=== PATIENT | female | born 1940 | race Caucasian/White ===

== ENCOUNTER → 2016-11-25 | Outpatient (CLI) | payer MEDICARE ==
[~2016-11-25] MED LIST: AC500T PO; AC80CT PO; ACET-789 PO; ACET80DR75 PO; ASP81TEC PO; CARV12.53 PO; CEPH500C PO; CHOL10003 PO; CLOP75TA PO; DABI150C2 PO; ENAL5TAB PO; FEXO1TAB49 PO; FURO20TA4 PO; GABA-531 PO; HCT25T PO; LVT.05T PO; MELO-195 PO; MTF500T PO; OMEP40CA36 PO; OXYC-12 PO; PNT40TEC PO; POTASSIUM CHLORIDE 10 MEQ; PRAV40TA2 PO; PROP1TAB77 PO; RIVA20TA2 PO; SIMV20TA3 PO; SOTA80TA38 PO; TRM50T PO; UBID100C17 PO; VIT1TABL57 PO
--- OUTSIDE RECORDS SUMMARY | 2016-11-25 07:51 | XMS REPORT | Clinical Summary ---
Author Author Admin, LAI Organization [facility] Address Unknown Phone Unavailable Allergies, Adverse Reactions, Alerts Allergy Name Reaction Description Start Date Severity Status Provider PRAVACHOL Critical Active Malick Moreira MD IMDUR Critical Active Malick Moreira MD LIPITOR Critical Active Malick Moreira MD Conditions or Problems Problem Name Problem Code Onset Date Status Entry Date Provider Comment Standard Description Annotate Hyperlipidemia 272.4 Active Malick Moreira MD Other and unspecified hyperlipidemia Hypothyroidism 244.9 Active Malick Moreira MD Unspecified hypothyroidism U T I-Recurrent Active Malick Moreira MD Urinary tract infection, site not specified Incomplete Bladder Emptying Active Malick Moreira MD Retention of urine, unspecified Bladder Prolapse Active Malick Moreira MD Unspecified disorder of bladder Medication List Medication Instructions Start Date Stop Date Generic Name NDC Status Provider Patient Instruction CIPRO 500 MG TABS 1 tablet twice a day CIPROFLOXACIN HCL 57776363151 No Longer Active Malick Moreira MD Active CEFTIN 500 MG ORAL TABS bid CEFUROXIME AXETIL 25511379283 No Longer Active Malick Moreira MD Active CARVEDILOL 12.5 MG ORAL TABS bid CARVEDILOL 15783507657 Active Malick Moreira MD Active CEFTIN 500 MG ORAL TABS bid CEFTIN 500 MG ORAL TABS 707459 CEFUROXIME AXETIL Inactive CIPRO 500 MG TABS 1 tablet twice a day CIPRO 500 MG TABS 476983 CIPROFLOXACIN HCL Inactive Vital Signs Date Name Value Unit Range Description blood pressure, diastolic - 8462-4 75 mm[Hg] BP maldonado blood pressure, systolic - 8480-6 120 mm[Hg] BP sys pulse rate E&M - 8867-4 65 /min Heart rate temperature E&M 97.6 [degF] Body temperature weight E&M - 3141-9 167 [lb_av] Weight Measured height E&M - 8302-2 190 [in_us] Bdy height pulse rate E&M - 8867-4 6 /min Heart rate temperature E&M 97.5 [degF] Body temperature weight E&M - 3141-9 67.5 [lb_av] Weight Measured Diagnostic Results Date Name Value Unit Range Description Office Visit: 2 week follow up UTI - Chemistry RBC, urine, dipstick 2+ protein, total urine random negative mg/dL Office Visit: 2 week follow up UTI - Urinalysis pH, urine, semiquantitative 5 specific gravity, urine 1.010 ketones, urine, by test strip negative bilirubin, urine negative glucose, urine, semiquantitative 2+ urinalysis, routine Clean Catch culture status Yes urine color yellow appearance, urine clear leukocyte esterase, urine, by dipstick 2+ nitrite, urine, semiquantitative negative urobilinogen, urine, semiquantitative (dipstick) negative protein, urine, semiquantitative (dipstick) negative Encounters Code Encounter Date Provider Facility CPT-76978 Level 3 Est. Patient 16:01:05 SMALL ENGINE TECHNICIAN Malick Moreira MD [facility] CPT-72554 Level 3 New Patient 16:48:49 SMALL ENGINE TECHNICIAN Malick Moreira MD [facility] Procedures Code Procedure Name Date Entry Date Standard Description CPT-52507 Urine Dip (Floor Use Only) 16:01:16 SMALL ENGINE TECHNICIAN CPT-53190 Cystoscopy 16:01:06 SMALL ENGINE TECHNICIAN CPT-35010 Dil F ureth int 16:01:05 SMALL ENGINE TECHNICIAN CPT-14048 Urine Dip (Floor Use Only) 16:48:49 SMALL ENGINE TECHNICIAN CPT-43393 Bladder Scan 16:48:49 SMALL ENGINE TECHNICIAN
--- NOTE | 2016-11-27 11:59 | ECHOCARDIOGRAPHY REPORT ---
PROCEDURE PHYSICIAN: AMADA STOUT DATE OF PROCEDURE: 11/25/2016 TWO DIMENSIONAL ECHOCARDIOGRAM REPORT PRIMARY PHYSICIAN: OTHER PHYSICIAN: REFERRING PHYSICIAN: Dr. Kristen Morton ORDERING PHYSICIAN: INDICATION FOR THE PROCEDURE: Coronary artery disease, hypertension MEASUREMENTS DERIVED VALUES LV DIAMETER (LAX) NORMALS NORMALS Diastolic 4.1 (3.6-5.2) Eject. Fract. 50% (60%+/-6%) Systolic (2.3-3.9) Diastolic Vol. % Shortening (0.22-0.42) Systolic Vol. Aortic Root IVS THICKNESS Diastolic 1.2 (0.6-1.1) LVPW THICKNESS Diastolic 1.2 (0.6-1.1) LA DIAMETER Systolic 5.5 (2.1-3.7) FINDINGS: 1. Technical quality is good. 2. The left ventricle is dilated with systolic function preserved in the lower normal limits. Estimated ejection fraction 50%. 3. The left atrium is dilated. No clot or thrombus were seen within the left atrium. 4. The right atrium and right ventricle are normal in size. No clot or thrombus were seen within the right side. 5. Mitral valve is normal in morphology with moderate mitral regurgitation noted by color Doppler flow. No mitral valve prolapse. No mitral valve stenosis. 6. Aortic valve is trileaflet with normal opening and closing pattern. No significant aortic stenosis or regurgitation was seen. 7. Tricuspid valve is normal in morphology with moderate to severe tricuspid regurgitation noted by color Doppler flow. Doppler across tricuspid valve estimated pulmonary artery pressure of 39+ right atrial pressure. 8. Pulmonic valve is normal in morphology with mild pulmonary regurgitation noted by color Doppler flow. 9. No pericardial effusion. CONCLUSION: 1. Mild to moderate left ventricular hypertrophy with dilated left ventricle. Systolic function is preserved. Estimated ejection fraction 50%. 2. Left atrial enlargement. 3. Moderate mitral regurgitation, moderate to severe tricuspid regurgitation, mild pulmonary regurgitation. 4. Pulmonary hypertension with estimated pulmonary artery pressure of 45 mmHg Job ID: [id number] Dictated Date: 11/27/2016 08:18:11 Pattern Maker Programer Date: 11/27/2016 11:51:40 / david
== END ==
LOC: CARD 07:47
PROVIDERS: ATTEND Internal Medicine Cardiovascular Disease
DX: I25.10 Atherosclerotic heart disease of native coronary artery without angina pectoris (principal); I11.0 Hypertensive heart disease with heart failure; E78.2 Mixed hyperlipidemia; I48.0 Paroxysmal atrial fibrillation; I51.7 Cardiomegaly
CPT/HCPCS: 93306

== ENCOUNTER → 2016-12-04 | Outpatient (CLI) | payer MEDICARE ==
[~2016-12-04] MED LIST changes: +REGADENOSON 0.4 MG/5 ML SYR (LEXISCAN) IV ONE
[2016-12-04] MEDS: CATHETER FLUSH 10 ML SYR IV PRN ×2 (08:27→09:57)
[2016-12-04 09:54] VITALS: BP 163/85
--- NOTE | 2016-12-05 09:54 | STRESS TEST ---
PROCEDURE PHYSICIAN: AMADA STOUT DATE OF PROCEDURE: 12/04/2016 LEXISCAN MYOVIEW STRESS TEST REPORT: REFERRING PHYSICIAN: Dr. Kristen Morton. INDICATION: Coronary artery disease. BASELINE HEART RATE: 56 BASELINE BLOOD PRESSURE: 163/85 BASELINE EKG: Sinus rhythm with no ischemic changes. IN SUMMARY: The patient was injected with 10.41 mCi of technetium 99 Myoview and the resting images were obtained. Then the patient received 0.4 mg of Lexiscan followed by 30 mCi of technetium 99 Myoview. Throughout the test, there were no EKG changes. The resting and stress images were reviewed and compared in the short axis, horizontal long axis, and vertical long axis views. Review of the images showed breast attenuation. There is reversible ischemia involving the whole anterior wall, portion of the anterior septum and anterolateral wall. SSS is 7, SDS 6, TID value 0.91. On the gated images, the left ventricle appeared to be normal size with normal contractility. Calculated ejection fraction 65%. IN CONCLUSION: 1. The patient tolerated Lexiscan well. 2. Reversible ischemia involving the whole anterior wall, portion of the anterior lateral wall, anterior septum, with breast attenuation. 3. Normal left ventricular size with normal contractility. Calculated ejection fraction 65%. Job ID: [id number] Dictated Date: 12/05/2016 07:04:45 Hospitality Intern Date: 12/05/2016 09:50:51 / manisha
== END ==
LOC: CARD 07:59
PROVIDERS: ATTEND Internal Medicine Cardiovascular Disease
DX: I25.10 Atherosclerotic heart disease of native coronary artery without angina pectoris (principal); I11.0 Hypertensive heart disease with heart failure; E78.2 Mixed hyperlipidemia; I48.0 Paroxysmal atrial fibrillation; I51.7 Cardiomegaly
CPT/HCPCS: 78452; 93017

== ENCOUNTER 2016-12-11 06:44 | Day surgery (SDC) | payer MEDICARE ==
[~2016-12-11] VITALS: Ht 170.2 cm; Wt 87.1 kg
[2016-12-11] VITALS (10 sets, daily range): BP systolic 124–147; BP diastolic 62–82
[~2016-12-11 06:44] MED LIST changes: -ACET-789 PO; -GABA-531 PO; -PRAV40TA2 PO; -REGADENOSON 0.4 MG/5 ML SYR (LEXISCAN) IV ONE
[2016-12-11] MEDS ORDERED: LIDOCAINE 1% INJ 20 ML (XYLOCAINE) VIAL ONE (06:55)
[2016-12-11] MEDS ORDERED: NS IV 1000 ML 1,000 ML ONE (06:55)
[2016-12-11] MEDS ORDERED: HEParin (CATH LAB) 2,000 ML IV ONE (06:55)
[2016-12-11] MEDS ORDERED: NS IV 1000 ML 1,000 ML IV SCH ×3 (07:02→08:39)
[2016-12-11 07:30] LABS: MEAN PLATELET VOLUME 10.4 FL (7.4-10.4); RED BLOOD COUNT 4.42 10^6/uL (4.35-5.85); RED CELL DISTRIBUTION WIDTH 13.5 % (10.0-14.5); WHITE BLOOD COUNT 6.2 10^3/uL (4.3-11.0)
[2016-12-11 07:37] LABS: BILIRUBIN,URINE NEGATIVE (NEGATIVE); KETONES,URINE NEGATIVE (NEGATIVE); LEUKOCYTE ESTERASE ,URINE 1+ (NEGATIVE); NITRITE,URINE NEGATIVE (NEGATIVE); PH,URINE 6.5 (5-9); PROTEIN,URINE NEGATIVE (NEGATIVE); UROBILINOGEN,URINE NORMAL (NORMAL)
[2016-12-11 07:40] LABS: INR 1.2 (0.8-1.4); PROTHROMBIN TIME PATIENT 15.1 SEC (12.2-14.7)
[2016-12-11 07:49] LABS: SQUAMOUS EPITHELIAL CELL,UR 0-2 /HPF; WBC,URINE 0-2 /HPF
[2016-12-11] MEDS ORDERED: ACET-789 PO (07:54)
[2016-12-11] MEDS ORDERED: GABA-531 PO (07:54)
[2016-12-11] MEDS ORDERED: PRAV40TA2 PO (07:54)
[2016-12-11 07:55] LABS: ALBUMIN 4.1 G/DL (3.2-4.5); BILIRUBIN,TOTAL 0.6 MG/DL (0.1-1.0); CALCIUM 9.8 MG/DL (8.5-10.1); CREATININE SERUM 1.09 MG/DL (0.60-1.30); TOTAL PROTEIN 6.8 G/DL (6.4-8.2)
[2016-12-11] MEDS ORDERED: MIDAZOLAM 5 MG/5 ML (VERSED) VIAL ONE (07:56)
[2016-12-11] MEDS ORDERED: fentaNYL INJECTION 100 MCG/2 ML AMP ONE (07:56)
--- NOTE | 2016-12-11 08:17 | Cardiac Procedure Note-CS/ASA ---
Pre-Procedure Note Pre-Op Procedure Note H&P Reviewed The H&P was reviewed, patient examined and no changes noted. Date H&P Reviewed: Dec 11, 2016 Time H&P Reviewed: 08:17 Conscious Sedation Pre-Proced Time Reviewed: 08:17 ASA Class: 3 Airway Mallampati Classification: (tanana appropriate class) I. II. III, IV Lungs Heart ASA score ASA 1: a normal healthy patient ASA 2: a patient with a mild systemic disease (mid diabetes, controlled hypertension, obesity x ASA 3: a patient with a severe systemic disease that limits activity (angina , COPD, prior Myocardial infarction) ASA 4: a patient with an incapacitating disease that is a constant threat to life (CHF, renal failure) ASA 5: a moribund patient not expected to survive 24 hrs. (ruptured aneurysm) ASA 6: a declared brain patient whose organs are being harvested. For emergent operations, add the letter E after the classification Grade 3 Sedation Plan: Analgesia, Amnesia, Plan communicated to team members, Discussed options with patient/fam, Discussed risks with patient/fam Note The patient is an appropriate candidate to undergo the planned procedure, sedation, and anesthesia. The patient immediately re-assessed prior to indication. AMADA STOUT MD Dec 11, 2016 08:17
--- NOTE | 2016-12-11 08:18 | Diagnostic Imaging Report ---
INDICATION: Coronary artery disease PA chest obtained at 7:38 hours a.m. Heart is mildly enlarged. The mediastinal silhouette is unremarkable. There is no acute infiltrate or pneumothorax or pleural fluid. IMPRESSION: Cardiomegaly with no acute process in the chest. Dictated by: Dictated on workstation # [id number]
--- NOTE | 2016-12-11 08:41 | Discharge Inst-Post CATH ---
Discharge Inst-CATH Post Cardiac Cath D/C Inst Follow Up/Plan Appointment with Dr Tabor's office in 2-4 weeks CARDIAC CATH DISCHARGE INSTRUCTIONS *Hold Metformin for 48 hours post heart cath. ACTIVITY * Go Home directly and rest. * Limit activity of the leg (or wrist if it was used) for 7 days including aerobics, swimming, jogging, bicycling, etc. * Restrict stair-climbing for 7 days if possible, if not, climb up with your non -cath leg, then bring together on the same step. * Avoid lifting, pushing, pulling or excessive movement of the affected extremity for 7 days. * Customary sexual activity may be resumed after 2 days-use caution not to use a position that strains or causes pain to the affected extremity. * No driving for 24 hours. * NO SMOKING. * Avoid straining for bowel movements for 7 days. * Gentle walking on level ground is allowed. * Returning to work will depend on the type of procedure and the results. Your doctor will discuss this with you. CALL YOUR DOCTOR FOR ANY OF THE FOLLOWING: *If bleeding from the puncture site occurs- Apply gentle pressure to site with clean cloth and call your doctor or EMS. * If a knot or lump forms under the skin, increases in size, or causes pain. * If bruising appears to be worsening or moving further down your leg instead of disappearing. * Temperature above 101 F. CARE OF YOUR GROIN INCISION; * Bruising or purple discoloration of the skin near the puncture site is common. * You may shower only, no bathtub bathing for 5 days. Be careful to avoid slipping as your leg may feel stiff. * If a closure device was used on your femoral artery, please see the attached guide regarding care of the device and your leg. * REMOVE the dressing from your groin the next day after your procedure in the shower. CARE OF YOUR WRIST INCISION; * Bruising or purple discoloration of the skin near the puncture site is common. * You may shower. * DO NOT submerge wrist. * Remove dressing in 24 hours. AMADA TABOR MD Dec 11, 2016 08:41
[2016-12-11] MEDS ORDERED: PATIENT MAY USE OWN MEDS, ALL PO SCH (08:45)
--- NOTE | 2016-12-11 13:56 | CARDIAC CATHETERIZATION ---
PROCEDURE PHYSICIAN: AMADA STOUT DATE OF PROCEDURE: 12/11/2016 REFERRING PHYSICIAN: Dr. Kristen Morton BRIEF HISTORY: Mrs. Castro is a 76-year-old lady with history of coronary artery disease. Stent to the LAD. She had an abnormal stress test. She was scheduled for left heart catheterization, possible PTCA. PROCEDURE NOTE: After explaining the procedure to the patient, all pros and cons were explained. All questions were answered. The patient signed a consent, then she was placed on the cardiac catheterization laboratory. The right groin was prepped in a sterile fashion. Local anesthesia applied to right groin. 6-Vietnamese sheath was placed in the right femoral artery. Combination of right and left Shahbaz catheter were used to access the right and left coronary system. Multiple views were obtained. Pigtail catheter advanced to the left ventricular cavity. Pressure was measured. Pullback LV to aorta was done. No left ventriculogram was done. At the end of the procedure, sheath was removed. Mynx device deployed. Hemostasis achieved. Total contrast used is 40 milliliter of Omnipaque. Total radiation dose is 203 mGy. FINDINGS: HEMODYNAMICS: LV pressure 135/7, end-diastolic pressure of 7, aortic pressure 133/62, mean of 88. No significant gradient across the aortic valve. ANATOMY: 1. Left main coronary artery is bifurcating to left anterior descending and left circumflex artery with no obstructive disease. 2. Left anterior descending artery is moderate in size. Tapers down into a smaller artery. Stent in the mid LAD is patent. Small vessel disease distally. 3. Left circumflex artery is moderate in size with no obstructive disease. 4. Right coronary artery is moderate in size with mild disease proximally, nonobstructive disease. 5. No left ventriculogram was done. CONCLUSION: 1. Patent stent in the mid LAD with the LAD tapering down into a small artery. Small vessel disease distally. Otherwise, no significant obstructive disease. 2. Normal left ventricular end-diastolic pressure. No left ventriculogram was done. DISCUSSION AND RECOMMENDATION: Medical therapy is recommended. No intervention is warranted. Job ID: [id number] Dictated Date: 12/11/2016 08:48:18 Social Sciences Chair Date: 12/11/2016 13:49:42 / david
--- NOTE | 2016-12-12 07:41 | DISCHARGE SUMMARY ---
PROCEDURE PHYSICIAN: AMADA STOUT DATE OF PROCEDURE: 12/11/2016 REFERRING PHYSICIAN: Dr. Kristen Morton BRIEF HISTORY: Mrs. Castro is a 76-year-old lady with history of coronary artery disease. Stent to the LAD. She had an abnormal stress test. She was scheduled for left heart catheterization, possible PTCA. PROCEDURE NOTE: After explaining the procedure to the patient, all pros and cons were explained. All questions were answered. The patient signed a consent, then she was placed on the cardiac catheterization laboratory. The right groin was prepped in a sterile fashion. Local anesthesia applied to right groin. 6-Yakut sheath was placed in the right femoral artery. Combination of right and left Shahbaz catheter were used to access the right and left coronary system. Multiple views were obtained. Pigtail catheter advanced to the left ventricular cavity. Pressure was measured. Pullback LV to aorta was done. No left ventriculogram was done. At the end of the procedure, sheath was removed. Mynx device deployed. Hemostasis achieved. Total contrast used is 40 milliliter of Omnipaque. Total radiation dose is 203 mGy. FINDINGS: HEMODYNAMICS: LV pressure 135/7, end-diastolic pressure of 7, aortic pressure 133/62, mean of 88. No significant gradient across the aortic valve. ANATOMY: 1. Left main coronary artery is bifurcating to left anterior descending and left circumflex artery with no obstructive disease. 2. Left anterior descending artery is moderate in size. Tapers down into a smaller artery. Stent in the mid LAD is patent. Small vessel disease distally. 3. Left circumflex artery is moderate in size with no obstructive disease. 4. Right coronary artery is moderate in size with mild disease proximally, nonobstructive disease. 5. No left ventriculogram was done. CONCLUSION: 1. Patent stent in the mid LAD with the LAD tapering down into a small artery. Small vessel disease distally. Otherwise, no significant obstructive disease. 2. Normal left ventricular end-diastolic pressure. No left ventriculogram was done. DISCUSSION AND RECOMMENDATION: Medical therapy is recommended. No intervention is warranted. FINAL DIAGNOSIS: 1. Coronary artery disease. 2. Hypertension. 3. Hyperlipidemia. Job ID: [id number] Dictated Date: 12/11/2016 08:48:18 Content Publisher Date: 12/11/2016 13:55:52/david
== END 2016-12-11 13:05 | disposition home or self-care (01) ==
LOC: CATH 06:44 → SURG 08:58 → CATH 13:05
PROVIDERS: ATTEND Internal Medicine Cardiovascular Disease
DX: R94.39 Abnormal result of other cardiovascular function study (principal); I25.10 Atherosclerotic heart disease of native coronary artery without angina pectoris; I10 Essential (primary) hypertension; E78.5 Hyperlipidemia, unspecified; I48.0 Paroxysmal atrial fibrillation; J44.9 Chronic obstructive pulmonary disease, unspecified; G47.33 Obstructive sleep apnea (adult) (pediatric); E03.9 Hypothyroidism, unspecified; K21.9 Gastro-esophageal reflux disease without esophagitis; Z79.899 Other long term (current) drug therapy; Z79.01 Long term (current) use of anticoagulants; Z95.5 Presence of coronary angioplasty implant and graft
CPT/HCPCS: 36415; 71010; 80053; 80061; 81000; 85027; 85610; 85730; 87081; 93005; 93458

== ENCOUNTER 2017-04-12 09:26 | Observation (INO) | payer MEDICARE ==
[~2017-04-12] VITALS: Ht 170.2 cm; Wt 87.1 kg
[~2017-04-12 09:26] MED LIST changes: +ACET-789 PO; +GABA-531 PO; +PRAV40TA2 PO
--- OUTSIDE RECORDS SUMMARY | 2017-04-12 09:31 | XMS REPORT | Clinical Summary ---
Author Author Admin, LAI Organization [facility] Address Unknown Phone Unavailable Allergies, Adverse Reactions, [...] Status Provider Patient Instruction CIPRO 500 MG TAB 1 tablet two times daily CIPROFLOXACIN HCL 28620542556 Active Anahy Francisco Active CIPRO 500 MG TABS 1 tablet twice a day CIPROFLOXACIN HCL 87481895835 No Longer Active Malick Moreira MD Active CEFTIN 500 MG ORAL TABS bid CEFUROXIME AXETIL 49018558476 No Longer Active Malick Moreira MD Active CARVEDILOL 12.5 MG ORAL TABS bid CARVEDILOL 46200793384 Active Malick Moreira MD Active CEFTIN 500 MG ORAL TABS bid CEFTIN 500 MG ORAL TABS 431587 CEFUROXIME AXETIL Inactive CIPRO 500 MG TABS 1 tablet twice a day CIPRO 500 MG TABS 293615 CIPROFLOXACIN HCL Inactive Vital Signs Date Name Value Unit Range Description blood pressure, diastolic - 8462-4 73 mm[Hg] BP maldonado blood pressure, systolic - 8480-6 133 mm[Hg] BP sys pulse rate E&M - 8867-4 81 /min Heart rate temperature E&M 96.9 [degF] Body temperature weight E&M - 3141-9 190.4 [lb_av] Weight Measured blood pressure, diastolic - 8462-4 75 mm[Hg] [...] negative Encounters Code Encounter Date Provider Facility CPT-87762 Level 3 Est. Patient 14:34:12 CDT Malick Moreira MD [facility] CPT-15028 Level 3 Est. Patient 08:00:19 CDT Malick Moreira MD [facility] CPT-27978 Level 3 Est. Patient 16:01:05 LONG TERM CARE PHARMACIST Malick Moreira MD [facility] [place] CPT-96464 Level 3 New Patient 16:48:49 LONG TERM CARE PHARMACIST Malick Moreira MD [facility] [place] Procedures Code Procedure Name Date Entry Date Standard Description CPT-27765 Urine Dip (Floor Use Only) 14:34:13 CDT CPT-49736 Insert non indwelling bld cath 08:00:20 CDT CPT-01047 Bladder Scan 08:00:20 CDT CPT-56986 Urine Dip (Floor Use Only) 16:01:16 LONG TERM CARE PHARMACIST CPT-33427 Cystoscopy 16:01:06 LONG TERM CARE PHARMACIST CPT-30542 Dil F ureth int 16:01:05 LONG TERM CARE PHARMACIST CPT-37970 Urine Dip (Floor Use Only) 16:48:49 LONG TERM CARE PHARMACIST CPT-61163 Bladder Scan 16:48:49 LONG TERM CARE PHARMACIST
--- OUTSIDE RECORDS SUMMARY | 2017-04-12 09:32 | XMS REPORT | Clinical Summary ---
Author Author Admin, LAI Organization [facility] Address Unknown Phone Unavailable Allergies, Adverse Reactions, [...] 1 tablet two times daily CIPROFLOXACIN HCL 79997336847 No Longer Active Anahy Francisco Active CIPRO 500 MG TABS 1 tablet twice a day CIPROFLOXACIN HCL 51310783346 No Longer Active Malick Moreira MD Active CEFTIN 500 MG ORAL TABS bid CEFUROXIME AXETIL 07136507676 No Longer Active Malick Moreira MD Active CARVEDILOL 12.5 MG ORAL TABS bid CARVEDILOL 68550655866 Active Malick Moreira MD Active CEFTIN 500 MG ORAL TABS bid CEFTIN 500 MG ORAL TABS 415749 CEFUROXIME AXETIL Inactive CIPRO 500 MG TABS 1 tablet twice a day CIPRO 500 MG TABS 688844 CIPROFLOXACIN HCL Inactive CIPRO 500 MG TAB 1 tablet two times daily CIPRO 500 MG TAB 774384 CIPROFLOXACIN HCL Inactive Vital Signs Date Name Value Unit Range Description blood pressure, diastolic - 8462-4 58 mm[Hg] BP maldonado blood pressure, systolic - 8480-6 106 mm[Hg] BP sys pulse rate E&M - 8867-4 59 /min Heart rate temperature E&M 96.6 [degF] Body temperature weight E&M - 3141-9 191 [lb_av] Weight Measured blood pressure, diastolic - 8462-4 73 mm[Hg] [...] (dipstick) negative protein, urine, semiquantitative (dipstick) negative Office Visit: Follow up UTI - Chemistry RBC, urine, dipstick 1+ protein, total urine random negative mg/dL Office Visit: Follow up UTI - Urinalysis pH, urine, semiquantitative 5 specific gravity, urine 1.015 urinalysis, routine Clean Catch culture status Yes ketones, urine, by test strip negative bilirubin, urine negative glucose, urine, semiquantitative negative urine color yellow appearance, urine clear leukocyte esterase, urine, by dipstick 3+ nitrite, urine, semiquantitative positive urobilinogen, urine, semiquantitative (dipstick) 0.2 protein, urine, semiquantitative (dipstick) negative Encounters Code Encounter Date Provider Facility CPT-30234 Level 3 Est. Patient 14:18:16 CDT Malick Moreira MD [facility] CPT-73961 Level 3 Est. Patient 14:34:12 CDT Malick Moreira MD [facility] CPT-35874 Level 3 Est. Patient 08:00:19 CDT Malick Moreira MD [facility] CPT-43312 Level 3 Est. Patient 16:01:05 STABILIZING MACHINE OPERATOR Malick Moreira MD [facility] CPT-36896 Level 3 New Patient 16:48:49 STABILIZING MACHINE OPERATOR Malick Moreira MD [facility] [place] Procedures Code Procedure Name Date Entry Date Standard Description CPT-47769 Urine Dip (Floor Use Only) 14:18:17 CDT CPT-15831 Bladder Scan 14:18:17 CDT CPT-28161 Urine Dip (Floor Use Only) 14:34:13 CDT CPT-55670 Insert non indwelling bld cath 08:00:20 CDT CPT-42831 Bladder Scan 08:00:20 CDT CPT-27547 Urine Dip (Floor Use Only) 16:01:16 STABILIZING MACHINE OPERATOR CPT-84625 Cystoscopy 16:01:06 STABILIZING MACHINE OPERATOR CPT-55494 Dil F ureth int 16:01:05 STABILIZING MACHINE OPERATOR CPT-85213 Urine Dip (Floor Use Only) 16:48:49 STABILIZING MACHINE OPERATOR CPT-37717 Bladder Scan 16:48:49 STABILIZING MACHINE OPERATOR
--- OUTSIDE RECORDS SUMMARY | 2017-04-12 09:32 | XMS REPORT | Clinical Summary ---
Author Author Admin, NewAer Organization [facility] Address Unknown Phone Unavailable Allergies, Adverse Reactions, [...] 1 tablet twice a day CIPROFLOXACIN HCL 37166788656 No Longer Active Malick Moreira MD Active CEFTIN 500 MG ORAL TABS bid CEFUROXIME AXETIL 10560708645 No Longer Active Malick Moreira MD Active CARVEDILOL 12.5 MG ORAL TABS bid CARVEDILOL 50960901105 Active Malick Moreira MD Active CEFTIN 500 MG ORAL TABS bid CEFTIN 500 MG ORAL TABS 077886 CEFUROXIME AXETIL Inactive CIPRO 500 MG TABS 1 tablet twice a day CIPRO 500 MG TABS 183427 CIPROFLOXACIN HCL Inactive Vital Signs Date Name [...] negative Encounters Code Encounter Date Provider Facility CPT-34889 Level 3 Est. Patient 08:00:19 CDT Malick Moreira MD [facility] CPT-34631 Level 3 Est. Patient 16:01:05 TECHNICAL SALES SPECIALIST Malick Moreira MD [facility] CPT-96895 Level 3 New Patient 16:48:49 TECHNICAL SALES SPECIALIST Malick Moreira MD [facility] Procedures Code Procedure Name Date Entry Date Standard Description CPT-27298 Insert non indwelling bld cath 08:00:20 CDT CPT-68721 Bladder Scan 08:00:20 CDT CPT-57022 Urine Dip (Floor Use Only) 16:01:16 TECHNICAL SALES SPECIALIST CPT-12118 Cystoscopy 16:01:06 TECHNICAL SALES SPECIALIST CPT-28976 Dil F ureth int 16:01:05 TECHNICAL SALES SPECIALIST CPT-60778 Urine Dip (Floor Use Only) 16:48:49 TECHNICAL SALES SPECIALIST CPT-38414 Bladder Scan 16:48:49 TECHNICAL SALES SPECIALIST
--- OUTSIDE RECORDS SUMMARY | 2017-04-12 09:32 | XMS REPORT | Clinical Summary ---
Author Author Admin, [facility] Organization [facility] Address Unknown Phone Unavailable Allergies, Adverse Reactions, Alerts Allergy Name Reaction Description Start Date Severity Status Provider Allergies Unknown Conditions or Problems Problem Name Problem Code Onset Date Status Entry Date Provider Comment Standard Description Annotate Hyperlipidemia 272.4 Active Malick Moreira MD Other and unspecified hyperlipidemia Hypothyroidism 244.9 Active Malick Moreira MD Unspecified hypothyroidism U T I-Recurrent Active Malick Moreira MD Urinary tract infection, site not specified Medication List Medication Instructions Start Date Stop Date Generic Name NDC Status Provider Patient Instruction CARVEDILOL 12.5 MG ORAL TABS bid CARVEDILOL 03704561527 Active Malick Moreira MD Active CEFTIN 500 MG ORAL TABS bid CEFUROXIME AXETIL 82742081290 Active Malick Moreira MD Active Vital Signs Date Name Value Unit Range Description height E&M - 8302-2 190 [in_us] Bdy height pulse rate E&M - 8867-4 6 /min Heart rate temperature E&M 97.5 [degF] Body temperature weight E&M - 3141-9 67.5 [lb_av] Weight Measured Encounters Code Encounter Date Provider Facility CPT-80570 Level 3 New Patient 16:48:49 WILDLIFE CONSERVATIONIST Malick Moreira MD [facility] Procedures Code Procedure Name Date Entry Date Standard Description CPT-30395 Urine Dip (Floor Use Only) 16:48:49 WILDLIFE CONSERVATIONIST CPT-51987 Bladder Scan 16:48:49 WILDLIFE CONSERVATIONIST
--- OUTSIDE RECORDS SUMMARY | 2017-04-12 09:32 | XMS REPORT | Clinical Summary ---
Author Author Admin, LAI Organization [facility] [employer] Address Unknown Phone Unavailable Allergies, Adverse Reactions, [...] 1 tablet twice a day CIPROFLOXACIN HCL 57111476588 No Longer Active Malick Moreira MD Active CEFTIN 500 MG ORAL TABS bid CEFUROXIME AXETIL 50038915542 No Longer Active Malick Moreira MD Active CARVEDILOL 12.5 MG ORAL TABS bid CARVEDILOL 83202774083 Active Malick Moreira MD Active CEFTIN 500 MG ORAL TABS bid CEFTIN 500 MG ORAL TABS 869294 CEFUROXIME AXETIL Inactive CIPRO 500 MG TABS 1 tablet twice a day CIPRO 500 MG TABS 347239 CIPROFLOXACIN HCL Inactive Vital Signs Date Name [...] negative Encounters Code Encounter Date Provider Facility CPT-90827 Level 3 Est. Patient 08:00:19 CDT Malick Moreira MD [facility] CPT-86933 Level 3 Est. Patient 16:01:05 ARCH SUPPORT MAKER Malick Moreira MD [facility] [place] CPT-91024 Level 3 New Patient 16:48:49 ARCH SUPPORT MAKER Malick Moreira MD [facility] [place] Procedures Code Procedure Name Date Entry Date Standard Description CPT-51935 Insert non indwelling bld cath 08:00:20 CDT CPT-67986 Bladder Scan 08:00:20 CDT CPT-87784 Urine Dip (Floor Use Only) 16:01:16 ARCH SUPPORT MAKER CPT-40995 Cystoscopy 16:01:06 ARCH SUPPORT MAKER CPT-93970 Dil F ureth int 16:01:05 ARCH SUPPORT MAKER CPT-09262 Urine Dip (Floor Use Only) 16:48:49 ARCH SUPPORT MAKER CPT-54538 Bladder Scan 16:48:49 ARCH SUPPORT MAKER
--- OUTSIDE RECORDS SUMMARY | 2017-04-12 09:32 | XMS REPORT | Clinical Summary ---
Author Author Admin, LAI Organization [facility] [employer] Address Unknown Phone Unavailable Allergies, Adverse Reactions, [...] 1 tablet twice a day CIPROFLOXACIN HCL 81199102877 No Longer Active Malick Moreira MD Active CEFTIN 500 MG ORAL TABS bid CEFUROXIME AXETIL 83710626535 No Longer Active Malick Moreira MD Active CARVEDILOL 12.5 MG ORAL TABS bid CARVEDILOL 22785594835 Active Malick Moreira MD Active CEFTIN 500 MG ORAL TABS bid CEFTIN 500 MG ORAL TABS 531494 CEFUROXIME AXETIL Inactive CIPRO 500 MG TABS 1 tablet twice a day CIPRO 500 MG TABS 102852 CIPROFLOXACIN HCL Inactive Vital Signs Date Name [...] negative Encounters Code Encounter Date Provider Facility CPT-60938 Level 3 Est. Patient 16:01:05 CLAIM PROCESSING SPECIALIST Malick Moreira MD [facility] CPT-01784 Level 3 New Patient 16:48:49 CLAIM PROCESSING SPECIALIST Malick Moreira MD [facility] [place] Procedures Code Procedure Name Date Entry Date Standard Description CPT-71907 Urine Dip (Floor Use Only) 16:01:16 CLAIM PROCESSING SPECIALIST CPT-00924 Cystoscopy 16:01:06 CLAIM PROCESSING SPECIALIST CPT-00426 Dil F ureth int 16:01:05 CLAIM PROCESSING SPECIALIST CPT-91728 Urine Dip (Floor Use Only) 16:48:49 CLAIM PROCESSING SPECIALIST CPT-01839 Bladder Scan 16:48:49 CLAIM PROCESSING SPECIALIST
--- OUTSIDE RECORDS SUMMARY | 2017-04-12 09:32 | XMS REPORT | Clinical Summary ---
Author Author Admin, LAI Organization [facility] Address Unknown Phone Unavailable Allergies, Adverse Reactions, [...] 1 tablet two times daily CIPROFLOXACIN HCL 47186004386 No Longer Active Anahy Francisco Active CIPRO 500 MG TABS 1 tablet twice a day CIPROFLOXACIN HCL 68042097791 No Longer Active Malick Moreira MD Active CEFTIN 500 MG ORAL TABS bid CEFUROXIME AXETIL 01651969998 No Longer Active Malick Moreira MD Active CARVEDILOL 12.5 MG ORAL TABS bid CARVEDILOL 54383914443 Active Malick Moreira MD Active CEFTIN 500 MG ORAL TABS bid CEFTIN 500 MG ORAL TABS 076966 CEFUROXIME AXETIL Inactive CIPRO 500 MG TABS 1 tablet twice a day CIPRO 500 MG TABS 249953 CIPROFLOXACIN HCL Inactive CIPRO 500 MG TAB 1 tablet two times daily CIPRO 500 MG TAB 536169 CIPROFLOXACIN HCL Inactive Vital Signs Date Name Value Unit Range Description blood pressure, diastolic - 8462-4 70 mm[Hg] BP maldonado blood pressure, systolic - 8480-6 130 mm[Hg] BP sys height E&M - 8302-2 67.5 [in_us] Bdy height pulse rate E&M - 8867-4 80 /min Heart rate temperature E&M 96.8 [degF] Body temperature weight E&M - 3141-9 190 [lb_av] Weight Measured blood pressure, diastolic - 8462-4 58 mm[Hg] [...] negative Encounters Code Encounter Date Provider Facility CPT-50807 Level 3 Est. Patient 14:18:16 CDT Malick Moreira MD [facility] CPT-26061 Level 3 Est. Patient 14:34:12 CDT Malick Moreira MD [facility] CPT-62775 Level 3 Est. Patient 08:00:19 CDT Malick Moreira MD [facility] CPT-73662 Level 3 Est. Patient 16:01:05 ROUND CUTTER OPERATOR [facility]04096 Level 3 New Patient 16:48:49 ROUND CUTTER OPERATOR Malick Moreira MD [facility] Procedures Code Procedure Name Date Entry Date Standard Description CPT-45680 Urine Dip (Floor Use Only) 14:18:17 CDT CPT-34329 Bladder Scan 14:18:17 CDT CPT-92677 Urine Dip (Floor Use Only) 14:34:13 CDT CPT-72467 Insert non indwelling bld cath 08:00:20 CDT CPT-59391 Bladder Scan 08:00:20 CDT CPT-87891 Urine Dip (Floor Use Only) 16:01:16 ROUND CUTTER OPERATOR CPT-26897 Cystoscopy 16:01:06 ROUND CUTTER OPERATOR CPT-75768 Dil F ureth int 16:01:05 ROUND CUTTER OPERATOR CPT-53816 Urine Dip (Floor Use Only) 16:48:49 ROUND CUTTER OPERATOR CPT-78435 Bladder Scan 16:48:49 ROUND CUTTER OPERATOR
--- OUTSIDE RECORDS SUMMARY | 2017-04-12 09:33 | XMS REPORT | Clinical Summary ---
Author Author Admin, LAI Organization [facility] [employer] Address Unknown Phone Unavailable Allergies, Adverse Reactions, [...] 1 tablet twice a day CIPROFLOXACIN HCL 24114962147 Active Malick Moreira MD Active CEFTIN 500 MG ORAL TABS bid CEFUROXIME AXETIL 35076323974 No Longer Active Malick Moreira MD Active CARVEDILOL 12.5 MG ORAL TABS bid CARVEDILOL 55721681772 Active Malick Moreira MD Active CEFTIN 500 MG ORAL TABS bid CEFTIN 500 MG ORAL TABS 068939 CEFUROXIME AXETIL Inactive Vital Signs Date Name Value Unit Range Description height E&M - 8302-2 190 [in_us] Bdy height pulse rate E&M - 8867-4 6 /min Heart rate temperature E&M 97.5 [degF] Body temperature weight E&M - 3141-9 67.5 [lb_av] Weight Measured Encounters Code Encounter Date Provider Facility CPT-58261 Level 3 Est. Patient 16:01:05 CONTROL AREA OPERATOR Malick Moreira MD [facility] CPT-07779 Level 3 New Patient 16:48:49 CONTROL AREA OPERATOR Malick Moreira MD [facility] Procedures Code Procedure Name Date Entry Date Standard Description CPT-01976 Urine Dip (Floor Use Only) 16:01:16 CONTROL AREA OPERATOR CPT-36118 Cystoscopy 16:01:06 CONTROL AREA OPERATOR CPT-07864 Dil F ureth int 16:01:05 CONTROL AREA OPERATOR CPT-47905 Urine Dip (Floor Use Only) 16:48:49 CONTROL AREA OPERATOR CPT-81579 Bladder Scan 16:48:49 CONTROL AREA OPERATOR
--- OUTSIDE RECORDS SUMMARY | 2017-04-12 09:33 | XMS REPORT | Clinical Summary ---
Author Author Admin, [employer] Organization [facility] [employer] Address Unknown Phone Unavailable Allergies, Adverse Reactions, [...] 1 tablet twice a day CIPROFLOXACIN HCL 29137772505 No Longer Active Malick Moreira MD Active CEFTIN 500 MG ORAL TABS bid CEFUROXIME AXETIL 09289292422 No Longer Active Malick Moreira MD Active CARVEDILOL 12.5 MG ORAL TABS bid CARVEDILOL 01230600151 Active Malick Moreira MD Active CEFTIN 500 MG ORAL TABS bid CEFTIN 500 MG ORAL TABS 967657 CEFUROXIME AXETIL Inactive CIPRO 500 MG TABS 1 tablet twice a day CIPRO 500 MG TABS 052225 CIPROFLOXACIN HCL Inactive Vital Signs Date Name [...] negative Encounters Code Encounter Date Provider Facility CPT-08796 Level 3 Est. Patient 08:00:19 CDT Malick Moreira MD [facility] CPT-85865 Level 3 Est. Patient 16:01:05 SKIN CARE THERAPIST Malick Moreira MD [facility] CPT-97969 Level 3 New Patient 16:48:49 SKIN CARE THERAPIST Malick Moreira MD [facility] Procedures Code Procedure Name Date Entry Date Standard Description CPT-91675 Insert non indwelling bld cath 08:00:20 CDT CPT-39359 Bladder Scan 08:00:20 CDT CPT-82445 Urine Dip (Floor Use Only) 16:01:16 SKIN CARE THERAPIST CPT-81594 Cystoscopy 16:01:06 SKIN CARE THERAPIST CPT-18974 Dil F ureth int 16:01:05 SKIN CARE THERAPIST CPT-75770 Urine Dip (Floor Use Only) 16:48:49 SKIN CARE THERAPIST CPT-59195 Bladder Scan 16:48:49 SKIN CARE THERAPIST
--- OUTSIDE RECORDS SUMMARY | 2017-04-12 09:33 | XMS REPORT | Clinical Summary ---
Author Author Admin, E Organization [facility] Address Unknown Phone Unavailable Allergies, Adverse Reactions, [...] 1 tablet two times daily CIPROFLOXACIN HCL 56111801799 No Longer Active Anahy Francisco Active CIPRO 500 MG TABS 1 tablet twice a day CIPROFLOXACIN HCL 98024385451 No Longer Active Malick Moreira MD Active CEFTIN 500 MG ORAL TABS bid CEFUROXIME AXETIL 52643097494 No Longer Active Malick Moreira MD Active CARVEDILOL 12.5 MG ORAL TABS bid CARVEDILOL 67498858562 Active Malick Moreira MD Active CEFTIN 500 MG ORAL TABS bid CEFTIN 500 MG ORAL TABS 765845 CEFUROXIME AXETIL Inactive CIPRO 500 MG TABS 1 tablet twice a day CIPRO 500 MG TABS 764637 CIPROFLOXACIN HCL Inactive CIPRO 500 MG TAB 1 tablet two times daily CIPRO 500 MG TAB 237126 CIPROFLOXACIN HCL Inactive Vital Signs Date Name [...] negative Encounters Code Encounter Date Provider Facility CPT-40548 Level 3 Est. Patient 14:18:16 CDT Malick Moreira MD [facility] CPT-54797 Level 3 Est. Patient 14:34:12 CDT Malick Moreira MD [facility] CPT-79054 Level 3 Est. Patient 08:00:19 CDT Malick Moreira MD [facility] CPT-36645 Level 3 Est. Patient 16:01:05 OPERATIONS MANAGEMENT PROFESSIONALS Malick Moreira MD [facility] CPT-12475 Level 3 New Patient 16:48:49 OPERATIONS MANAGEMENT PROFESSIONALS Malick Moreira MD [facility] [employer] Procedures Code Procedure Name Date Entry Date Standard Description CPT-44822 Urine Dip (Floor Use Only) 14:18:17 CDT CPT-86107 Bladder Scan 14:18:17 CDT CPT-22993 Urine Dip (Floor Use Only) 14:34:13 CDT CPT-87141 Insert non indwelling bld cath 08:00:20 CDT CPT-54522 Bladder Scan 08:00:20 CDT CPT-40154 Urine Dip (Floor Use Only) 16:01:16 OPERATIONS MANAGEMENT PROFESSIONALS CPT-46424 Cystoscopy 16:01:06 OPERATIONS MANAGEMENT PROFESSIONALS CPT-66985 Dil F ureth int 16:01:05 OPERATIONS MANAGEMENT PROFESSIONALS CPT-13431 Urine Dip (Floor Use Only) 16:48:49 OPERATIONS MANAGEMENT PROFESSIONALS CPT-00966 Bladder Scan 16:48:49 OPERATIONS MANAGEMENT PROFESSIONALS
--- OUTSIDE RECORDS SUMMARY | 2017-04-12 09:33 | XMS REPORT | Clinical Summary ---
Author Author Admin, LAI Organization [facility] [employer] Address Unknown Phone Unavailable Allergies, Adverse Reactions, [...] 1 tablet twice a day CIPROFLOXACIN HCL 35382252760 No Longer Active Malick Moreira MD Active CEFTIN 500 MG ORAL TABS bid CEFUROXIME AXETIL 32442678545 No Longer Active Malick Moreira MD Active CARVEDILOL 12.5 MG ORAL TABS bid CARVEDILOL 42395165995 Active Malick Moreira MD Active CEFTIN 500 MG ORAL TABS bid CEFTIN 500 MG ORAL TABS 003632 CEFUROXIME AXETIL Inactive CIPRO 500 MG TABS 1 tablet twice a day CIPRO 500 MG TABS 185996 CIPROFLOXACIN HCL Inactive Vital Signs Date Name [...] negative Encounters Code Encounter Date Provider Facility CPT-68181 Level 3 Est. Patient 14:34:12 CDT Malick Moreira MD [facility] CPT-60155 Level 3 Est. Patient 08:00:19 CDT Malick Moreira MD [facility] CPT-81754 Level 3 Est. Patient 16:01:05 MARINE DESIGN ENGINEER Malick Moreira MD [facility] CPT-82543 Level 3 New Patient 16:48:49 MARINE DESIGN ENGINEER Malick Moreira MD [facility] Procedures Code Procedure Name Date Entry Date Standard Description CPT-86148 Urine Dip (Floor Use Only) 14:34:13 CDT CPT-70374 Insert non indwelling bld cath 08:00:20 CDT CPT-28757 Bladder Scan 08:00:20 CDT CPT-95429 Urine Dip (Floor Use Only) 16:01:16 MARINE DESIGN ENGINEER CPT-97578 Cystoscopy 16:01:06 MARINE DESIGN ENGINEER CPT-22045 Dil F ureth int 16:01:05 MARINE DESIGN ENGINEER CPT-92040 Urine Dip (Floor Use Only) 16:48:49 MARINE DESIGN ENGINEER CPT-41974 Bladder Scan 16:48:49 MARINE DESIGN ENGINEER
--- OUTSIDE RECORDS SUMMARY | 2017-04-12 09:33 | XMS REPORT | Clinical Summary ---
Author Author Admin, LAI Organization [facility] [employer] Address Unknown Phone Unavailable Allergies, Adverse Reactions, [...] 1 tablet twice a day CIPROFLOXACIN HCL 08634099837 No Longer Active Malick Moreira MD Active CEFTIN 500 MG ORAL TABS bid CEFUROXIME AXETIL 70528347420 No Longer Active Malick Moreira MD Active CARVEDILOL 12.5 MG ORAL TABS bid CARVEDILOL 80267714002 Active Malick Moreira MD Active CEFTIN 500 MG ORAL TABS bid CEFTIN 500 MG ORAL TABS 912222 CEFUROXIME AXETIL Inactive CIPRO 500 MG TABS 1 tablet twice a day CIPRO 500 MG TABS 672452 CIPROFLOXACIN HCL Inactive Vital Signs Date Name [...] negative Encounters Code Encounter Date Provider Facility CPT-53334 Level 3 Est. Patient 14:34:12 CDT Malick Moreira MD [facility] CPT-33891 Level 3 Est. Patient 08:00:19 CDT Malick Moreira MD [facility] CPT-17960 Level 3 Est. Patient 16:01:05 COMMAND CENTER OFFICER Malick Moreira MD [facility] CPT-40568 Level 3 New Patient 16:48:49 COMMAND CENTER OFFICER Malick Moreira MD [facility] Procedures Code Procedure Name Date Entry Date Standard Description CPT-79492 Urine Dip (Floor Use Only) 14:34:13 CDT CPT-39421 Insert non indwelling bld cath 08:00:20 CDT CPT-77930 Bladder Scan 08:00:20 CDT CPT-79464 Urine Dip (Floor Use Only) 16:01:16 COMMAND CENTER OFFICER CPT-29052 Cystoscopy 16:01:06 COMMAND CENTER OFFICER CPT-24401 Dil F ureth int 16:01:05 COMMAND CENTER OFFICER CPT-55767 Urine Dip (Floor Use Only) 16:48:49 COMMAND CENTER OFFICER CPT-24878 Bladder Scan 16:48:49 COMMAND CENTER OFFICER
--- OUTSIDE RECORDS SUMMARY | 2017-04-12 09:33 | XMS REPORT | Clinical Summary ---
Author Author Admin, LAI Organization [facility] [employer] Address Unknown Phone Unavailable Allergies, Adverse Reactions, [...] 1 tablet twice a day CIPROFLOXACIN HCL 23053258177 No Longer Active Malick Moreira MD Active CEFTIN 500 MG ORAL TABS bid CEFUROXIME AXETIL 63000841216 No Longer Active Malick Moreira MD Active CARVEDILOL 12.5 MG ORAL TABS bid CARVEDILOL 01402191653 Active Malick Moreira MD Active CEFTIN 500 MG ORAL TABS bid CEFTIN 500 MG ORAL TABS 211698 CEFUROXIME AXETIL Inactive CIPRO 500 MG TABS 1 tablet twice a day CIPRO 500 MG TABS 141284 CIPROFLOXACIN HCL Inactive Vital Signs Date Name [...] negative Encounters Code Encounter Date Provider Facility CPT-72372 Level 3 Est. Patient 16:01:05 PANTRY GOODS MAKER Malick Moreira MD [facility] CPT-15057 Level 3 New Patient 16:48:49 PANTRY GOODS MAKER Malick Moreira MD [facility] [place] Procedures Code Procedure Name Date Entry Date Standard Description CPT-60878 Urine Dip (Floor Use Only) 16:01:16 PANTRY GOODS MAKER CPT-08268 Cystoscopy 16:01:06 PANTRY GOODS MAKER CPT-03825 Dil F ureth int 16:01:05 PANTRY GOODS MAKER CPT-14949 Urine Dip (Floor Use Only) 16:48:49 PANTRY GOODS MAKER CPT-49107 Bladder Scan 16:48:49 PANTRY GOODS MAKER
--- OUTSIDE RECORDS SUMMARY | 2017-04-12 09:34 | XMS REPORT | Continuity of Care Document ---
Author Author [facility] Organization [facility] Address Unknown Phone Unavailable Allergies Active Description Code Type Severity Reaction Onset Reported/Identified Relationship to Patient Clinical Status Yes atorvastatin calcium [id number] Drug Allergy Unknown N/A 10/24/2014 Yes Isosorbide Mononitrate [id number] Drug Allergy Unknown N/A 10/24/2014 Yes pravastatin sodium [id number] Drug Allergy Unknown N/A 10/24/2014 Medications Problems Date Dx Coded Attending Type Code Diagnosis Diagnosed By Ot 272.4 Ot 414.00 10/24/2014 Ot V45.82 10/24/2014 Ot V57.89 11/02/2014 SREEDHAR MANRIQUEZ Ot 272.4 11/02/2014 SREEDHAR MANRIQUEZ K Ot 401.9 11/02/2014 SREEDHAR MANRIQUEZ K Ot 414.00 11/02/2014 SREEDHAR MANRIQUEZ K Ot 427.31 11/02/2014 SREEDHAR MANRIQUEZ K Ot 428.0 11/08/2014 SEREDHAR MANRIQUEZ K Ot 272.4 11/08/2014 SREEDHAR MANRIQUEZ K Ot 401.9 11/08/2014 JETT MANRIQUEZTH K Ot 414.00 11/08/2014 JETT MANRIQUEZTH K Ot 427.31 11/08/2014 SREEDHAR MANRIQUEZ K Ot 428.0 11/08/2014 SREEDHAR MANRIQUEZ K Ot 272.4 11/08/2014 JETT MANRIQUEZTH K Ot 401.9 11/08/2014 SREEDHAR MANRIQUEZ K Ot 414.00 11/08/2014 SREEDHAR MANRIQUEZ K Ot 427.31 11/08/2014 SREEDHAR MANRIQUEZ Ot 428.0 04/17/2015 CHOLO SPRAGUE ANGELA L Ot 920 04/17/2015 ANGELA BRANCH Ot 959.01 04/17/2015 ANGELA BRANCH Ot E000.8 04/17/2015 CHOLO [place] ANGELA L Ot E888.9 04/17/2015 CHOLO [place]UE ANGELA L Ot V58.61 09/29/2016 Ot 427.31 11/25/2016 Ot 401.9 HYPERTENSION NOS 11/25/2016 Ot 414.00 CORON ATHEROSCLER NOS TYPE VESSEL, NATIV 11/25/2016 Ot 427.31 ATRIAL FIBRILLATION 11/25/2016 Ot 397.0 TRICUSPID VALVE DISEASE 11/25/2016 Ot 401.9 HYPERTENSION NOS 11/25/2016 Ot 414.00 CORON ATHEROSCLER NOS TYPE VESSEL, NATIV 11/25/2016 Ot 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 NEC 11/25/2016 Ot 424.0 MITRAL VALVE DISORDER 11/25/2016 Ot 427.31 ATRIAL FIBRILLATION 11/25/2016 Ot 429.3 CARDIOMEGALY 11/26/2016 Ot E78.2 MIXED HYPERLIPIDEMIA 11/26/2016 Ot 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 WITH HEART FA 11/26/2016 Ot I25.10 ATHSCL HEART DISEASE OF [place] CORONARY 11/26/2016 Ot I48.0 PAROXYSMAL ATRIAL FIBRILLATION 11/26/2016 Ot I51.7 CARDIOMEGALY 12/03/2016 AMADA STOUT MD Ot I25.10 ATHSCL HEART DISEASE OF [place] CORONARY 12/04/2016 AMADA STOUT MD Ot E78.2 MIXED HYPERLIPIDEMIA 12/04/2016 AMADA STOUT MD Ot 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 WITH HEART FA 12/04/2016 AMADA STOUT MD Ot I25.10 ATHSCL HEART DISEASE OF [place] CORONARY 12/04/2016 AMADA STOUT MD Ot I48.0 PAROXYSMAL ATRIAL FIBRILLATION 12/04/2016 AMADA STOUT MD Ot I51.7 CARDIOMEGALY 12/06/2016 Ot E78.2 MIXED HYPERLIPIDEMIA 12/06/2016 Ot 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 WITH HEART FA 12/06/2016 Ot I25.10 ATHSCL HEART DISEASE OF [place] CORONARY 12/06/2016 Ot I48.0 PAROXYSMAL ATRIAL FIBRILLATION 12/06/2016 Ot I51.7 CARDIOMEGALY 12/11/2016 AMADA STOUT MD Ot E03.9 HYPOTHYROIDISM, UNSPECIFIED 12/11/2016 AMADA STOUT MD Ot E78.5 HYPERLIPIDEMIA, UNSPECIFIED 12/11/2016 AMADA STOUT MD Ot G47.33 OBSTRUCTIVE SLEEP APNEA (ADULT) (PEDIATR 12/11/2016 AMADA STOUT MD Ot I10 ESSENTIAL (PRIMARY) HYPERTENSION 12/11/2016 AMADA STOUT MD Ot I25.10 ATHSCL HEART DISEASE OF [place] CORONARY 12/11/2016 AMADA STOUT MD Ot I48.0 PAROXYSMAL ATRIAL FIBRILLATION 12/11/2016 AMADA STOUT MD Ot J44.9 CHRONIC OBSTRUCTIVE PULMONARY DISEASE, U 12/11/2016 AMADA STOUT MD Ot K21.9 GASTRO-ESOPHAGEAL REFLUX DISEASE WITHOUT 12/11/2016 AMADA STOUT MD Ot R94.39 ABNORMAL RESULT OF OTHER CARDIOVASCULAR 12/11/2016 AMADA STOUT MD Ot Z79.01 CUTTING DEPARTMENT SUPERVISOR (CURRENT) USE OF ANTICOAGULANT 12/11/2016 AMADA STOUT MD Ot Z79.899 OTHER CUTTING DEPARTMENT SUPERVISOR (CURRENT) DRUG THERAPY 12/11/2016 AMADA STOUT MD Ot Z95.5 PRESENCE OF CORONARY ANGIOPLASTY IMPLANT 12/16/2016 AMADA STOUT MD Ot E78.2 MIXED HYPERLIPIDEMIA 12/16/2016 AMADA STOUT MD Ot 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 WITH HEART FA 12/16/2016 AMADA STOUT MD Ot I25.10 ATHSCL HEART DISEASE OF [place] CORONARY 12/16/2016 AMADA STOUT MD Ot I48.0 PAROXYSMAL ATRIAL FIBRILLATION 12/16/2016 AMADA STOUT MD Ot I51.7 CARDIOMEGALY 12/23/2016 AMADA STOUT MD Ot E03.9 HYPOTHYROIDISM, UNSPECIFIED 12/23/2016 AMADA STOUT MD Ot E78.5 HYPERLIPIDEMIA, UNSPECIFIED 12/23/2016 AMADA STOUT MD Ot G47.33 OBSTRUCTIVE SLEEP APNEA (ADULT) (PEDIATR 12/23/2016 AMADA STOUT MD Ot I10 ESSENTIAL (PRIMARY) HYPERTENSION 12/23/2016 AMADA STOUT MD Ot I25.10 ATHSCL HEART DISEASE OF [place] CORONARY 12/23/2016 AMADA STOUT MD Ot I48.0 PAROXYSMAL ATRIAL FIBRILLATION 12/23/2016 AMADA STOUT MD, Ot J44.9 CHRONIC OBSTRUCTIVE PULMONARY DISEASE, U 12/23/2016 AMADA STOUT MD Ot K21.9 GASTRO-ESOPHAGEAL REFLUX DISEASE WITHOUT 12/23/2016 AMADA STOUT MD Ot R94.39 ABNORMAL RESULT OF OTHER CARDIOVASCULAR 12/23/2016 AMADA STOUT MD Ot Z79.01 CORRECTION (CURRENT) USE OF ANTICOAGULANT 12/23/2016 AMADA STOUT MD Ot Z79.899 OTHER CORRECTION (CURRENT) DRUG THERAPY 12/23/2016 AMADA STOUT MD Ot Z95.5 PRESENCE OF CORONARY ANGIOPLASTY IMPLANT 12/25/2016 AMADA STOUT MD Ot E03.9 HYPOTHYROIDISM, UNSPECIFIED 12/25/2016 AMADA STOUT MD Ot E78.5 HYPERLIPIDEMIA, UNSPECIFIED 12/25/2016 AMADA STOUT MD Ot G47.33 OBSTRUCTIVE SLEEP APNEA (ADULT) (PEDIATR 12/25/2016 AMADA STOUT MD Ot I10 ESSENTIAL (PRIMARY) HYPERTENSION 12/25/2016 AMADA STOUT MD Ot I25.10 ATHSCL HEART DISEASE OF [place] CORONARY 12/25/2016 AMADA STOUT MD Ot I48.0 PAROXYSMAL ATRIAL FIBRILLATION 12/25/2016 AMADA STOUT MD Ot J44.9 CHRONIC OBSTRUCTIVE PULMONARY DISEASE, U 12/25/2016 AMADA STOUT MD Ot K21.9 GASTRO-ESOPHAGEAL REFLUX DISEASE WITHOUT 12/25/2016 AMADA STOUT MD Ot R94.39 ABNORMAL RESULT OF OTHER CARDIOVASCULAR 12/25/2016 AMADA STOUT MD Ot Z79.01 CUTTING DEPARTMENT SUPERVISOR (CURRENT) USE OF ANTICOAGULANT 12/25/2016 AMADA STOUT MD Ot Z79.899 OTHER CORRECTION (CURRENT) DRUG THERAPY 12/25/2016 AMADA STOUT MD Ot Z95.5 PRESENCE OF CORONARY ANGIOPLASTY IMPLANT Procedures Results Test Result Range Complete urinalysis with reflex to culture - 12/11/16 07:07 Urine color determination YELLOW NRG Urine clarity determination CLEAR NRG Urine pH measurement by test strip 6.5 5 -9 Specific gravity of urine by test strip 1.010 1.016-1.022 Urine protein assay by test strip, semi-quantitative NEGATIVE NEGATIVE Urine glucose detection by automated test strip NEGATIVE NEGATIVE Erythrocytes detection in urine sediment by light microscopy 2+ NEGATIVE Urine ketones detection by automated test strip NEGATIVE NEGATIVE Urine nitrite detection by test strip NEGATIVE NEGATIVE Urine total bilirubin detection by test strip NEGATIVE NEGATIVE Urine urobilinogen measurement by automated test strip (mass/volume) NORMAL NORMAL Urine leukocyte esterase detection by dipstick 1+ NEGATIVE Automated urine sediment erythrocyte count by microscopy (number/high power field) [HPF] NRG Automated urine sediment leukocyte count by microscopy (number/high power field ) [HPF] NRG Bacteria detection in urine sediment by light microscopy NEGATIVE NRG Squamous epithelial cells detection in urine sediment by light microscopy 0-2 NRG Crystals detection in urine sediment by light microscopy NONE NRG Casts detection in urine sediment by light microscopy NONE NRG Mucus detection in urine sediment by light microscopy NEGATIVE NRG Complete urinalysis with reflex to culture NO NRG Automated blood complete blood count (hemogram) panel - 12/11/16 07:22 Blood leukocytes automated count (number/volume) 6.2 10*3/ uL 4.3-11.0 Blood erythrocytes automated count (number/volume) 4.42 10*6 /uL 4.35-5.85 Venous blood hemoglobin measurement (mass/volume) 13.7 g/dL 11.5-16.0 Blood hematocrit (volume fraction) 39 % 35-52 Automated erythrocyte mean corpuscular volume 88 [foz_us] 80-99 Automated erythrocyte mean corpuscular hemoglobin (mass per erythrocyte) 31 pg 25-34 Automated erythrocyte mean corpuscular hemoglobin concentration measurement ( mass/volume) 35 g/dL 32-36 Automated erythrocyte distribution width ratio 13.5 % 10.0-14.5 Automated blood platelet count (count/volume) 202 10*3/uL 130-400 Automated blood platelet mean volume measurement 10.4 [foz_ us] 7.4-10.4 PT panel in platelet poor plasma by coagulation assay - 12/11/16 07:22 Prothrombin time (PT) in platelet poor plasma by coagulation assay 15.1 s 12.2-14.7 INR in platelet poor plasma or blood by coagulation assay 1.2 0.8-1.4 Activated partial thromboplastin time (aPTT) in platelet poor plasma bycoagulation assay - 12/11/16 07:22 Activated partial thromboplastin time (aPTT) in platelet poor plasma bycoagulation assay 40 s 24-35 Comprehensive metabolic panel - 12/11/16 07:22 Serum or plasma sodium measurement (moles/volume) 140 mmol/ L 135-145 Serum or plasma potassium measurement (moles/volume) 3.0 mmol/L 3.6-5.0 Serum or plasma chloride measurement (moles/volume) 99 mmol/ L 98-107 Carbon dioxide 28 mmol/L 21-32 Serum or plasma anion gap determination (moles/volume) 13 mmol/L 5-14 Serum or plasma urea nitrogen measurement (mass/volume) 17 mg/dL 7-18 Serum or plasma creatinine measurement (mass/volume) 1.09 mg /dL 0.60-1.30 Serum or plasma urea nitrogen/creatinine mass ratio 16 NRG Serum or plasma creatinine measurement with calculation of estimated glomerular filtration rate 49 NRG Serum or plasma glucose measurement (mass/volume) 98 mg/dL 70-105 Serum or plasma calcium measurement (mass/volume) 9.8 mg/dL 8.5-10.1 Serum or plasma total bilirubin measurement (mass/volume) 0.6 mg/dL 0.1-1.0 Serum or plasma alkaline phosphatase measurement (enzymatic activity/volume) 63 U/L 40-136 Serum or plasma aspartate aminotransferase measurement (enzymatic activity/ volume) 16 U/L 5-34 Serum or plasma alanine aminotransferase measurement (enzymatic activity/volume ) 13 U/L 0-55 Serum or plasma protein measurement (mass/volume) 6.8 g/dL 6.4-8.2 Serum or plasma albumin measurement (mass/volume) 4.1 g/dL 3.2-4.5 Lipid 1996 panel - 12/11/16 07:22 Serum or plasma triglyceride measurement (mass/volume) 111 mg/dL <150 Serum or plasma cholesterol measurement (mass/volume) 181 mg /dL < 200 Serum or plasma cholesterol in HDL measurement (mass/volume) 59 mg/dL 40-60 Cholesterol in LDL [mass/volume] in serum or plasma by direct assay 98 mg/dL 1-129 Serum or plasma cholesterol in VLDL measurement (mass/volume) 22 mg/dL 5-40 Methicillin resistant Staphylococcus aureus (MRSA) screening culture - 07:22 Methicillin resistant Staphylococcus aureus (MRSA) screening culture NEG NRG Encounters ACCT No. Visit Date/Time Discharge Status Pt. Type Provider Facility Loc./Unit Complaint [id number] 12/11/2016 06:44:00 2016 13:05:00 DIS Outpatient AMADA STOUT MD [facility] CATH ABNORMAL STRESS TEST,HTN,HLP [id number] 04/17/2015 15:54:00 2014 18:58:00 DIS Emergency ANGELA BRANCH [facility] ER [id number] 10/24/2014 07:44:00 2014 23:59:59 CLS Outpatient SREEDHAR MANRIQUEZ [facility] CARD [id number] 10/18/2014 08:37:00 2014 23:59:59 CLS Outpatient SREEDHAR MANRIQUEZ [facility] CARD [id number] 05/10/2014 18:13:00 2013 20:57:00 DIS Emergency [id number] 02/14/2014 10:25:00 2013 23:59:59 CLS Outpatient [id number] 10/06/2013 08:59:00 2013 23:59:59 CLS Outpatient [id number] 12/04/2016 07:59:00 ACT Outpatient AMADA STOUT MD [facility] CARD CAD,HTN,HLP [id number] 11/25/2016 07:50:00 Document Registration [id number] 11/25/2016 07:47:00 Document Registration [id number] 03/25/2012 08:00:00 Document Registration [id number] 10/31/2011 13:11:00 Document Registration [id number] 10/30/2011 07:04:00 Document Registration [id number] 09/25/2007 09:30:00 Document Registration [id number] 07/22/2007 08:19:00 Document Registration
--- OUTSIDE RECORDS SUMMARY | 2017-04-12 09:34 | XMS REPORT | Clinical Summary ---
Author Author Admin, [facility] Organization [facility] [employer] Address Unknown Phone Unavailable Allergies, Adverse Reactions, [...] 1 tablet twice a day CIPROFLOXACIN HCL [id number] No Longer Active Malick Moreira MD Active CEFTIN 500 MG ORAL TABS bid CEFUROXIME AXETIL [id number] No Longer Active Malick Moreira MD Active CARVEDILOL 12.5 MG ORAL TABS bid CARVEDILOL 00425710049 Active Malick Moreira MD Active CEFTIN 500 MG ORAL TABS bid CEFTIN 500 MG ORAL TABS 952471 CEFUROXIME AXETIL Inactive CIPRO 500 MG TABS 1 tablet twice a day CIPRO 500 MG TABS 768460 CIPROFLOXACIN HCL Inactive Vital Signs Date Name [...] negative Encounters Code Encounter Date Provider Facility CPT-61011 Level 3 Est. Patient 08:00:19 CDT Malick Moreira MD [facility] CPT-21451 Level 3 Est. Patient 16:01:05 WATER RESOURCE ENGINEER Malick Moreira MD [facility] [place] CPT-27051 Level 3 New Patient 16:48:49 WATER RESOURCE ENGINEER Malick Moreira MD [facility] Procedures Code Procedure Name Date Entry Date Standard Description CPT-43512 Insert non indwelling bld cath 08:00:20 CDT CPT-33429 Bladder Scan 08:00:20 CDT CPT-40204 Urine Dip (Floor Use Only) 16:01:16 WATER RESOURCE ENGINEER CPT-46233 Cystoscopy 16:01:06 WATER RESOURCE ENGINEER CPT-84243 Dil F ureth int 16:01:05 WATER RESOURCE ENGINEER CPT-65786 Urine Dip (Floor Use Only) 16:48:49 WATER RESOURCE ENGINEER CPT-43820 Bladder Scan 16:48:49 WATER RESOURCE ENGINEER
--- NOTE | 2017-04-12 10:18 | ED Lower Extremity ---
General Chief Complaint: Lower Extremity Stated Complaint: FALL - R LEG SWELLING Nursing Triage Note: PT REPORTS TRIPPING AND FALLING ON FRIDAY. SHE HAS MODERATE SWELLING AND BRUISING TO R LOWER EXTREMITY FROM KNEE TO FOOT. SHE IS C/O PAIN TO AFFECTED AREA. Nursing Sepsis Screen: No Definite Risk Source: patient, family Exam Limitations: no limitations History of Present Illness Time seen by provider: 10:18 Initial Comments This 76-year-old white female presents with a complaint of progressive pain and swelling in her right leg over the past 4 days after falling. The patient relates that she tripped at home over a tarp and fell sustaining blunt trauma to the midportion of her right leg between her ankle and knee. The patient is complaining of progressive pain over the area with associated redness swelling and chills. The patient believes that the swelling was made worse with her Xarelto which she takes for her chronic atrial fibrillation prescribed by Dr. Tabor. Allergies and Home Medications Allergies Coded Allergies: Isosorbide Mononitrate (Verified Allergy, Unknown, 10/24/14) atorvastatin calcium (Verified Allergy, Unknown, 10/24/14) pravastatin sodium (Verified Allergy, Unknown, 10/24/14) Home Medications Acetaminophen with Codeine 1 Each Tablet, 1 EACH PO DAILY, (Reported) Carvedilol 12.5 Mg Tablet, 12.5 MG PO BID, (Reported) Gabapentin 600 Mg Tab.er.24h, 600 MG PO HS, (Reported) Hydrochlorothiazide 25 Mg Tablet, 1 EACH PO DAILY, (Reported) Levothyroxine Sodium 50 Mcg Tablet, 50 MCG PO DAILY, (Reported) Meloxicam 15 Mg Tablet, 1 EACH PO DAILY, (Reported) Pantoprazole Sodium 40 Mg Tablet.dr, 1 TAB PO DAILY, #30 (Reported) Pravastatin Sodium 40 Mg Tablet, 40 MG PO, (Reported) Rivaroxaban 20 Mg Tablet, 20 MG PO, (Reported) RESTART 04/09/12 Constitutional: chills, No fever EENTM: no symptoms reported Respiratory: No cough, No short of breath Cardiovascular: No chest pain, No palpitations, No syncope Gastrointestinal: No abdominal pain, No nausea, No vomiting Genitourinary: No dysuria, No frequency : No Musculoskeletal: No back pain, No joint pain, No other Skin: other (there is a contusion noted over the anterior aspect of the juncture of the middle and distal thirds of the right leg anteriorly. There is associated surrounding erythema and tenderness suggestive of a cellulitis. Similar ecchymosis is noted over the right thigh.) Psychiatric/Neurological: No Symptoms Reported Past Ccxvups-Mvczha-Ykgjqd Hx Patient Social History Alcohol Use: Denies Use Recreational Drug Use: No Smoking Status: Never a Smoker 2nd Hand Smoke Exposure: No Recent Foreign Travel: No Contact w/Someone Who Travel: No Recent Infectious Disease Expo: No Recent Hopitalizations: No Immunizations Up To Date Tetanus Booster (TDap): Unknown Date of Pneumonia Vaccine: Nov 28, 2011 Date of Influenza Vaccine: Jul 02, 2016 Surgeries HX Surgeries: Yes (cardiac stents, cath) Surgeries: Appendectomy, Gallbladder Respiratory Hx Respiratory Disorders: No Cardiovascular Hx Cardiac Disorders: Yes Cardiac Disorders: Atrial Fibrillation Neurological Hx Neurological Disorders: No Genitourinary Hx Genitourinary Disorders: No Gastrointestinal Hx Gastrointestinal Disorders: No Cancer Hx Cancer: Yes (gall bladder, skin cancer) Reviewed Nursing Assessment Reviewed/Agree w Nursing PMH: Yes Family Medical History Significant Family History: No Pertinent Family Hx Physical Exam Vital Signs Vital Sign - Last 12Hours 04/12/17 09:50 Temp 97.9 Pulse 72 Resp 18 B/P (MAP) 140/84 Pulse Ox 96 O2 Delivery Room Air Capillary Refill : Less Than 3 Seconds General Appearance: WD/WN, no apparent distress HEENT: normal ENT inspection Neck: normal inspection Cardiovascular: irregularly irregular Respiratory: chest non-tender, lungs clear Gastrointestinal: normal bowel sounds, non tender, soft Legs: right leg other (as noted above there is a contused area over the anterior aspect of the right leg with associated erythema and swelling and tenderness to the surrounding soft tissues.) Neurologic/Psychiatric: no motor/sensory deficits, alert, normal mood/affect Skin: other (as noted on the patient's right leg exam.) Progress/Results/Core Measures Results/Orders Lab Results Laboratory Tests Test 04/12/17 10:31 Range/Units White Blood Count 5.4 4.3-11.0 10^3/uL Red Blood Count 3.92 L 4.35-5.85 10^6/uL Hemoglobin 11.8 11.5-16.0 G/DL Hematocrit 35 35-52 % Mean Corpuscular Volume 90 80-99 FL Mean Corpuscular Hemoglobin 30 25-34 PG Mean Corpuscular Hemoglobin Concent 34 32-36 G/DL Red Cell Distribution Width 13.9 10.0-14.5 % Platelet Count 165 130-400 10^3/uL Mean Platelet Volume 11.0 H 7.4-10.4 FL Neutrophils (%) (Auto) 68 42-75 % Lymphocytes (%) (Auto) 17 12-44 % Monocytes (%) (Auto) 12 0-12 % Eosinophils (%) (Auto) 2 0-10 % Basophils (%) (Auto) 1 0-10 % Neutrophils # (Auto) 3.7 1.8-7.8 X 10^3 Lymphocytes # (Auto) 0.9 L 1.0-4.0 X 10^3 Monocytes # (Auto) 0.7 0.0-1.0 X 10^3 Eosinophils # (Auto) 0.1 0.0-0.3 10^3/uL Basophils # (Auto) 0.0 0.0-0.1 10^3/uL Sodium Level 140 135-145 MMOL/L Potassium Level 3.0 L 3.6-5.0 MMOL/L Chloride Level 99 98-107 MMOL/L Carbon Dioxide Level 28 21-32 MMOL/L Anion Gap 13 5-14 MMOL/L Blood Urea Nitrogen 18 7-18 MG/DL Creatinine 1.10 0.60-1.30 MG/DL Estimat Glomerular Filtration Rate 48 BUN/Creatinine Ratio 16 Glucose Level 128 H 70-105 MG/DL Calcium Level 9.8 8.5-10.1 MG/DL Total Bilirubin 1.3 H 0.1-1.0 MG/DL Aspartate Amino Transf (AST/SGOT) 15 5-34 U/L Alanine Aminotransferase (ALT/SGPT) 11 0-55 U/L Alkaline Phosphatase 56 40-136 U/L C-Reactive Protein High Sensitivity 2.12 H 0.00-0.50 MG/DL Total Protein 7.1 6.4-8.2 GM/DL Albumin 4.1 3.2-4.5 GM/DL My Orders Orders - JESÚS YANCEY MD Hs C Reactive Protein (04/12/17 10:15) Comprehensive Metabolic Panel (04/12/17 10:15) Cbc With Automated Diff (04/12/17 10:15) Us Venous Lower Ext Rt (04/12/17 10:15) Cefazolin Injection (Ancef Injection) (04/12/17 12:15) Potassium Cl 10meq/50ml Ivpb (Kcl 10 Meq (04/12/17 12:15) Saline Lock/Iv-Start (04/12/17 12:33) Medications Given in ED Current Medications Medications Dose Ordered Sig/Jo-Ann Route Start Time Stop Time Status Last Admin Dose Admin Cefazolin Sodium 1000 mg/Sodium Chloride 50 ml @ 100 mls/hr ONCE ONCE IV 04/12/17 12:15 04/12/17 12:44 DC 04/12/17 12:32 100 MLS/HR Vital Signs/I&O Vital Sign - Last 12Hours 04/12/17 09:50 Temp 97.9 Pulse 72 Resp 18 B/P (MAP) 140/84 Pulse Ox 96 O2 Delivery Room Air Blood Pressure Mean: 102 Progress Note : Time: 11:24 Progress Note CRP slightly elevated. WBC and ultrasound were both normal. I think the presentation is most consistent with a cellulitis secondary to the contusion to the leg. I ordered 2 g of Rocephin IV. All visible with the hospitalist concerning a possible observation admission. Departure Communication Time/Spoke to Admitting Phy: 13:[address] Gomez Impression Impression: Primary Impression: Cellulitis of right leg Disposition: ADMITTED INPATIENT Condition: Improved Departure-Patient Inst. Referrals: CINDY ISRAEL MD (PCP/Family) Primary Care Physician JESÚS YANCEY MD Apr 12, 2017 10:18
[2017-04-12 10:39] LABS: BASOPHILS % (AUTO) 1 % (0-10); EOSINOPHILS # (AUTO) 0.1 10^3/uL (0.0-0.3); EOSINOPHILS % (AUTO) 2 % (0-10); LYMPHOCYTES # (AUTO) 0.9 X 10^3 (1.0-4.0); LYMPHOCYTES % (AUTO) 17 % (12-44); MEAN CORPUSCULAR HEMOGLOBIN 30 PG (25-34); MEAN CORPUSCULAR HGB CONC 34 G/DL (32-36); MEAN CORPUSCULAR VOLUME 90 FL (80-99); MONOCYTES # (AUTO) 0.7 X 10^3 (0.0-1.0); MONOCYTES % (AUTO) 12 % (0-12); NEUTROPHILS # (AUTO) 3.7 X 10^3 (1.8-7.8); NEUTROPHILS % (AUTO) 68 % (42-75); PLATELET COUNT 165 10^3/uL (130-400); RED BLOOD COUNT 3.92 10^6/uL (4.35-5.85); RED CELL DISTRIBUTION WIDTH 13.9 % (10.0-14.5); WHITE BLOOD COUNT 5.4 10^3/uL (4.3-11.0)
[2017-04-12 11:00] LABS: ALBUMIN 4.1 GM/DL (3.2-4.5); BILIRUBIN,TOTAL 1.3 MG/DL (0.1-1.0); CALCIUM 9.8 MG/DL (8.5-10.1); CREATININE SERUM 1.1 MG/DL (0.60-1.30); TOTAL PROTEIN 7.1 GM/DL (6.4-8.2); hs C REACTIVE PROTEIN 2.12 MG/DL (0.00-0.50)
--- NOTE | 2017-04-12 11:32 | Diagnostic Imaging Report ---
INDICATION: Right leg swelling with fall. Tender. TECHNIQUE: Grayscale with color-flow and Doppler waveform evaluation of the right lower extremity deep venous system. CORRELATION STUDY: None FINDINGS: Color and grayscale sonographic images demonstrate no intraluminal defect within the visualized portion of the common femoral, superficial femoral and/or popliteal veins to suggest thrombus formation. These vessels demonstrate normal response to compression and augmentation. No soft tissue fluid collection. IMPRESSION: 1. Negative for deep venous thrombosis of the right leg. Dictated by: Dictated on workstation # [id number]
[2017-04-12] MEDS ORDERED: ceFAZolin INJECTION 1,000 MG in NS (IVPB) 50 ML IV ONE (12:15)
[2017-04-12] MEDS: POTASSIUM CL 10MEQ/50ML IVPB 50 ML IV SCH ×2 (12:59→14:49)
--- OUTSIDE RECORDS SUMMARY | 2017-04-12 13:12 | XMS REPORT | Continuity of Care Document ---
Author Author [facility] Organization [facility] Address Unknown Phone Unavailable Allergies Active Description Code Type Severity Reaction Onset Reported/Identified Relationship to Patient Clinical Status Yes atorvastatin calcium [id number] Drug Allergy Unknown N/A 10/24/2014 Yes Isosorbide Mononitrate [id number] Drug Allergy Unknown N/A 10/24/2014 Yes pravastatin sodium [id number] Drug Allergy Unknown N/A 10/24/2014 Medications Problems Date Dx Coded Attending Type Code Diagnosis Diagnosed By Ot 272.4 Ot 414.00 10/24/2014 Ot V45.82 10/24/2014 Ot V57.89 11/02/2014 SREEDHAR MANRIQUEZ Ot 272.4 11/02/2014 SREEDHAR MANRIQUEZ K Ot 401.9 11/02/2014 SREEDHAR MANRIQUEZ K Ot 414.00 11/02/2014 SREEDHAR MANRIQUEZ K Ot 427.31 11/02/2014 SREEDHAR MANRIQUEZ K Ot 428.0 11/08/2014 SREEDHAR MANRIQUEZ K Ot 272.4 11/08/2014 SREEDHAR MANRIQUEZ [...] 11/26/2016 Ot I25.10 ATHSCL HEART DISEASE OF [place] CORONARY 11/26/2016 Ot I48.0 PAROXYSMAL ATRIAL FIBRILLATION 11/26/2016 Ot I51.7 CARDIOMEGALY 12/03/2016 AMADA STOUT MD Ot I25.10 ATHSCL HEART DISEASE OF [place] CORONARY 12/04/2016 AMADA STOUT MD Ot E78.2 MIXED HYPERLIPIDEMIA 12/04/2016 AMADA STOUT MD Ot 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 WITH HEART FA 12/04/2016 AMADA STOUT MD Ot I25.10 ATHSCL HEART DISEASE OF [place] CORONARY 12/04/2016 AMADA STOUT MD Ot I48.0 PAROXYSMAL ATRIAL FIBRILLATION 12/04/2016 AMADA STOUT MD Ot I51.7 CARDIOMEGALY 12/06/2016 Ot E78.2 MIXED HYPERLIPIDEMIA 12/06/2016 Ot 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 WITH HEART FA 12/06/2016 Ot I25.10 ATHSCL HEART DISEASE OF [place] CORONARY 12/06/2016 Ot I48.0 PAROXYSMAL ATRIAL FIBRILLATION 12/06/2016 Ot I51.7 CARDIOMEGALY 12/11/2016 AMADA STOUT MD Ot E03.9 HYPOTHYROIDISM, UNSPECIFIED 12/11/2016 AMADA STUOT MD Ot E78.5 HYPERLIPIDEMIA, UNSPECIFIED 12/11/2016 AMADA STOUT MD Ot G47.33 OBSTRUCTIVE SLEEP APNEA (ADULT) (PEDIATR 12/11/2016 AMADA STOUT MD Ot I10 ESSENTIAL (PRIMARY) HYPERTENSION 12/11/2016 AMADA STOUT MD Ot I25.10 ATHSCL HEART DISEASE OF [place] CORONARY 12/11/2016 AMADA STOUT MD Ot I48.0 PAROXYSMAL ATRIAL FIBRILLATION 12/11/2016 AMADA STOUT MD Ot J44.9 CHRONIC OBSTRUCTIVE PULMONARY DISEASE, U 12/11/2016 AMADA STOUT MD Ot K21.9 GASTRO-ESOPHAGEAL REFLUX DISEASE WITHOUT 12/11/2016 AMADA STOUT MD Ot R94.39 ABNORMAL RESULT OF OTHER CARDIOVASCULAR 12/11/2016 AMADA STOUT MD Ot Z79.01 CEMENT SIDE LASTER (CURRENT) USE OF ANTICOAGULANT 12/11/2016 AMADA STOUT MD Ot Z79.899 OTHER CEMENT SIDE LASTER (CURRENT) DRUG THERAPY 12/11/2016 AMADA STOUT MD Ot Z95.5 PRESENCE OF CORONARY ANGIOPLASTY IMPLANT 12/16/2016 AMADA STOUT MD Ot E78.2 MIXED HYPERLIPIDEMIA 12/16/2016 AMADA STOUT MD Ot 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 WITH HEART FA 12/16/2016 AMADA STOUT MD Ot I25.10 ATHSCL HEART DISEASE OF [place] CORONARY 12/16/2016 AMADA STOUT MD Ot I48.0 PAROXYSMAL ATRIAL FIBRILLATION 12/16/2016 AMADA STOUT MD Ot I51.7 CARDIOMEGALY 12/23/2016 AMADA STOUT MD Ot E03.9 HYPOTHYROIDISM, UNSPECIFIED 12/23/2016 AMADA STOUT MD Ot E78.5 HYPERLIPIDEMIA, UNSPECIFIED 12/23/2016 AMADA STOUT MD Ot G47.33 OBSTRUCTIVE SLEEP APNEA (ADULT) (PEDIATR 12/23/2016 AMADA STOUT MD Ot I10 ESSENTIAL (PRIMARY) HYPERTENSION 12/23/2016 AMADA STOUT MD Ot I25.10 ATHSCL HEART DISEASE OF [place] CORONARY 12/23/2016 AMADA STOUT MD Ot I48.0 [...] Z79.899 OTHER CORRECTION (CURRENT) DRUG THERAPY 12/23/2016 AMDAA STOUT MD Ot Z95.5 PRESENCE OF CORONARY ANGIOPLASTY IMPLANT 12/25/2016 AMADA STOUT MD Ot E03.9 HYPOTHYROIDISM, UNSPECIFIED 12/25/2016 AMADA STOUT MD Ot E78.5 HYPERLIPIDEMIA, UNSPECIFIED 12/25/2016 AMADA STOUT MD Ot G47.33 OBSTRUCTIVE SLEEP APNEA (ADULT) (PEDIATR 12/25/2016 AMADA STOUT MD Ot I10 ESSENTIAL (PRIMARY) HYPERTENSION 12/25/2016 AMADA STOUT MD Ot I25.10 ATHSCL HEART DISEASE OF [place] CORONARY 12/25/2016 AMADA STOUT MD Ot I48.0 PAROXYSMAL ATRIAL FIBRILLATION 12/25/2016 AMADA STOUT MD Ot J44.9 CHRONIC OBSTRUCTIVE PULMONARY DISEASE, U 12/25/2016 AMADA STOUT MD Ot K21.9 GASTRO-ESOPHAGEAL REFLUX DISEASE WITHOUT 12/25/2016 AMADA STOUT MD Ot R94.39 ABNORMAL RESULT OF OTHER CARDIOVASCULAR 12/25/2016 AMADA STOUT MD Ot Z79.01 CEMENT SIDE LASTER (CURRENT) USE OF ANTICOAGULANT 12/25/2016 AMADA STOUT [...] Status Pt. Type Provider Facility Loc./Unit Complaint [id number] 12/11/2016 06:44:00 2016 13:05:00 DIS Outpatient AMADA STOUT MD [facility] CATH ABNORMAL STRESS TEST,HTN,HLP [id number] 04/17/2015 15:54:00 2014 18:58:00 DIS Emergency ANGELA BRANCH [facility] ER [id number] 10/24/2014 07:44:00 2014 23:59:59 CLS Outpatient SREEDHAR MANRIQUEZ [facility] CARD [id number] 10/18/2014 08:37:00 2014 23:59:59 CLS Outpatient SREEDHAR MANRIQUEZ [facility] CARD [id number] 05/10/2014 18:13:00 2013 20:57:00 DIS Emergency [id number] 02/14/2014 10:25:00 2013 23:59:59 CLS Outpatient [id number] 10/06/2013 08:59:00 2013 23:59:59 CLS Outpatient [id number] 12/04/2016 07:59:00 ACT Outpatient AMADA STOUT MD [facility] CARD CAD,HTN,HLP [id number] 11/25/2016 07:50:00 Document Registration [id number] 11/25/2016 07:47:00 Document Registration [id number] 03/25/2012 08:00:00 Document Registration [id number] 10/31/2011 13:11:00 Document Registration [id number] 10/30/2011 07:04:00 Document Registration [id number] 09/25/2007 09:30:00 Document Registration [id number] 07/22/2007 08:19:00 Document Registration
[2017-04-12] MEDS ORDERED: NS IV 1000 ML 1,000 ML IV ONE (13:23)
--- NOTE | 2017-04-12 13:52 | History & Physical-Hospitalist ---
HPI History of Present Illness: HPI/Chief Complaint this is a 76-year-old white female who had tripped 4 days prior to this presentation injuring her right lower leg. She now presents with chills last night increased pain in the right leg and evidence of cellulitis. Her white count is normal she is afebrile however that the leg is very swollen and red and angry and hot Source: patient Exam Limitations: no limitations Date Seen 04/12/17 Time Seen by Provider: 12:30 Attending Physician Elvie Gomez MD PCP Kristen Israel MD Referring Physician Date of Admission Apr 12, 2017 at 13:04 Home Medications & Allergies Home Medications Reviewed patient Home Medication Reconciliation Form Allergies Allergies Coded Allergies Isosorbide Mononitrate (Verified Allergy, Unknown, 10/24/14) atorvastatin calcium (Verified Allergy, Unknown, 10/24/14) pravastatin sodium (Verified Allergy, Unknown, 10/24/14) Past Uogyqhz-Dtlyav-Vizznu Hx Patient Social History Marrital Status: Employed/Student: retired Alcohol Use: Denies Use Recreational Drug Use: No Smoking Status: Never a Smoker 2nd Hand Smoke Exposure: No Recent Foreign Travel: No Contact w/other who traveled: No Recent Hopitalizations: No Recent Infectious Disease Expo: No Immunizations Up To Date Tetanus Booster (TDap): Unknown Date of Pneumonia Vaccine: Nov 28, 2011 Date of Influenza Vaccine: Jul 02, 2016 Surgeries HX Surgeries: Yes (cardiac stents, cath) Surgeries: Appendectomy, Gallbladder Respiratory Hx Respiratory Disorders: No Cardiovascular Hx Cardiovascular Disorders: Yes Cardiac Disorders: Atrial Fibrillation Neurological Hx Neurological Disorders: No Genitourinary Hx Genitourinary Disorders: No Gastrointestinal Hx Gastrointestinal Disorders: No Musculoskeletal Musculoskeletal Disorders: Arthritis Endocrine Hx Endocrine Disorders: No HEENT HX ENT Disorders: Yes HEENT Disorders: Cataract Cancer Hx Cancer: Yes (gall bladder, skin cancer) Psychosocial Hx Psychiatric Problems: No Reviewed Nursing Assessment Reviewed/Agree w Nursing PMH: Yes Family Medical History Significant Family History: No Pertinent Family Hx Review of Systems Constitutional: see HPI EENTM: no symptoms reported Respiratory: no symptoms reported Cardiovascular: no symptoms reported Gastrointestinal: constipation Genitourinary: no symptoms reported Musculoskeletal: muscle pain Skin: no symptoms reported Psychiatric/Neurological: No Symptoms Reported Physical Exam Physical Exam Vital Signs Vital Sign - Last 12Hours 04/12/17 09:50 Temp 97.9 Pulse 72 Resp 18 B/P (MAP) 140/84 Pulse Ox 96 O2 Delivery Room Air Capillary Refill : Less Than 3 Seconds General Appearance: No Apparent Distress, WD/WN HEENT: Normal ENT Inspection Neck: Normal Inspection Respiratory: Lungs Clear Cardiovascular: Irregularly Irregular Gastrointestinal: Normal Bowel Sounds, Soft Back: Normal Inspection Extremity: Inflammation, Pedal Edema Neurologic/Psychiatric: Alert, Oriented x3, No Motor/Sensory Deficits Skin: Normal Color, Warm/Dry Lymphatic: No Adenopathy Results Results/Procedures Lab Laboratory Tests 04/12/17 10:31 Assessment/Plan Admission Diagnosis 1. Right lower leg cellulitis 2. Chronic atrial fibrillation on Xarelto 3. Hypokalemia plan to admit for IV antibiotics bed rest elevation of the leg continue her anticoagulation and replace her potassium Copy Copies To 1: KRISTEN ISRAEL MD, KATHLEEN M MD Apr 12, 2017 13:52
[2017-04-12] MEDS ORDERED: ACETAMINOPHEN 325 MG TABLET/CAPLET (TYLENOL) PO PRN ×2 (14:15)
[2017-04-12] MEDS ORDERED: NS IV 1000 ML 1,000 ML IV SCH (14:15)
[2017-04-12] MEDS ORDERED: FURO-125 PO (14:27)
[2017-04-12] MEDS ORDERED: POTA10TA10 PO (14:29)
[2017-04-12] MEDS ORDERED: ACET-2267 PO (14:33)
[2017-04-12] MEDS ORDERED: PATIENT MAY USE OWN MEDS, ALL MC SCH (14:45)
[2017-04-12] MEDS: NS IV 1000 ML 1,000 ML IV SCH (14:48)
[2017-04-12] MEDS ORDERED: FUROSEMIDE 20 MG (LASIX) TAB PO PRN ×2 (15:30→15:45)
[2017-04-12] MEDS ORDERED: GABAPENTIN 600 MG PO SCH (15:30)
[2017-04-12 16:27] VITALS: BP 118/75
[2017-04-12] MEDS: KCL 10 MEQ TAB (MICRO K) PO SCH (17:05)
[2017-04-12] MEDS: LEVOTHYROXINE 50 MCG (LEVOTHROID) TAB PO SCH (17:09)
[2017-04-12] MEDS: PANTOPRAZOLE 40 MG (PROTONIX) TAB PO SCH (17:09)
[2017-04-12] MEDS ORDERED: RIVAROXABAN 20 MG TABLET (XARELTO) PO SCH (18:00)
[2017-04-12] MEDS: ACETAMINOPHEN 500 MG TAB (TYLENOL) PO PRN (18:20)
[2017-04-12 20:00] VITALS: BP 132/59
[2017-04-12] MEDS ORDERED: SIMvastatin 40 MG (ZOCOR) TAB PO SCH (21:00)
[2017-04-12] MEDS ORDERED: KCL 20 MEQ TAB (K-DUR) PO SCH ×2 (21:00)
[2017-04-12] MEDS ORDERED: APAP 300 MG/CODEINE 30 MG (TYLENOL #3) TAB PO SCH (21:00)
[2017-04-12] MEDS: CARVEDILOL 12.5 MG (COREG) TABLET PO SCH (21:11)
[2017-04-12] MEDS: ceFAZolin 1 GM/NS 50 ML IVPB IV SCH ×2 (21:33)
[2017-04-12] MEDS ORDERED: ceFAZolin INJECTION 1,000 MG in NS (IVPB) 50 ML IV SCH (22:00)
[2017-04-13] VITALS: BP_SYST 128; BP_SYST 98; BP_DIAS 53; BP_DIAS 85
[2017-04-13] MEDS: ACETAMINOPHEN 500 MG TAB (TYLENOL) PO PRN (00:43)
[2017-04-13 04:00] VITALS: BP 119/56
[2017-04-13 05:00] LABS: RED BLOOD COUNT 3.19 10^6/uL (4.35-5.85); RED CELL DISTRIBUTION WIDTH 13.8 % (10.0-14.5); WHITE BLOOD COUNT 5.8 10^3/uL (4.3-11.0)
[2017-04-13 05:16] LABS: CALCIUM 8.7 MG/DL (8.5-10.1); CREATININE SERUM 0.97 MG/DL (0.60-1.30); POTASSIUM 3.4 MMOL/L (3.6-5.0)
[2017-04-13] MEDS: KCL 10 MEQ TAB (MICRO K) PO SCH (06:13)
[2017-04-13] MEDS: ceFAZolin 1 GM/NS 50 ML IVPB IV SCH ×2 (06:14)
[2017-04-13 08:00] VITALS: BP 132/61
[2017-04-13] MEDS ORDERED: HYDROCHLOROTHIAZIDE 25 MG (HCTZ) TAB PO SCH (09:00)
[2017-04-13] MEDS: NS IV 1000 ML 1,000 ML IV SCH (10:40)
[2017-04-13] MEDS: PANTOPRAZOLE 40 MG (PROTONIX) TAB PO SCH (10:41)
[2017-04-13] MEDS: LEVOTHYROXINE 50 MCG (LEVOTHROID) TAB PO SCH (10:41)
[2017-04-13] MEDS: CARVEDILOL 12.5 MG (COREG) TABLET PO SCH (10:41)
[2017-04-13 12:41] VITALS: BP 114/70
--- NOTE | 2017-04-13 13:20 | Progress Note-Hospitalist ---
Subjective HPI/CC On Admission Date Seen by Provider: Apr 13, 2017 Time Seen by Provider: 12:15 this is a 76-year-old white female who had tripped 4 days prior to this presentation injuring her right lower leg. She now presents with chills last night increased pain in the right leg and evidence of cellulitis. Her white count is normal she is afebrile however that the leg is very swollen and red and angry and hot Subjective/Events-last exam patient's leg is less painful than it was yesterday. She has had no further fever or chills. Her white count has remained normal. She is anxious to go home in [facility] Review of Systems Musculoskeletal: leg pain Objective Exam Vital Signs Vital Sign - Last 12Hours 04/12/17 09:50 Temp 97.9 Pulse 72 Resp 18 B/P (MAP) 140/84 Pulse Ox 96 O2 Delivery Room Air Capillary Refill : Less Than 3 Seconds General Appearance: No Apparent Distress HEENT: Normal ENT Inspection Respiratory: Lungs Clear, Normal Breath Sounds, No Accessory Muscle Use, No Respiratory Distress Cardiovascular: Regular Rate, Rhythm, No Gallop, No Murmur Gastrointestinal: Non Tender, Soft Rectal: Deferred Extremity: Calf Tenderness, Inflammation, Swelling Neurologic/Psychiatric: Alert, Oriented x3, No Motor/Sensory Deficits, Normal Mood/Affect Results/Procedures Lab Laboratory Tests 04/13/17 03:55 Assessment/Plan Assessment and Plan Assess & Plan/Chief Complaint 1. Cellulitis improving will discharge today on Keflex 504 times a day for 10 days with elevation of the right leg and warm moist packs 2. Hypokalemia improved 3. Chronic atrial fibrillation DENG ALDANA MD Apr 13, 2017 13:20
[2017-04-13] MEDS ORDERED: CEPH-507 PO (13:23)
--- NOTE | 2017-04-13 13:28 | Discharge Summary-Hospitalist ---
Diagnosis/Chief Complaint Date of Admission Apr 12, 2017 at 13:04 Date of Discharge April 13, 2017 Discharge Date: Apr 13, 2017 Discharge Time: 14:00 Admission Diagnosis 1. Right lower leg cellulitis 2. Chronic atrial fibrillation on Xarelto 3. Hypokalemia plan to admit for IV antibiotics bed rest elevation of the leg continue her anticoagulation and replace her potassium Discharge Diagnosis 1. Cellulitis improving will discharge today on Keflex 504 times a day for 10 days with elevation of the right leg and warm moist packs 2. Hypokalemia improved 3. Chronic atrial fibrillation Reason Hospital Visit/Course this is a 76-year-old white female who had tripped 4 days prior to this presentation injuring her right lower leg. She now presents with chills last night increased pain in the right leg and evidence of cellulitis. Her white count is normal she is afebrile however that the leg is very swollen and red and angry and hot. Discharge Summary Procedures right venous Doppler Discharge Physical Examination Allergies: Coded Allergies: Isosorbide Mononitrate (Verified Allergy, Unknown, 10/24/14) atorvastatin calcium (Verified Allergy, Unknown, 10/24/14) pravastatin sodium (Verified Allergy, Unknown, 10/24/14) Vitals & I&Os Vital Signs Date Time Temp Pulse Resp B/P (MAP) Pulse Ox O2 Delivery O2 Flow Rate FiO2 04/13/17 12:41 98.6 70 20 114/70 96 Room Air General Appearance: Alert, Oriented X3, Cooperative HEENT: Atraumatic Respiratory: Clear to Auscultation Cardiovascular: Other (irregular) Abdominal: Normal Bowel Sounds, Soft Extremities: Other (edematous erythematous and tender) Neuro: Normal Speech, Strength at 5/5 X4 Ext Psych/Mental Status: Mental Status NL Hospital Course patient was admitted after a negative venous Doppler was obtained. The cultures are negative. Patient was started on Ancef with improvement of the leg and she is being discharged home on Keflex. She has remained afebrile and white count has been within normal limits Labs (last 24 hrs) Laboratory Tests 04/13/17 03:55: White Blood Count 5.8, Red Blood Count 3.19L, Hemoglobin 9.5L, Hematocrit 29L, Mean Corpuscular Volume 91, Mean Corpuscular Hemoglobin 30, Mean Corpuscular Hemoglobin Concent 33, Red Cell Distribution Width 13.8, Platelet Count 142, Mean Platelet Volume 12.0H, Sodium Level 140, Potassium Level 3.4L, Chloride Level 105, Carbon Dioxide Level 26, Anion Gap 9, Blood Urea Nitrogen 14, Creatinine 0.97, Estimat Glomerular Filtration Rate 56, BUN/Creatinine Ratio 14 , Glucose Level 102, Calcium Level 8.7 Discharge Home Medications: Active Scripts Active Keflex (Cephalexin) 500 Mg Capsule 500 Mg PO ACHS Tylenol Extra Strength (Acetaminophen) 500 Mg Tablet 500-1,000 Mg PO TID PRN Potassium Chloride 10 Meq Tablet.er 10 Meq PO DAILY Lasix (Furosemide) 20 Mg Tablet 20 Mg PO DAILY PRN Reported Tylenol with Codeine #3 Tablet (Acetaminophen with Codeine) 1 Each Tablet 1 Each PO HS Gralise (Gabapentin) 600 Mg Tab.er.24h 600 Mg PO DAILY AT 1800 Pravastatin Sodium 40 Mg Tablet 40 Mg PO Hydrochlorothiazide 25 Mg Tablet 1 Each PO DAILY Meloxicam 15 Mg Tablet 1 Each PO DAILY Protonix (Pantoprazole Sodium) 40 Mg Tablet.dr 1 Tab PO DAILY Xarelto Tablet (Rivaroxaban) 20 Mg Tablet 20 Mg PO DAILY AT 1800 RESTART 04/09/12 Carvedilol 12.5 Mg Tablet 12.5 Mg PO BID Levothyroxine 50 Mcg Tab (Levothyroxine Sodium) 50 Mcg Tablet 50 Mcg PO DAILY Condition at discharge stable Instructions to patient/family Please see electonic discharge instructions given to patient. Clinical Quality Measures DVT/VTE Risk/Contraindication: Risk Factor Score Per Nursin RFS Level Per Nursing on Admit: 4+=Very High Contraindications-Mechi: Other *list below* Other: cellulitis of calf Copy Copies To 1: CINDY ISRAEL MD, KATHLEEN M MD Apr 13, 2017 13:28
[2017-04-13 14:00] VITALS: BP 114/70
[2017-04-13] MEDS ORDERED: GABAPENTIN 600 MG (NEURONTIN) TAB PO SCH (18:00)
[2017-04-13] MEDS ORDERED: SIMvastatin 40 MG (ZOCOR) TAB PO SCH (21:00)
== END 2017-04-13 13:21 | disposition home or self-care (01) ==
LOC: EDUNIT# 09:26 → ER 09:28 → UNDOADMOB 13:04 → 4TH 13:04 → ENPENDDIS 04-13 14:00 → UNDODISOB 04-13 14:00
PROVIDERS: ADMIT Internal Medicine; ATTEND Internal Medicine
DX: L03.116 Cellulitis of left lower limb (principal); S80.12XA Contusion of left lower leg, initial encounter; I48.2 Chronic atrial fibrillation; E87.6 Hypokalemia; Z79.01 Long term (current) use of anticoagulants; Z79.899 Other long term (current) drug therapy; Z95.5 Presence of coronary angioplasty implant and graft; W01.0XXA Fall on same level from slipping, tripping and stumbling without subsequent striking against object, initial encounter; Y92.009 Unspecified place in unspecified non-institutional (private) residence as the place of occurrence of the external cause; Y99.8 Other external cause status
CPT/HCPCS: 36415; 80048; 80053; 85025; 85027; 86141; G0378

== ENCOUNTER → 2017-10-02 | Outpatient (CLI) | payer MEDICARE, OTHER ==
[~2017-10-02] MED LIST changes: +ACET-2267 PO; +CEPH-507 PO; +FURO-125 PO; +POTA10TA10 PO
--- NOTE | 2017-10-02 10:14 | Diagnostic Imaging Report ---
INDICATION: Stage III chronic renal disease. FINDINGS: Right kidney measures 10.3 x 3.5 x 4 cm. Left kidney measures 10.7 x 4.7 x 4.9 cm. There is mild thinning of the renal cortex. There is no hydronephrosis. No calculi or masses are demonstrated. Bladder does show moderate amount of urine present. Bladder wall is smooth. No ureteral jets were demonstrated. IMPRESSION: 1. No evidence of renal obstruction. 2. No evidence of urine retention in the bladder. Dictated by: Dictated on workstation # [id number]
== END ==
LOC: RAD 08:37
DX: N18.3 Chronic kidney disease, stage 3 (moderate) (principal); R60.0 Localized edema; I48.91 Unspecified atrial fibrillation; D64.9 Anemia, unspecified
CPT/HCPCS: 76770

== ENCOUNTER → 2017-10-08 | Outpatient (CLI) | payer MEDICARE, OTHER ==
--- NOTE | 2017-10-09 12:43 | Diagnostic Imaging Report ---
EXAMINATION: Digital mammogram bilateral screening with CAD. INDICATION: Screening. COMPARISON: 10/06/2013, 07/14/2012, and 07/16/2011. PERSONAL HISTORY: At this time, there are no current complaints. FINDINGS: The fibroglandular tissue in both breasts is heterogeneously dense. This does limit the sensitivity of this exam. Overall, there does not appear to have been any significant change when compared to the prior study. No primary or secondary sign of malignancy is noted. IMPRESSION: There is no radiographic evidence for malignancy. ACR BI-RADS Category 2: Benign findings. Result letter will be mailed to the patient. Note: At least 10% of breast cancer is not imaged by mammography. Dictated by: Dictated on workstation # [id number]
== END ==
LOC: RAD 09:35
PROVIDERS: ATTEND Family Medicine
DX: Z12.31 Encounter for screening mammogram for malignant neoplasm of breast (principal)
CPT/HCPCS: 77067

== ENCOUNTER → 2018-07-06 | Outpatient (CLI) | payer MEDICARE, OTHER | LOC: CARD 09:48 | PROVIDERS: ATTEND Internal Medicine Cardiovascular Disease | DX: I48.0 Paroxysmal atrial fibrillation (principal); I25.10 Atherosclerotic heart disease of native coronary artery without angina pectoris; I10 Essential (primary) hypertension; E78.2 Mixed hyperlipidemia; R00.2 Palpitations; R07.9 Chest pain, unspecified; I08.1 Rheumatic disorders of both mitral and tricuspid valves | CPT/HCPCS: 93306 ==

== ENCOUNTER → 2018-08-28 | Outpatient (CLI) | payer MEDICARE, OTHER ==
--- NOTE | 2018-08-28 10:18 | Diagnostic Imaging Report ---
PROCEDURE: US Abdomen, limited. TECHNIQUE: Multiple realtime grayscale images were obtained over the abdomen in various projections. INDICATION: Right inguinal fullness and pain. FINDINGS: Sonographic interrogation of the right groin was performed. Imaging was performed with and without Valsalva maneuver. There appears to be a defect in the right groin with some movement of tissue, likely fat extending through a hernia. No definite bowel loop is seen. No fluid collection is identified. IMPRESSION: Findings suspicious for a right groin hernia. This contents of a hernia are difficult to ascertain whether this is fat versus bowel. No other abnormality is seen. Dictated by: Dictated on workstation # [id number]
--- NOTE | 2018-08-28 15:38 | Diagnostic Imaging Report ---
PROCEDURE: MRI left joint lower extremity without contrast. TECHNIQUE: Multiplanar, multisequence nxu-fqrqhtmi-pniombve MRI of the left lower extremity was accomplished. INDICATION: Medial left knee pain. FINDINGS: There are no previous MRI examinations available for comparison. The plain film examination of the left knee performed on 02/14/2014 did note a chondroid lesion in the distal femur. This lesion measured 2.8 x 4 cm and was felt to relate to either a bone infarct or an enchondroma. On this study, that lesion is not included on this exam. If further study is desired, then repeat plain film exam would be recommended. On the proton dense sagittal series, the anterior and posterior cruciate ligaments appear to be intact as do the quadriceps and infrapatellar tendons. The medial collateral ligament, fibular collateral ligament, biceps femoris tendon, and iliotibial band show no evidence for a tear, but there is mild soft tissue edema about the medial collateral ligament. This does suggest a grade 1 strain. The proton dense fat-saturated sagittal series also shows that the mid portion of the medial meniscus has been torn and has partially degenerated. There is also a partial tear of the posterior horn of the medial meniscus. The injury to the medial meniscus has led to advanced degenerative disease involving the medial compartment of the knee joint. The articular surface of both the medial femoral condyle and the medial proximal tibia is thinned and irregular, and there are small areas of altered signal in the opposing surfaces of the media femoral condyle and medial proximal tibia on the STIR series. These areas of altered signal most likely reflect bone edema from repetitive trauma. The lateral compartment and the patellofemoral space show only mild degenerative disease. IMPRESSION: 1. The mid portion and posterior horn of the medial meniscus have been torn and partially degenerated. The injury to the medial meniscus has led to advanced degenerative disease of the medial compartment of the knee joint. There is also mild edema/inflammation about the MCL, although the MCL seems to be intact. 2. The lateral meniscus disc and the other major ligaments and tendons show no sign of an acute injury. 3. There is a small joint effusion present and a 1.5 x 7.3 cm Duque's cyst. Dictated by: Dictated on workstation # [id number]
== END ==
LOC: RAD 08:46
PROVIDERS: ATTEND Family Medicine
DX: S83.242A Other tear of medial meniscus, current injury, left knee, initial encounter (principal); M17.12 Unilateral primary osteoarthritis, left knee; M71.22 Synovial cyst of popliteal space [Baker], left knee; R10.31 Right lower quadrant pain
CPT/HCPCS: 73721; 76705

== ENCOUNTER → 2018-11-02 | Outpatient (CLI) | payer MEDICARE, OTHER ==
[2018-11-02 15:31] LABS: ABSOLUTE RETIC # 35 10e9/L (24-90); BASOPHILS % (AUTO) 1 % (0-10); EOSINOPHILS # (AUTO) 0.1 10^3/uL (0.0-0.3); EOSINOPHILS % (AUTO) 2 % (0-10); HEMATOCRIT 40 % (35-52); LYMPHOCYTES # (AUTO) 1.8 X 10^3 (1.0-4.0); LYMPHOCYTES % (AUTO) 50 % (12-44); MEAN CORPUSCULAR HEMOGLOBIN 31 PG (25-34); MEAN CORPUSCULAR HGB CONC 33 G/DL (32-36); MEAN CORPUSCULAR VOLUME 93 FL (80-99); MEAN PLATELET VOLUME 12.6 FL (7.4-10.4); MONOCYTES # (AUTO) 0.5 X 10^3 (0.0-1.0); MONOCYTES % (AUTO) 13 % (0-12); NEUTROPHILS # (AUTO) 1.2 X 10^3 (1.8-7.8); NEUTROPHILS % (AUTO) 33 % (42-75); PLATELET COUNT 158 10^3/uL (130-400); RETICULOCYTE % 0.83 % (0.50-2.40); WHITE BLOOD COUNT 3.6 10^3/uL (4.3-11.0)
[2018-11-02 15:59] LABS: BASOPHILS % (MANUAL) 2 %; BURR CELLS SLIGHT; CRENATED RBC MODERATE; ELLIPT/OVALOCYTES SLIGHT; EOSINOPHILS % (MANUAL) 3 %; LYMPHOCYTES % (MANUAL) 45 %; MONOCYTES % (MANUAL) 9 %; NEUTROPHILS % (MANUAL) 32 %; REACTIVE LYMPHOCYTES 9 %
== END ==
LOC: LABNPT 15:20
PROVIDERS: ATTEND Nurse Practitioner Family
DX: D72.819 Decreased white blood cell count, unspecified (principal); D69.6 Thrombocytopenia, unspecified
CPT/HCPCS: 85007; 85027; 85045

== ENCOUNTER 2019-01-31 12:55 | Emergency (ER) | payer MEDICARE, OTHER ==
[~2019-01-31] VITALS: Ht 170.2 cm; Wt 72.3 kg
--- OUTSIDE RECORDS SUMMARY | 2019-01-31 13:00 | XMS REPORT | Clinical Summary ---
Author Author Admin, LAI Organization [facility] Address Unknown Phone Unavailable Allergies, Adverse [...] Status Provider Patient Instruction CIPRO 500 MG ORAL TABLET 1 tablet two times daily CIPROFLOXACIN HCL 72291029599 No Longer Active Anahy Francisco Active CIPRO 500 MG ORAL TABLET 1 tablet twice a day CIPROFLOXACIN HCL 84204594809 No Longer Active Malick Moreira MD Active CEFTIN 500 MG ORAL TABLET bid CEFUROXIME AXETIL 33531128506 No Longer Active Malick Moreira MD Active CARVEDILOL 12.5 MG ORAL TABLET bid CARVEDILOL 20056985724 Active Malick Moreira MD Active CEFTIN 500 MG ORAL TABLET bid CEFTIN 500 MG ORAL TABLET 637806 CEFUROXIME AXETIL Inactive CIPRO 500 MG ORAL TABLET 1 tablet twice a day CIPRO 500 MG ORAL TABLET 004046 CIPROFLOXACIN HCL Inactive CIPRO 500 MG ORAL TABLET 1 tablet two times daily CIPRO 500 MG ORAL TABLET 409348 CIPROFLOXACIN HCL Inactive Encounters Code Encounter Date Provider Facility CPT-00979 Level 3 Est. Patient 14:18:16 CDT Malick Moreira MD [facility] CPT-06319 Level 3 Est. Patient 14:34:12 CDT Malick Moreira MD [facility] CPT-19465 Level 3 Est. Patient 08:00:19 CDT Malick Moreira MD [facility] CPT-25339 Level 3 Est. Patient 16:01:05 PLANOGRAMMER Malick Moreira MD [facility] CPT-16454 Level 3 New Patient 16:48:49 PLANOGRAMMER Malick Moreira MD [facility] Procedures Code Procedure Name Date Entry Date Standard Description CPT-00915 Urine Dip (Floor Use Only) 14:18:17 CDT CPT-04981 Bladder Scan 14:18:17 CDT CPT-03098 Urine Dip (Floor Use Only) 14:34:13 CDT CPT-09234 Insert non indwelling bld cath 08:00:20 CDT CPT-52489 Bladder Scan 08:00:20 CDT CPT-51751 Urine Dip (Floor Use Only) 16:01:16 PLANOGRAMMER CPT-37081 Cystoscopy 16:01:06 PLANOGRAMMER CPT-14765 Dil F ureth int 16:01:05 PLANOGRAMMER CPT-09782 Urine Dip (Floor Use Only) 16:48:49 PLANOGRAMMER CPT-98380 Bladder Scan 16:48:49 PLANOGRAMMER
--- OUTSIDE RECORDS SUMMARY | 2019-01-31 13:00 | XMS REPORT ---
Author Author ARIANE GÓMEZ [facility] Address [address] [place] [address] Care Team Providers Care Dining Services Director Name Role Phone ARIANE GÓMEZ Unavailable PROBLEMS Unknown Problems ALLERGIES No Information ENCOUNTERS Encounter Location Date Diagnosis [facility] [address] [facility] [place] [address] [id number] [place] [address] Mar, Encounter for immunization Z23 IMMUNIZATIONS Vaccine Route Administration Date Status TDAP (BOOSTRIX) IM Intramuscular April 04, 2017 Administered SOCIAL HISTORY Never Assessed REASON FOR VISIT Tetanus Vx. MEMO Gruber. PLAN OF CARE VITAL SIGNS MEDICATIONS Unknown Medications RESULTS No Results PROCEDURES Procedure Date Ordered Result Body Site TDAP (BOOSTRIX) April 04, 2017 SINGLE IMMUNIZATION ADMIN April 04, 2017 INSTRUCTIONS MEDICATIONS ADMINISTERED No Known Medications
--- OUTSIDE RECORDS SUMMARY | 2019-01-31 13:00 | XMS REPORT ---
Author Author SHARON NATH [facility] Address [address] [place] [address] Care Team Providers Care Director Corporate Name Role Phone SHARON NATH Unavailable PROBLEMS Unknown Problems ALLERGIES No Known Allergies ENCOUNTERS Encounter Location Date Diagnosis [facility] [address] [facility] [id number] [address] January, Acute non-recurrent frontal sinusitis J01.10 [facility] [address] [facility] [id number], [place] [address] Mar, Encounter for immunization Z23 IMMUNIZATIONS Vaccine Route Administration Date Status SOLUMEDROL (UP TO 125 MG) IM Intramuscular February 26, 2018 Administered SOCIAL HISTORY Never Assessed REASON FOR VISIT productive cough that has yellow tinged sputum. congestion since friday. last noc was running a fever. [email or web address] PLAN OF CARE Activity Details Follow Up prn Reason: VITAL SIGNS Height 67.5 in 2018-02-26 Weight 140.2 lbs 2018-02-26 Temperature 97.3 degrees Fahrenheit 2018-02-26 Heart Rate 88 bpm 2018-02-26 Respiratory Rate 20 2018-02-26 BMI 21.63 kg/m2 2018-02-26 Blood pressure systolic 132 mmHg 2018-02-26 Blood pressure diastolic 80 mmHg 2018-02-26 MEDICATIONS Medication Instructions Dosage Frequency Start Date End Date Duration Status Levothyroxine Sodium 50 MCG Orally Once a day 1 tablet on an empty stomach in the morning 24h Active Pantoprazole Sodium 40 MG Orally Once a day 1 tablet 24h Active Zithromax Z-Hitesh 250 MG Orally Once a day 2 tablets on the first day, then 1 tablet daily for 4 days 24h January, Feb, 5 day(s) Active Carvedilol 12.5 MG Active Gralise 600 MG Orally Once a day 1 tablet with the evening meal 24h Active Simvastatin 40 MG Orally Once a day 1 tablet in the evening 24h Active Xarelto 20 MG Orally Once a day 1 tablet with food 24h Active Flonase 50 MCG/ACT Nasally twice a day 1 spray in each nostril 12h January, 07 days Active RESULTS No Results PROCEDURES Procedure Date Ordered Result Body Site [facility] VISIT ESTABLISHED PATIENT February 26, 2018 THER/PROPH/DIAG INJ, SC/IM February 26, 2018 SOLUMEDROL (UP TO 125 MG) February 26, 2018 INSTRUCTIONS MEDICATIONS ADMINISTERED No Known Medications MEDICAL (GENERAL) HISTORY Type Description Date Medical History Chronic A-fib Medical History Stage III Renal Failure Medical History Neuropathy Medical History HTN Surgical History open gallbladder 1989 Surgical History appendectomy et right ovarian cystectomy 1951 Surgical History SAMMIE with LSO 1979 Surgical History 2 stents in heart Hospitalization History Post Op
--- OUTSIDE RECORDS SUMMARY | 2019-01-31 13:00 | XMS REPORT | Clinical Summary ---
Author Author Admin, QIE Organization [facility] Address Unknown Phone Unavailable Allergies, Adverse [...] 1 tablet two times daily CIPROFLOXACIN HCL 85244823634 No Longer Active Anahy Francisco Active CIPRO 500 MG ORAL TABLET 1 tablet twice a day CIPROFLOXACIN HCL 62515889485 No Longer Active Malick Moreira MD Active CEFTIN 500 MG ORAL TABLET bid CEFUROXIME AXETIL 23255286441 No Longer Active Malick Moreira MD Active CARVEDILOL 12.5 MG ORAL TABLET bid CARVEDILOL 42825379717 Active Malick Moreira MD Active CEFTIN 500 MG ORAL TABLET bid CEFTIN 500 MG ORAL TABLET 971155 CEFUROXIME AXETIL Inactive CIPRO 500 MG ORAL TABLET 1 tablet twice a day CIPRO 500 MG ORAL TABLET 989070 CIPROFLOXACIN HCL Inactive CIPRO 500 MG ORAL TABLET 1 tablet two times daily CIPRO 500 MG ORAL TABLET 534918 CIPROFLOXACIN HCL Inactive Encounters Code Encounter Date Provider Facility CPT-46241 Level 3 Est. Patient 15:31:16 LABORATORY COURIER Malick Moreira MD [facility] CPT-21966 Level 3 Est. Patient 14:18:16 CDT Malick Moreira MD [facility] CPT-07065 Level 3 Est. Patient 14:34:12 CDT Malick Moreira MD [facility] CPT-27971 Level 3 Est. Patient 08:00:19 CDT Malick Moreira MD [facility] CPT-37943 Level 3 Est. Patient 16:01:05 LABORATORY COURIER Malick Moreira MD [facility] CPT-29489 Level 3 New Patient 16:48:49 LABORATORY COURIER Malick Moreira MD [facility] Procedures Code Procedure Name Date Entry Date Standard Description CPT-11343 Urine Dip (Floor Use Only) 14:18:17 CDT CPT-01278 Bladder Scan 14:18:17 CDT CPT-84416 Urine Dip (Floor Use Only) 14:34:13 CDT CPT-24225 Insert non indwelling bld cath 08:00:20 CDT CPT-42105 Bladder Scan 08:00:20 CDT CPT-88781 Urine Dip (Floor Use Only) 16:01:16 LABORATORY COURIER CPT-22199 Cystoscopy 16:01:06 LABORATORY COURIER CPT-02568 Dil F ureth int 16:01:05 LABORATORY COURIER CPT-61015 Urine Dip (Floor Use Only) 16:48:49 LABORATORY COURIER CPT-88439 Bladder Scan 16:48:49 LABORATORY COURIER
--- OUTSIDE RECORDS SUMMARY | 2019-01-31 13:01 | XMS REPORT | Clinical Summary ---
Author Author Admin, QIE Organization [facility] Address Unknown [...] 1 tablet two times daily CIPROFLOXACIN HCL 22297700116 No Longer Active Anahy Francisco Active CIPRO 500 MG ORAL TABLET 1 tablet twice a day CIPROFLOXACIN HCL 59696019627 No Longer Active Malick Moreira MD Active CEFTIN 500 MG ORAL TABLET bid CEFUROXIME AXETIL 93117547912 No Longer Active Malick Moreira MD Active CARVEDILOL 12.5 MG ORAL TABLET bid CARVEDILOL 79744705125 Active Malick Moreira MD Active CEFTIN 500 MG ORAL TABLET bid CEFTIN 500 MG ORAL TABLET 385109 CEFUROXIME AXETIL Inactive CIPRO 500 MG ORAL TABLET 1 tablet twice a day CIPRO 500 MG ORAL TABLET 370383 CIPROFLOXACIN HCL Inactive CIPRO 500 MG ORAL TABLET 1 tablet two times daily CIPRO 500 MG ORAL TABLET 978409 CIPROFLOXACIN HCL Inactive Encounters Code Encounter Date Provider Facility CPT-83154 Level 3 Est. Patient 15:31:16 CHASSIS WIRER Malick Moreira MD [facility] CPT-93673 Level 3 Est. Patient 14:18:16 CDT Malick Moreira MD [facility] CPT-23823 Level 3 Est. Patient 14:34:12 CDT Malick Moreira MD [facility] CPT-49515 Level 3 Est. Patient 08:00:19 CDT Malick Moreira MD [facility] CPT-43001 Level 3 Est. Patient 16:01:05 CHASSIS WIRER Malick Moreira MD [facility] CPT-89852 Level 3 New Patient 16:48:49 CHASSIS WIRER Malick Moreira MD [facility] Procedures Code Procedure Name Date Entry Date Standard Description CPT-81158 Urine Dip (Floor Use Only) 14:18:17 CDT CPT-72618 Bladder Scan 14:18:17 CDT CPT-87423 Urine Dip (Floor Use Only) 14:34:13 CDT CPT-83473 Insert non indwelling bld cath 08:00:20 CDT CPT-03758 Bladder Scan 08:00:20 CDT CPT-24989 Urine Dip (Floor Use Only) 16:01:16 CHASSIS WIRER CPT-85296 Cystoscopy 16:01:06 CHASSIS WIRER CPT-71648 Dil F ureth int 16:01:05 CHASSIS WIRER CPT-54560 Urine Dip (Floor Use Only) 16:48:49 CHASSIS WIRER CPT-63929 Bladder Scan 16:48:49 CHASSIS WIRER
--- OUTSIDE RECORDS SUMMARY | 2019-01-31 13:01 | XMS REPORT | Clinical Summary ---
Author Author Admin, QIE Organization [facility] Address Unknown Phone Unavailable Allergies, Adverse Reactions, [...] 1 tablet two times daily CIPROFLOXACIN HCL 02622647793 No Longer Active Anahy Francisco Active CIPRO 500 MG ORAL TABLET 1 tablet twice a day CIPROFLOXACIN HCL 28891413172 No Longer Active Malick Moreira MD Active CEFTIN 500 MG ORAL TABLET bid CEFUROXIME AXETIL 08661428341 No Longer Active Malick Moreira MD Active CARVEDILOL 12.5 MG ORAL TABLET bid CARVEDILOL 08961197944 Active Malick Moreira MD Active CEFTIN 500 MG ORAL TABLET bid CEFTIN 500 MG ORAL TABLET 367333 CEFUROXIME AXETIL Inactive CIPRO 500 MG ORAL TABLET 1 tablet twice a day CIPRO 500 MG ORAL TABLET 731856 CIPROFLOXACIN HCL Inactive CIPRO 500 MG ORAL TABLET 1 tablet two times daily CIPRO 500 MG ORAL TABLET 829854 CIPROFLOXACIN HCL Inactive Encounters Code Encounter Date Provider Facility CPT-51783 Level 3 Est. Patient 15:31:16 SPECIAL EVENTS ASSISTANT Malick Moreira MD [facility] CPT-34623 Level 3 Est. Patient 14:18:16 CDT Malick Moreira MD [facility]-84978 Level 3 Est. Patient 14:34:12 CDT Malick Moreira MD [facility]-86910 Level 3 Est. Patient 08:00:19 CDT Malick Moreira MD [facility]-71758 Level 3 Est. Patient 16:01:05 SPECIAL EVENTS ASSISTANT Malick Moreira MD [facility] CPT-28146 Level 3 New Patient 16:48:49 SPECIAL EVENTS ASSISTANT Malick Moreira MD [facility] Procedures Code Procedure Name Date Entry Date Standard Description CPT-87668 Urine Dip (Floor Use Only) 14:18:17 CDT CPT-63340 Bladder Scan 14:18:17 CDT CPT-19089 Urine Dip (Floor Use Only) 14:34:13 CDT CPT-05564 Insert non indwelling bld cath 08:00:20 CDT CPT-30554 Bladder Scan 08:00:20 CDT CPT-12028 Urine Dip (Floor Use Only) 16:01:16 SPECIAL EVENTS ASSISTANT CPT-96140 Cystoscopy 16:01:06 SPECIAL EVENTS ASSISTANT CPT-79305 Dil F ureth int 16:01:05 SPECIAL EVENTS ASSISTANT CPT-07070 Urine Dip (Floor Use Only) 16:48:49 SPECIAL EVENTS ASSISTANT CPT-96229 Bladder Scan 16:48:49 SPECIAL EVENTS ASSISTANT
--- OUTSIDE RECORDS SUMMARY | 2019-01-31 13:02 | XMS REPORT | Clinical Summary ---
Author Author Admin, LAI Organization [facility] Address Unknown Phone Unavailable Allergies, [...] 1 tablet two times daily CIPROFLOXACIN HCL 64167346523 No Longer Active Anahy Francisco Active CIPRO 500 MG ORAL TABLET 1 tablet twice a day CIPROFLOXACIN HCL 34300407654 No Longer Active Malick Moreira MD Active CEFTIN 500 MG ORAL TABLET bid CEFUROXIME AXETIL 73919948686 No Longer Active Malick Moreira MD Active CARVEDILOL 12.5 MG ORAL TABLET bid CARVEDILOL 71979314087 Active Malick Moreira MD Active CEFTIN 500 MG ORAL TABLET bid CEFTIN 500 MG ORAL TABLET 313445 CEFUROXIME AXETIL Inactive CIPRO 500 MG ORAL TABLET 1 tablet twice a day CIPRO 500 MG ORAL TABLET 761245 CIPROFLOXACIN HCL Inactive CIPRO 500 MG ORAL TABLET 1 tablet two times daily CIPRO 500 MG ORAL TABLET 140941 CIPROFLOXACIN HCL Inactive Encounters Code Encounter Date Provider Facility CPT-33622 Level 3 Est. Patient 14:18:16 CDT Malick Moreira MD [facility] CPT-51674 Level 3 Est. Patient 14:34:12 CDT Malick Moreira MD [facility] CPT-29350 Level 3 Est. Patient 08:00:19 CDT Malick Moreira MD [facility] CPT-16817 Level 3 Est. Patient 16:01:05 YACHT RIGGER Malick Moreira MD [facility] CPT-13783 Level 3 New Patient 16:48:49 YACHT RIGGER Malick Moreira MD [facility] Procedures Code Procedure Name Date Entry Date Standard Description CPT-16184 Urine Dip (Floor Use Only) 14:18:17 CDT CPT-65384 Bladder Scan 14:18:17 CDT CPT-17677 Urine Dip (Floor Use Only) 14:34:13 CDT CPT-43267 Insert non indwelling bld cath 08:00:20 CDT CPT-57298 Bladder Scan 08:00:20 CDT CPT-03968 Urine Dip (Floor Use Only) 16:01:16 YACHT RIGGER CPT-50796 Cystoscopy 16:01:06 YACHT RIGGER CPT-49853 Dil F ureth int 16:01:05 YACHT RIGGER CPT-39951 Urine Dip (Floor Use Only) 16:48:49 YACHT RIGGER CPT-97794 Bladder Scan 16:48:49 YACHT RIGGER
--- OUTSIDE RECORDS SUMMARY | 2019-01-31 13:02 | XMS REPORT | Clinical Summary ---
Author Author Admin, LAI Organization [facility] Address Unknown Phone Unavailable Allergies, Adverse [...] Other and unspecified hyperlipidemia Hypothyroidism 244.9 Active Malcik Moreira MD Unspecified hypothyroidism U T I-Recurrent [...] 1 tablet two times daily CIPROFLOXACIN HCL 99487011395 No Longer Active Anahy Francisco Active CIPRO 500 MG ORAL TABLET 1 tablet twice a day CIPROFLOXACIN HCL 66297555989 No Longer Active Malick Moreira MD Active CEFTIN 500 MG ORAL TABLET bid CEFUROXIME AXETIL 02404318567 No Longer Active Malick Moreira MD Active CARVEDILOL 12.5 MG ORAL TABLET bid CARVEDILOL 56394791032 Active Malick Moreira MD Active CEFTIN 500 MG ORAL TABLET bid CEFTIN 500 MG ORAL TABLET 187304 CEFUROXIME AXETIL Inactive CIPRO 500 MG ORAL TABLET 1 tablet twice a day CIPRO 500 MG ORAL TABLET 241608 CIPROFLOXACIN HCL Inactive CIPRO 500 MG ORAL TABLET 1 tablet two times daily CIPRO 500 MG ORAL TABLET 437159 CIPROFLOXACIN HCL Inactive Encounters Code Encounter Date Provider Facility CPT-51798 Level 3 Est. Patient 15:31:16 LINOTYPER Malick Moreira MD [facility] CPT-53987 Level 3 Est. Patient 14:18:16 CDT Malick Moreira MD [facility] CPT-28712 Level 3 Est. Patient 14:34:12 CDT Malick Moreira MD [facility] CPT-42069 Level 3 Est. Patient 08:00:19 CDT Malick Moreira MD [facility] CPT-85442 Level 3 Est. Patient 16:01:05 LINOTYPER Malick Moreira MD [facility] CPT-43333 Level 3 New Patient 16:48:49 LINOTYPER Malick Moreira MD [facility] Procedures Code Procedure Name Date Entry Date Standard Description CPT-07988 Urine Dip (Floor Use Only) 14:18:17 CDT CPT-77306 Bladder Scan 14:18:17 CDT CPT-87664 Urine Dip (Floor Use Only) 14:34:13 CDT CPT-41643 Insert non indwelling bld cath 08:00:20 CDT CPT-21267 Bladder Scan 08:00:20 CDT CPT-67690 Urine Dip (Floor Use Only) 16:01:16 LINOTYPER CPT-04831 Cystoscopy 16:01:06 LINOTYPER CPT-05459 Dil F ureth int 16:01:05 LINOTYPER CPT-52466 Urine Dip (Floor Use Only) 16:48:49 LINOTYPER CPT-71639 Bladder Scan 16:48:49 LINOTYPER
--- OUTSIDE RECORDS SUMMARY | 2019-01-31 13:04 | XMS REPORT | Continuity of Care Document ---
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 culture - 07:22 Methicillin resistant Staphylococcus aureus (MRSA) screening culture NEG NRG Complete blood count (CBC) with automated white blood cell (WBC) differential - 04/12/17 10:31 Blood leukocytes automated count (number/volume) 5.4 10*3/uL 4.3-11.0 Blood erythrocytes automated count (number/volume) 3.92 10*6/uL 4.35-5.85 Venous blood hemoglobin measurement (mass/volume) 11.8 g/dL 11.5-16.0 Blood hematocrit (volume fraction) 35 % 35-52 Automated erythrocyte mean corpuscular volume 90 [foz_us] 80-99 Automated erythrocyte mean corpuscular hemoglobin (mass per erythrocyte) 30 pg 25-34 Automated erythrocyte mean corpuscular hemoglobin concentration measurement ( mass/volume) 34 g/dL 32-36 Automated erythrocyte distribution width ratio 13.9 % 10.0-14.5 Automated blood platelet count (count/volume) 165 10*3/uL 130-400 Automated blood platelet mean volume measurement 11.0 [foz_us] 7.4-10.4 Automated blood neutrophils/100 leukocytes 68 % 42-75 Automated blood lymphocytes/100 leukocytes 17 % 12-44 Blood monocytes/100 leukocytes 12 % 0-12 Automated blood eosinophils/100 leukocytes 2 % 0-10 Automated blood basophils/100 leukocytes 1 % 0-10 Blood neutrophils automated count (number/volume) 3.7 10*3 1.8-7.8 Blood lymphocytes automated count (number/volume) 0.9 10*3 1.0-4.0 Blood monocytes automated count (number/volume) 0.7 10*3 0.0-1.0 Automated eosinophil count 0.1 10*3/uL 0.0-0.3 Automated blood basophil count (count/volume) 0.0 10*3/uL 0.0-0.1 Comprehensive metabolic panel - 04/12/17 10:31 Serum or plasma sodium measurement (moles/volume) 140 mmol/L 135-145 Serum or plasma potassium measurement (moles/volume) 3.0 mmol/L 3.6-5.0 Serum or plasma chloride measurement (moles/volume) 99 mmol/L 98-107 Carbon dioxide 28 mmol/L 21-32 Serum or plasma anion gap determination (moles/volume) 13 mmol/L 5-14 Serum or plasma urea nitrogen measurement (mass/volume) 18 mg/dL 7-18 Serum or plasma creatinine measurement (mass/volume) 1.10 mg/dL 0.60-1.30 Serum or plasma urea nitrogen/creatinine mass ratio 16 NRG Serum or plasma creatinine measurement with calculation of estimated glomerular filtration rate 48 NRG Serum or plasma glucose measurement (mass/volume) 128 mg/dL 70-105 Serum or plasma calcium measurement (mass/volume) 9.8 mg/dL 8.5-10.1 Serum or plasma total bilirubin measurement (mass/volume) 1.3 mg/dL 0.1-1.0 Serum or plasma alkaline phosphatase measurement (enzymatic activity/volume) 56 U/L 40-136 Serum or plasma aspartate aminotransferase measurement (enzymatic activity/ volume) 15 U/L 5-34 Serum or plasma alanine aminotransferase measurement (enzymatic activity/volume ) 11 U/L 0-55 Serum or plasma protein measurement (mass/volume) 7.1 g/dL 6.4-8.2 Serum or plasma albumin measurement (mass/volume) 4.1 g/dL 3.2-4.5 Serum or plasma C reactive protein measurement (mass/volume) - 04/12/17 10:31 Serum or plasma C reactive protein measurement (mass/volume) 2.12 mg /dL 0.00-0.50 Automated blood complete blood count (hemogram) panel - 04/13/17 03:55 Blood leukocytes automated count (number/volume) 5.8 10*3/uL 4.3-11.0 Blood erythrocytes automated count (number/volume) 3.19 10*6/uL 4.35-5.85 Venous blood hemoglobin measurement (mass/volume) 9.5 g/dL 11.5-16.0 Blood hematocrit (volume fraction) 29 % 35-52 Automated erythrocyte mean corpuscular volume 91 [foz_us] 80-99 Automated erythrocyte mean corpuscular hemoglobin (mass per erythrocyte) 30 pg 25-34 Automated erythrocyte mean corpuscular hemoglobin concentration measurement ( mass/volume) 33 g/dL 32-36 Automated erythrocyte distribution width ratio 13.8 % 10.0-14.5 Automated blood platelet count (count/volume) 142 10*3/uL 130-400 Automated blood platelet mean volume measurement 12.0 [foz_us] 7.4-10.4 Whole blood basic metabolic panel - 04/13/17 03:55 Serum or plasma sodium measurement (moles/volume) 140 mmol/L 135-145 Serum or plasma potassium measurement (moles/volume) 3.4 mmol/L 3.6-5.0 Serum or plasma chloride measurement (moles/volume) 105 mmol/L 98-107 Carbon dioxide 26 mmol/L 21-32 Serum or plasma anion gap determination (moles/volume) 9 mmol/L 5-14 Serum or plasma urea nitrogen measurement (mass/volume) 14 mg/dL 7-18 Serum or plasma creatinine measurement (mass/volume) 0.97 mg/dL 0.60-1.30 Serum or plasma urea nitrogen/creatinine mass ratio 14 NRG Serum or plasma creatinine measurement with calculation of estimated glomerular filtration rate 56 NRG Serum or plasma glucose measurement (mass/volume) 102 mg/dL 70-105 Serum or plasma calcium measurement (mass/volume) 8.7 mg/dL 8.5-10.1 Hemoglobin A1C - 06/18/17 11:30 AvGlu specimen was not sent from clinic mg/dL 70-110 Urinalysis - 07/10/17 08:10 Icotest N/A Negative Urine Volume Urine Volume Sufficient (10mL) Urine-Appearance Clear Clear Urine-Bacteria Trace Urine-Bilirubin Negative Negative Urine-Blood 1+ Negative Urine-Color Yellow Colorless-Lt. Yellow Urine-Epithelial Cells 5-10/HPF Urine-Glucose Negative Negative Urine-Ketones Negative Negative Urine-Leukocytes Trace Negative Urine-Nitrite Negative Negative Urine-Other Culture to follow Urine-pH 5.5 5-8.5 Urine-Protein Negative Negative Urine-RBC 2-5/HPF Urine-Specific [place] 1.020 1.000-1.030 Urine-WBC 2-5/HPF Urobilinogen 1.0 E.U./dL 0.2-1.0 Urine Culture - 07/10/17 08:10 PRELIM CULTURE RESULTS No Growth 24 hours FINAL CULTURE RESULTS 50,000-100,000 Gram Positive Mixed [place] MEDIA PLATED Setup at 14:59 on 07/10/2017 CULTURE SOURCE void BMP - 08/27/17 12:06 Anion Gap 13 6-14 BUN 16 mg/dL 5-25 Calcium 9.4 mg/dL 8.3-10.4 Chloride 106 mmol/L 95-114 CO2 25 mEq/L 22-33 Creat 0.89 mg/dL 0.50-1.50 eGFR 61 mL/min/1.73m2 >59 Glucose 104 mg/dL 70-110 Osmo 293 280-295 Potassium 3.3 mmol/L 3.5-5.3 Sodium 141 mmol/L 134-148 Urine Culture - 08/27/17 12:06 PRELIM CULTURE RESULTS No Growth 24 hours FINAL CULTURE RESULTS No Growth 48 hours MEDIA PLATED Setup at 12:09 08/27/2017 CULTURE SOURCE urine Urine Protein/Creat - 12/30/17 12:24 MTP 8 mg/dL 0-20 Urine Creatinine 111.3 mg/dl 0.0-50.0 Urine Protein/Creat Ratio 0.07 mg/dL Thyroid Stimulating Hormone - 04/06/18 09:35 TSH 2.89 mIU/mL 0.32-5.00 CBC with Auto Diff - 08/03/18 10:00 Baso% 1.60 % 0.00-2.50 Eos 0.1 K/uL 0.0-0.7 Eos% 3.9 % 0.0-7.0 Hct 39.4 % 36.0-46.0 Hgb 13.3 g/dL 13.0-15.0 Lym 0.99 K/uL 0.60-3.40 Lym% 38.8 % 10.0-50.0 MCH 31.4 pg 27.0-31.0 MCHC 33.8 g/dL 32.0-36.0 MCV 92.9 fL 80.0-97.0 Travis% 16.1 % 0.0-12.0 MPV 13.0 fL 7.4-10.0 Freddy% 39.6 % 37.0-80.0 Plt 147 K/uL 150-400 RBC 4.24 M/uL 3.60-5.00 RDW 13.3 % 11.6-14.8 WBC 2.55 K/uL 5.00-10.00 Freddy 1.01 K/uL 2.00-6.90 Travis 0.4 K/uL 0.0-0.9 Baso 0.0 K/uL 0.0-0.2 Creatinine - 09/04/18 07:42 Creat 1.02 mg/dL 0.50-1.50 eGFR 52 mL/min/1.73m2 >59 BMP - 09/09/18 13:35 Anion Gap 15 6-14 BUN 19 mg/dL 5-25 Calcium 10.4 mg/dL 8.3-10.4 Chloride 100 mmol/L 95-114 CO2 28 mEq/L 22-33 Creat 1.00 mg/dL 0.50-1.50 eGFR 54 mL/min/1.73m2 >59 Glucose 96 mg/dL 70-110 Osmo 289 280-295 Potassium 3.7 mmol/L 3.5-5.3 Sodium 139 mmol/L 134-148 MRSA Screen - 09/16/18 10:45 FINAL CULTURE RESULTS MRSA Negative Nasal Culture MEDIA PLATED Setup at 10:50 on 09/16/2018 Protime - 09/16/18 11:33 INR 1.1 1.0-4.0 Protime 13.0 Sec 9.9-12.8 Urine Culture - 09/16/18 12:45 PRELIM CULTURE RESULTS No Growth 24 hours FINAL CULTURE RESULTS No Growth 48 hours MEDIA PLATED Setup at 15:02 on 09/16/2018 CULTURE SOURCE catheter Blood CBC with ordered manual differential panel - 11/02/18 08:00 Blood leukocytes automated count (number/volume) 3.6 10*3/uL 4.3-11.0 Blood erythrocytes automated count (number/volume) 4.24 10*6/uL 4.35-5.85 Venous blood hemoglobin measurement (mass/volume) 13.0 g/dL 11.5-16.0 Blood hematocrit (volume fraction) 40 % 35-52 Automated erythrocyte mean corpuscular volume 93 [foz_us] 80-99 Automated erythrocyte mean corpuscular hemoglobin (mass per erythrocyte) 31 pg 25-34 Automated erythrocyte mean corpuscular hemoglobin concentration measurement ( mass/volume) 33 g/dL 32-36 Automated erythrocyte distribution width ratio 14.0 % 10.0-14.5 Automated blood platelet count (count/volume) 158 10*3/uL 130-400 Automated blood platelet mean volume measurement 12.6 [foz_us] 7.4-10.4 Automated blood neutrophils/100 leukocytes 33 % 42-75 Automated blood lymphocytes/100 leukocytes 50 % 12-44 Blood monocytes/100 leukocytes 9 % NRG Automated blood eosinophils/100 leukocytes 2 % 0-10 Automated blood basophils/100 leukocytes 1 % 0-10 Blood neutrophils automated count (number/volume) 1.2 10*3 1.8-7.8 Blood lymphocytes automated count (number/volume) 1.8 10*3 1.0-4.0 Blood monocytes automated count (number/volume) 0.5 10*3 0.0-1.0 Automated eosinophil count 0.1 10*3/uL 0.0-0.3 Automated blood basophil count (count/volume) 0.0 10*3/uL 0.0-0.1 Manual blood segmented neutrophils/100 leukocytes 32 % NRG Manual blood lymphocytes/100 leukocytes 45 % NRG Manual eosinophils/100 leukocytes in nose 3 % NRG Manual blood basophils/100 leukocytes 2 % NRG Blood lymphocytes variant/100 leukocytes 9 % NRG Blood ovalocytes detection by light microscopy SLIGHT NRG Blood princess cells detection by light microscopy MODERATE NRG Automated reticulocyte percentage - 11/02/18 08:00 Blood reticulocytes count (number/volume) 35 10*9/L 24- 90 Blood reticulocytes/100 erythrocytes 0.83 % 0.50-2.40 Peripheral Smear - 11/02/18 08:00 Peripheral smear Sent to [facility] Pathology for review Encounters ACCT No. Visit Date/Time Discharge Status Pt. Type Provider Facility Loc./Unit Complaint [id number] 01/16/2018 20:08:06 ACT Unknown [id number] 11/02/2018 15:20:00 11/02/2018 23:59:59 CLS Outpatient MELISSA LI [facility] LABNPT LUEKPENIA, THROMBOCYTOPENIA [id number] 08/28/2018 08:46:00 08/28/2018 23:59:59 CLS Outpatient CINDY ISRAEL MD [facility] RAD LT KNEE PAIN [id number] 07/06/2018 09:48:00 07/06/2018 23:59:59 CLS Outpatient ARGELIA GARCIA, AMADA Teresa [facility] CARD A-FIB,CAD,CHEST PAIN SYNDROME,HTN,MIXED HYPERLIPID [id number] 10/08/2017 09:35:00 10/08/2017 23:59:59 CLS Outpatient CINDY ISRAEL MD [facility] RAD SCREEN BREAST CA [id number] 10/02/2017 08:37:00 10/02/2017 23:59:59 CLS Outpatient OTHER, UNLISTED [facility] RAD N18.3 CHRONIC KIDNEY DISEASE [id number] 04/12/2017 13:04:00 04/13/2017 14:00:00 DIS Inpatient DENG ALDANA MD [facility] 4TH CELLULITIS R LEG [id number] 12/11/2016 06:44:00 12/11/2016 13:05:00 DIS Outpatient AMADA STOUT MD [facility] CATH ABNORMAL STRESS TEST,HTN ,HLP [id number] 12/04/2016 07:59:00 12/04/2016 23:59:59 CLS Outpatient AMADA STOUT MD [facility] CARD CAD,HTN,HLP [id number] 04/17/2015 15:54:00 04/17/2015 18:58:00 DIS Emergency ANGELA BRANCH [facility] ER R EYE INJ [id number] 10/24/2014 07:44:00 10/24/2014 23:59:59 CLS Outpatient SREEDHAR MANRIQUEZ [facility] CARD AFIB,CAD,CHF ,HTN [id number] 10/18/2014 08:37:00 10/18/2014 23:59:59 CLS Outpatient SREEDHAR MANRIQUEZ [facility] CARD AFIB,CAD,CHF ,HTN [id number] 05/10/2014 18:13:00 05/10/2014 20:57:00 DIS Emergency SELIN BUTLER MD [facility] ER SWOLLEN LEGS [id number] 02/14/2014 10:25:00 02/14/2014 23:59:59 CLS Outpatient [id number] 10/06/2013 08:59:00 10/06/2013 23:59:59 CLS Outpatient CINDY ISRAEL MD [facility] RAD SCREENING [id number] 02/03/2019 08:15:00 PEN Preadmit AMADA STOUT MD [facility] CARD CAD,HTN,LVH,MIXED HYPERLIPIDEMIA [id number] 10/01/2017 13:20:00 Document Registration [id number] 11/25/2016 07:50:00 Document Registration [id number] 11/25/2016 07:47:00 Document Registration [id number] 01/20/2013 08:31:00 Document Registration [id number] 05/05/2012 20:00:00 Document Registration [id number] 04/06/2012 11:26:00 Document Registration [id number] 03/25/2012 08:00:00 Document Registration [id number] 10/31/2011 13:11:00 Document Registration [id number] 10/30/2011 07:04:00 Document Registration [id number] 09/25/2007 09:30:00 Document Registration [id number] 07/22/2007 08:19:00 Document Registration [id number] 02/26/2018 13:15:00 02/26/2018 23:59:59 CLS Outpatient [facility] [id number] 11/02/2018 11:14:00 11/02/2018 23:59:00 DIS Outpatient Taylor Li [id number] 09/16/2018 09:54:00 09/16/2018 15:30:00 DIS Outpatient Erlin Navarro [id number] 09/09/2018 12:58:00 09/09/2018 23:59:00 DIS Outpatient Erlin Navarro [id number] 09/04/2018 07:35:00 09/04/2018 23:59:00 DIS Outpatient Erlin Navarro [id number] 08/03/2018 10:51:00 08/03/2018 23:59:00 DIS Outpatient CINDY ISRAEL [id number] 04/06/2018 12:15:00 04/06/2018 23:59:00 DIS Outpatient CINDY ISRAEL [id number] 12/30/2017 12:24:00 12/30/2017 23:59:00 DIS Outpatient CINDY ISRAEL [id number] 09/04/2017 11:53:00 09/04/2017 23:59:00 DIS Outpatient CINDY ISRAEL [id number] 08/27/2017 12:05:00 08/27/2017 23:59:00 DIS Outpatient CINDY ISRAEL [id number] 07/10/2017 11:25:00 07/10/2017 23:59:00 DIS Outpatient CINDY ISRAEL [id number] 06/25/2017 13:30:00 06/25/2017 23:59:00 DIS Outpatient CINDY ISRAEL [id number] 06/18/2017 12:28:00 06/18/2017 23:59:00 DIS Outpatient CINDY ISRAEL [id number] 02/03/2017 11:04:00 02/03/2017 23:59:00 DIS Outpatient CINDY ISRAEL [id number] 11/27/2016 14:30:00 11/27/2016 23:59:00 DIS Outpatient CINDY ISRAEL [id number] 09/09/2018 13:59:54 Document Registration [id number] 06/18/2017 12:28:00 Document Registration
--- NOTE | 2019-01-31 13:19 | NUR ---
BLOOD FOR LABS SENT TO LAB
[2019-01-31 13:26] LABS: BASOPHILS % (AUTO) 1 % (0-10); EOSINOPHILS # (AUTO) 0.1 10^3/uL (0.0-0.3); EOSINOPHILS % (AUTO) 2 % (0-10); HEMATOCRIT 38 % (35-52); HEMOGLOBIN 12.5 G/DL (11.5-16.0); LYMPHOCYTES # (AUTO) 1.4 X 10^3 (1.0-4.0); LYMPHOCYTES % (AUTO) 25 % (12-44); MEAN CORPUSCULAR HEMOGLOBIN 31 PG (25-34); MEAN CORPUSCULAR HGB CONC 33 G/DL (32-36); MEAN CORPUSCULAR VOLUME 93 FL (80-99); MEAN PLATELET VOLUME 11.4 FL (7.4-10.4); MONOCYTES # (AUTO) 0.7 X 10^3 (0.0-1.0); MONOCYTES % (AUTO) 13 % (0-12); NEUTROPHILS # (AUTO) 3.3 X 10^3 (1.8-7.8); NEUTROPHILS % (AUTO) 60 % (42-75); PLATELET COUNT 124 10^3/uL (130-400); RED CELL DISTRIBUTION WIDTH 14.1 % (10.0-14.5); WHITE BLOOD COUNT 5.5 10^3/uL (4.3-11.0)
[2019-01-31] MEDS ORDERED: KETAMINE 50 MG/ML 10 ML VIAL IV ONE (13:30)
--- NOTE | 2019-01-31 13:30 | NUR ---
MEPILEX DRESSING APPLIED TO SKIN TEAR ON LEFT FOREARM.
--- NOTE | 2019-01-31 13:30 | ED Fall/Injury ---
General Chief Complaint: Trauma-Non Activation Stated Complaint: FALL/R ARM PAIN Nursing Triage Note: PATIENT BROUGHT TO ER VIA [facility] WITH COMPLAINT OF FALL OUTSIDE. PER PATIENT SHE TRIPPED OVER A PARKING CURB AT [employer] AND LOST HER BALANCE, FALLING TO THE PAVEMENT. PER THE PATIENT SHE TRIED TO CATCH HERSELF WITH THE RIGHT ARM. SHE IS COMPLAINING OF RIGHT ELBOW PAIN AND RIGHT HIP PAIN. PATIENT IS RATING HER PAIN AT A 10 OUT OF 10 TO ELBOW. SHE DOES HAVE A DEFORMITY TO THE RIGHT ELBOW. SHE DENIES ANY LOSS OF CONSCIOUSNESS. EMS GAVE PATIENT FENTANYL 200 MCG PRIOR TO ARRIVAL. FAMILY MEMBER PRESENT WITH PATIENT. Source: patient Exam Limitations: no limitations (SELIN BUTLER MD) History of Present Illness Date Seen by Provider: January 31, 2019 Time Seen by Provider: 12:57 Initial Comments Here with report of tripping and falling at [facility]. She tried to stop her fall with outstretched right arm. She has significant right arm pain and deformity just above the elbow on the right as well as skin tear to the left forearm. EMS was summoned. They ended up given 200 g of fentanyl IV for pain which did not help. They had considered ketamine but were close by. Pulses were maintained throughout EMS evaluation and transport to the right radial site. Patient denies hitting her head but she is on anticoagulant. No loss of consciousness. Denies other injury. Occurred: just prior to arrival (less than 30 minutes ago) Severity: severe Injuries/Pain Location: upper extremity Context: lost balance, tripped Loss of Consciousness: no loss of consciousness Modifying Factors: Improves With Immobilization; Worse With Movement Associated Symptoms (Fall): No Abdominal Pain, No Chest Pain, No Headache, No Lightheadedness, No Muscle Spasms, No Nausea/Vomiting, No Neck Pain (SELIN BUTLER MD) Allergies and Home Medications Allergies Coded Allergies: Isosorbide Mononitrate (Verified Allergy, Unknown, 01/31/19) atorvastatin calcium (Verified Allergy, Unknown, 01/31/19) pravastatin sodium (Verified Allergy, Unknown, 01/31/19) Home Medications Acetaminophen 500 Mg Tablet, 500-1,000 MG PO TID PRN for PAIN-MILD Prescribed by: SONIA DENT on 04/12/17 1433 Acetaminophen with Codeine 1 Each Tablet, 1 EACH PO HS, (Reported) Donepezil HCl 5 Mg Tablet, 5 MG PO DAILY, (Reported) Furosemide 20 Mg Tablet, 20 MG PO DAILY PRN for 0 Prescribed by: SONIA DENT on 04/12/17 1427 Gabapentin 600 Mg Tab.er.24h, 600 MG PO DAILY AT 1800 , (Reported) Hydrochlorothiazide 25 Mg Tablet, 1 EACH PO DAILY, (Reported) Hydroxyzine HCl 10 Mg Tablet, 10 MG PO BID PRN, (Reported) Isosorbide Mononitrate 30 Mg Tab.er.24h, 30 MG PO DAILY, (Reported) Levothyroxine Sodium 50 Mcg Tablet, 50 MCG PO DAILY, (Reported) Metoprolol Tartrate 50 Mg Tablet, 50 MG PO BID, (Reported) Naproxen 375 Mg Tablet.dr, 375 MG PO BID PRN, (Reported) Omeprazole 20 Mg Capsule.dr, 20 MG PO DAILY, (Reported) Potassium Chloride 10 Meq Tablet.er, 10 MEQ PO DAILY Prescribed by: SONIA DENT on 04/12/17 1429 Rivaroxaban 20 Mg Tablet, 20 MG PO DAILY AT 1800 , (Reported) RESTART 04/09/12 Simvastatin 80 Mg Tablet, 80 MG PO DAILY, (Reported) Patient Home Medication List Home Medication List Reviewed: Yes (SELIN BUTLER MD) Review of Systems Review of Systems Constitutional: see HPI; No chills, No fever Eyes: No Symptoms Reported Ears, Nose, Mouth, Throat: no symptoms reported Respiratory: No cough, No short of breath Cardiovascular: No chest pain; edema (chronic that comes and goes and is typical to the legs with right greater than left which is also typical.) Gastrointestinal: No abdominal pain, No nausea, No vomiting Genitourinary: no symptoms reported Musculoskeletal: see HPI, joint pain, muscle pain; No neck pain; other (right arm pain and deformity) Skin: change in color, lesions Psychiatric/Neurological: Denies Headache, Denies Numbness, Denies Paresthesia (SELIN BUTLER MD) All Other Systems Reviewed Negative Unless Noted: Yes (SELIN BUTLER MD) Past Jmmitto-Foxpls-Gzqqzc Hx Past Med/Social Hx: Reviewed Nursing Past Med/Soc Hx (SELIN BUTLER MD) Patient Social History Alcohol Use: Denies Use Recreational Drug Use: No Smoking Status: Never a Smoker 2nd Hand Smoke Exposure: No Recent Foreign Travel: No Contact w/Someone Who Travel: No Recent Infectious Disease Expo: No Recent Hopitalizations: No (SELIN BUTLER MD) Immunizations Up To Date Tetanus Booster (TDap): Unknown Date of Pneumonia Vaccine: Nov 28, 2011 Date of Influenza Vaccine: Jul 02, 2016 (SELIN BUTLER MD) Seasonal Allergies Seasonal Allergies: No (SELIN BUTLER MD) Past Medical History Surgeries: Yes (cardiac stents, cath, BREAST BIOPSIES) Appendectomy, Coronary Stent, Gallbladder, Hysterectomy, Oophorectomy Respiratory: No Cardiac: Yes (SWELLING TO BILATERAL LOWER LEGS) Atrial Fibrillation, Coronary Artery Disease, Hypertension Neurological: No 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 Genitourinary: No (SOME STRESS INCONT ) Gastrointestinal: Yes Gastroesophageal Reflux Musculoskeletal: Yes Arthritis Endocrine: No HEENT: Yes Cataract Cancer: Yes (gall bladder, skin cancer) Psychosocial: No Integumentary: No Blood Disorders: No (SELIN BUTLER MD) Family Medical History Reviewed Nursing Family Hx (SELIN BUTLER MD) No Pertinent Family Hx (SELIN BUTLER MD) Physical Exam Vital Signs Vital Signs - First Documented 01/31/19 13:00 Temp 98.1 Pulse 123 Resp 26 B/P (MAP) 157/107 (124) Pulse Ox 97 O2 Delivery Nasal Cannula O2 Flow Rate 2.00 (STEW MOSHER APRN) Vital Signs Capillary Refill : Less Than 3 Seconds (SELIN BUTLER MD) Height, Weight, BMI Height: 5'7.00" Weight: 159lbs. 8.0oz. 72.680779vu; 30.1 BMI Method:Stated General Appearance: WD/WN, no apparent distress HEENT: PERRL/EOMI, pharynx normal Neck: full range of motion, supple Cardiovascular: tachycardia, irregularly irregular Respiratory: lungs clear, normal breath sounds Gastrointestinal: non tender, soft Back: normal inspection, no CVA tenderness, no vertebral tenderness Extremities: non-tender, normal inspection Neurologic/Psychiatric: alert, oriented x 3 Skin: ecchymosis (noted around the right elbow medial aspect), other (3 x 3 cm skin tear to the left forearm.) (SELIN BUTLER MD) Jeanine Coma Score Best Eye Response: (4) Open Spontaneously Best Verbal Response: (5) Oriented Best Motor Response: (6) Obeys Commands (SELIN BUTLER MD) Procedures/Interventions Splinting and Joint Reduction : Pre-Proc Neuro Vasc Exam: normal Post-Proc Neuro Vasc Exam: normal Progress right elbow Reduction Attempts: 1 Pre-Procedure NV Exam: Yes post joint reduction film: joint reduced Progress Sedated with 10 mg of etomidate, the distal aspect of the humerus was held downward against the bed, caudal and anterior traction applied to the proximal and distal forearm respectively. Joint was nicely reduced. Vascular exam afterwards remained unchanged. We'll perform neuro exam once she awakens and can partake in this exam. (STEW MOSHER APRN) Progress/Results/Core Measures Results/Orders Lab Results Laboratory Tests Test 01/31/19 13:19 Range/Units White Blood Count 5.5 4.3-11.0 10^3/uL Red Blood Count 4.04 L 4.35-5.85 10^6/uL Hemoglobin 12.5 11.5-16.0 G/DL Hematocrit 38 35-52 % Mean Corpuscular Volume 93 80-99 FL Mean Corpuscular Hemoglobin 31 25-34 PG Mean Corpuscular Hemoglobin Concent 33 32-36 G/DL Red Cell Distribution Width 14.1 10.0-14.5 % Platelet Count 124 L 130-400 10^3/uL Mean Platelet Volume 11.4 H 7.4-10.4 FL Neutrophils (%) (Auto) 60 42-75 % Lymphocytes (%) (Auto) 25 12-44 % Monocytes (%) (Auto) 13 H 0-12 % Eosinophils (%) (Auto) 2 0-10 % Basophils (%) (Auto) 1 0-10 % Neutrophils # (Auto) 3.3 1.8-7.8 X 10^3 Lymphocytes # (Auto) 1.4 1.0-4.0 X 10^3 Monocytes # (Auto) 0.7 0.0-1.0 X 10^3 Eosinophils # (Auto) 0.1 0.0-0.3 10^3/uL Basophils # (Auto) 0.0 0.0-0.1 10^3/uL Prothrombin Time 22.8 H 12.2-14.7 SEC INR Comment 1.9 H 0.8-1.4 Activated Partial Thromboplast Time 44 H 24-35 SEC Sodium Level 138 135-145 MMOL/L Potassium Level 3.6 3.6-5.0 MMOL/L Chloride Level 103 98-107 MMOL/L Carbon Dioxide Level 23 21-32 MMOL/L Anion Gap 12 5-14 MMOL/L Blood Urea Nitrogen 16 7-18 MG/DL Creatinine 1.05 0.60-1.30 MG/DL Estimat Glomerular Filtration Rate 51 BUN/Creatinine Ratio 15 Glucose Level 104 70-105 MG/DL Calcium Level 9.3 8.5-10.1 MG/DL Corrected Calcium 9.4 8.5-10.1 MG/DL Total Bilirubin 1.0 0.1-1.0 MG/DL Aspartate Amino Transf (AST/SGOT) 19 5-34 U/L Alanine Aminotransferase (ALT/SGPT) 16 0-55 U/L Alkaline Phosphatase 54 40-136 U/L Total Protein 6.4 6.4-8.2 GM/DL Albumin 3.9 3.2-4.5 GM/DL (STEW MOSHER APRN) Medications Given in ED Current Medications Medications Dose Ordered Sig/Jo-Ann Route Start Time Stop Time Status Last Admin Dose Admin Etomidate 20 mg STK-MED ONCE .ROUTE 01/31/19 13:33 01/31/19 13:38 DC 01/31/19 14:04 20 MG Ketamine HCl 20 mg ONCE ONCE IV 01/31/19 13:30 01/31/19 13:31 DC 01/31/19 13:05 20 MG Sodium Chloride 1,000 ml @ ud STK-MED ONCE .ROUTE 01/31/19 13:34 01/31/19 13:39 DC 01/31/19 13:40 1,000 MLS/HR (STEW MOSHER APRN) Vital Signs/I&O 01/31/19 13:00 Temp 98.1 Pulse 123 Resp 26 B/P (MAP) 157/107 (124) Pulse Ox 97 O2 Delivery Nasal Cannula O2 Flow Rate 2.00 (STEW MOSHER APRN) Blood Pressure Mean: 124 Progress Progress Note : Progress Note Seen and evaluated. IV by EMS. Labs and right elbow x-ray ordered. CT head as well. Ketamine 20 mg IV over 12 minutes was given and this provided excellent pain control. Elbow x-ray shows clear dislocation without obvious fracture on single view film. We will reduce this using etomidate given the amount of dosing that she's had of fentanyl. We will do 10 mg IV. This is discussed with patient and family who agree. (SELIN BUTLER MD) Diagnostic Imaging Diagonstic Imaging: CT Plain Films/CT/US/NM/MRI: head Comments [facility] [place], [place] NAME: RENÉ DAMON [facility] REC#: [id number] PT STATUS: REG ER : 1940 PHYSICIAN: SELIN BUTLER MD ADMIT DATE: 01/31/19/ER Draft Date of Exam:01/31/19 CT HEAD WO PROCEDURE: CT head without contrast. TECHNIQUE: Multiple contiguous axial images were obtained through the brain without the use of intravenous contrast. Auto Exposure Controls were utilized during the CT exam to meet ALARA standards for radiation dose reduction. INDICATION: Fall, head injury. COMPARISON: 04/17/2015. FINDINGS: The ventricles and cortical sulci are prominent. There is no midline shift or mass effect identified. No acute intracranial hemorrhage is seen. No CT evidence of acute territorial ischemia is seen. The calvarium is intact. There are multiple mucous retention cysts in the maxillary sinuses bilaterally. There is hyperostosis frontalis. IMPRESSION: 1. No acute intracranial hemorrhage. No CT evidence of acute territorial ischemia. 2. Generalized parenchymal volume loss. Dictated on workstation # [id number] Dict: 01/31/19 1447 Trans: 01/31/19 1455 [facility] [id number] Interpreted by: BRANDY PARK MD Electronically signed by: Diagonstic Imaging: Xray Comments [facility] [place] [place] NAME: RENÉ DAMON [facility] REC#: [id number] PT STATUS: REG ER : 1940 PHYSICIAN: SELIN BUTLER MD ADMIT DATE: 01/31/19/ER Draft Date of Exam:01/31/19 ELBOW, RIGHT, 2 VIEW PATIENT HISTORY: Fall, right elbow injury. TECHNIQUE: Single lateral view of the right elbow. COMPARISON: None. FINDINGS: There is a posterior dislocation of the ulna and radius from the humerus. A small ossific fragment from a chip fracture seen, likely from the coronoid process of the ulna. There is a large joint effusion and surrounding soft tissue edema. IMPRESSION: Posterior dislocation at the right elbow, with small displaced avulsion fracture, possibly from the coronoid process. Dictated on workstation # [id number] Dict: 01/31/19 1348 Trans: 01/31/19 1355 [facility] [id number] Interpreted by: BRANDY PARK MD Electronically signed by: Diagonstic Imaging: Xray Plain Films/CT/US/NM/MRI: elbow Comments [facility] [place] [place] NAME: RENÉ DAMON [facility] REC#: [id number] PT STATUS: REG ER : 1940 PHYSICIAN: SELIN BUTLER MD ADMIT DATE: 01/31/19/ER Draft Date of Exam:01/31/19 ELBOW, RIGHT, 2 VIEW PATIENT HISTORY: Post reduction. TECHNIQUE: Two views of the right elbow. COMPARISON: Radiographs from the same day. FINDINGS: There has been interval reduction of the elbow dislocation. Alignment of the radius and ulna are markedly improved. Small calcifications are seen which may represent small avulsion fracture fragments. There is marked soft tissue swelling/hematoma at the medial aspect of the elbow. A large right elbow joint effusion is present. IMPRESSION: 1. Reduction of the right elbow dislocation with improved alignment. Small avulsion fracture fragments are seen. 2. Very large soft tissue swelling/hematoma at the medial aspect of the elbow. Large right elbow joint effusion. Dictated on workstation # [id number] Dict: 01/31/19 1444 Trans: 01/31/19 1452 TS [id number] Interpreted by: BRANDY PARK MD Electronically signed by: Diagonstic Imaging: Xray Plain Films/CT/US/NM/MRI: pelvis, hip Comments [facility] [place] [place] NAME: RENÉ DAMON [facility] REC#: [id number] PT STATUS: REG ER : 1940 PHYSICIAN: SELIN BUTLER MD ADMIT DATE: 01/31/19/ER Draft Date of Exam:01/31/19 ELBOW, RIGHT, 2 VIEW PATIENT HISTORY: Post reduction. TECHNIQUE: Two views of the right elbow. COMPARISON: Radiographs from the same day. FINDINGS: There has been interval reduction of the elbow dislocation. Alignment of the radius and ulna are markedly improved. Small calcifications are seen which may represent small avulsion fracture fragments. There is marked soft tissue swelling/hematoma at the medial aspect of the elbow. A large right elbow joint effusion is present. IMPRESSION: 1. Reduction of the right elbow dislocation with improved alignment. Small avulsion fracture fragments are seen. 2. Very large soft tissue swelling/hematoma at the medial aspect of the elbow. Large right elbow joint effusion. Dictated on workstation # [id number] Dict: 01/31/19 1444 Trans: 01/31/19 1452 [id number] Interpreted by: BRANDY PARK MD Electronically signed by: (SELIN BUTLER MD) Departure Impression Primary Impression: Dislocation of right elbow Qualified Codes: S53.104A - Unspecified dislocation of right ulnohumeral joint , initial encounter Additional Impressions: Contusion of right hip Qualified Codes: S70.01XA - Contusion of right hip, initial encounter Skin tear of left forearm without complication Qualified Codes: S51.812A - Laceration without foreign body of left forearm, initial encounter Disposition: 01 HOME, SELF-CARE Condition: Stable Departure-Patient Inst. Decision time for Depature: 15:49 (SELIN BUTLER MD) Referrals: CINDY ISRAEL MD (PCP/Family) Primary Care Physician BELKIS KUMARI DO Patient Instructions: Contusion (DC), Elbow Fracture (DC), Skin Abrasions (DC) Add. Discharge Instructions: All discharge instructions reviewed with patient and/or family. Voiced understanding. You may take prescribed pain medicine one every 4-6 hours as needed for pain. If you are not taking the prescribed pain medicine you may take Tylenol/ acetaminophen 1000 mg every 8 hours as needed for pain. Do not take it with the prescribed pain medicine as they both have acetaminophen in them. Follow-up with Dr. Kumari this week. Call his office first thing tomorrow morning for appointment early this week for concerns related to the elbow dislocation which was reduced, and the small chip fracture noted on x-ray. Use sling at all times. You may use ice pack to areas of concern to reduce swelling and bruising 20 minutes per hour as needed. Keep elbow and arm elevated as much as possible. Return for worse pain, fever, vomiting, weakness, breathing problems or other concerns as needed. Scripts Hydrocodone Bit/Acetaminophen (Hydrocodone/Acetaminophen 5/325mg Tablet) 1 Tab Tab 1 EACH PO Q6H PRN for PAIN-MODERATE MDD 10, #14 TAB 0 Refills Prov: SELIN BUTLER MD 01/31/19 SELIN BUTLER MD January 31, 2019 13:30 STEW MOSHER APRN January 31, 2019 14:34
[2019-01-31] MEDS ORDERED: DONE5TAB30 PO (13:32)
[2019-01-31] MEDS ORDERED: [UNRECOGNIZED DRUG - CODE] PO (13:32)
[2019-01-31] MEDS ORDERED: SIMV80TA21 PO (13:32)
[2019-01-31] MEDS ORDERED: HYDR-3584 PO (13:32)
[2019-01-31] MEDS ORDERED: METO50TA15 PO (13:32)
[2019-01-31] MEDS ORDERED: OMEP20CA12 PO (13:32)
[2019-01-31] MEDS ORDERED: ISOS30TA3 PO (13:32)
[2019-01-31] MEDS ORDERED: ETOMIDATE IV SOLN 20 MG/10 ML VIAL ONE (13:33)
[2019-01-31] MEDS ORDERED: NS IV 1000 ML 1,000 ML ONE (13:34)
[2019-01-31 13:37] LABS: INR 1.9 (0.8-1.4); PROTHROMBIN TIME PATIENT 22.8 SEC (12.2-14.7)
--- NOTE | 2019-01-31 13:41 | NUR ---
CONSENT SIGNED BY DAUGHTER FOR REDUCTION OF RIGHT ELBOW BY DR. BUTLER.
[2019-01-31 13:46] LABS: ALBUMIN 3.9 GM/DL (3.2-4.5); CALCIUM 9.3 MG/DL (8.5-10.1); CREATININE SERUM 1.05 MG/DL (0.60-1.30); POTASSIUM 3.6 MMOL/L (3.6-5.0); TOTAL PROTEIN 6.4 GM/DL (6.4-8.2)
--- NOTE | 2019-01-31 13:56 | Diagnostic Imaging Report ---
PATIENT HISTORY: Fall, right elbow injury. TECHNIQUE: Single lateral view of the right elbow. COMPARISON: None. FINDINGS: There is a posterior dislocation of the ulna and radius from the humerus. A small ossific fragment from a chip fracture seen, likely from the coronoid process of the ulna. There is a large joint effusion and surrounding soft tissue edema. IMPRESSION: Posterior dislocation at the right elbow, with small displaced avulsion fracture, possibly from the coronoid process. Dictated by: Dictated on workstation # [id number]
--- NOTE | 2019-01-31 14:20 | NUR ---
SLING PLACED AND SECURED ON RIGHT ARM. ICE PACK PLACED TO RIGHT ELBOW HEMATOMA.
--- NOTE | 2019-01-31 14:28 | NUR ---
13:59 DR BUTLER AND STEW MOSHER FLORIST IN ROOM. PROCEDURE EXPLAINED TO PATIENT AND DAUGHTER. 14:04 ETOMIDATE 10 MG GIVEN SLOW IV PUSH OVER 2 MINUTES. 14:06 PATIENT SEDATED AND REDUCTION OF RIGHT ELBOW PERFORMED BY STEW MOSHER NP AND DR BUTLER. PROCEDURE COMPLETED AT 14:06. PATIENT REMAINS SEDATED DURING PROCEDURE. 14:06 END TIDAL CO2 IS 29 X-RAY TECH IN ROOM FOR PORTABLE X-RAY OF RIGHT ELBOW AT 14:15 14:20 PATIENT AWAKE, MOANING. TRYING TO TALK TO FAMILY MEMBERS PRESENT IN ROOM. 14:32 PATIENT AWAKE AND ALERT, ABLE TO ANSWER QUESTIONS APPROPRIATELY. 14:[address] AND X-RAY DEPARTMENT VIA CART.
--- NOTE | 2019-01-31 14:53 | Diagnostic Imaging Report ---
PATIENT HISTORY: Post reduction. TECHNIQUE: Two views of the right elbow. COMPARISON: Radiographs from the same day. FINDINGS: There has been interval reduction of the elbow dislocation. Alignment of the radius and ulna are markedly improved. Small calcifications are seen which may represent small avulsion fracture fragments. There is marked soft tissue swelling/hematoma at the medial aspect of the elbow. A large right elbow joint effusion is present. IMPRESSION: 1. Reduction of the right elbow dislocation with improved alignment. Small avulsion fracture fragments are seen. 2. Very large soft tissue swelling/hematoma at the medial aspect of the elbow. Large right elbow joint effusion. Dictated by: Dictated on workstation # [id number]
--- NOTE | 2019-01-31 14:56 | Diagnostic Imaging Report ---
PROCEDURE: CT head without contrast. TECHNIQUE: Multiple contiguous axial images were obtained through the brain without the use of intravenous contrast. Auto Exposure Controls were utilized during the CT exam to meet ALARA standards for radiation dose reduction. INDICATION: Fall, head injury. COMPARISON: 04/17/2015. FINDINGS: The ventricles and cortical sulci are prominent. There is no midline shift or mass effect identified. No acute intracranial hemorrhage is seen. No CT evidence of acute territorial ischemia is seen. The calvarium is intact. There are multiple mucous retention cysts in the maxillary sinuses bilaterally. There is hyperostosis frontalis. IMPRESSION: 1. No acute intracranial hemorrhage. No CT evidence of acute territorial ischemia. 2. Generalized parenchymal volume loss. Dictated by: Dictated on workstation # [id number]
--- NOTE | 2019-01-31 14:56 | NUR ---
PATIENT BACK TO ROOM FROM CT AND X-RAY. PATIENT IS AWAKE AND ALERT. SHE RATES HER PAIN AT A 5 OUT OF 10 TO RIGHT ELBOW AND RIGHT HIP AREA. FAMILY MEMBERS PRESENT IN ROOM.
--- NOTE | 2019-01-31 15:09 | Diagnostic Imaging Report ---
EXAM: Pelvis with right hip, 2-3 views. INDICATION: Fall. Right hip pain. COMPARISON: None. FINDINGS: No fracture or malalignment. No suspicious osteoblastic or lytic lesions. Mild degenerative changes in the right hip. Soft tissue shadows are unremarkable. IMPRESSION: No acute radiographic findings in the right hip. If there remains clinical suspicion for right hip fracture, MRI would be more sensitive. Dictated by: Dictated on workstation # [id number]
[2019-01-31] MEDS ORDERED: ONDANSETRON 4 MG/2 ML (SDV) Z0FRAN ONE (15:10)
--- NOTE | 2019-01-31 15:17 | NUR ---
PATIENT ASSISTED UP TO BEDSIDE COMMODE. PATIENT URINATED AND THEN BECAME LIGHTHEADED WITH NAUSEA AND FELT LIKE SHE WAS GOING TO PASS OUT. PATIENT ASSISTED BACK TO BED AND AFTER BEING PLACED BACK IN BED, SHE STATES SHE IS FEELING BETTER. ZOFRAN GIVEN IV.
[2019-01-31] MEDS ORDERED: ONDANSETRON 4 MG/2 ML (SDV) Z0FRAN IVP ONE (15:30)
[2019-01-31] MEDS ORDERED: HYDROcodone/APAP 5 MG/325 MG (LORTAB) TAB PO ONE (15:45)
[2019-01-31] MEDS ORDERED: ACHD5005 PO (15:46)
--- NOTE | 2019-01-31 15:52 | NUR ---
PATIENT TAKEN TO X-RAY BY CART.
--- NOTE | 2019-01-31 16:38 | NUR ---
PATIENT SLEEPING AFTER ORAL PAIN MEDICATION GIVEN. NO SIGNS OF DISTRESS PRESENT.
--- NOTE | 2019-01-31 16:50 | Diagnostic Imaging Report ---
PATIENT HISTORY: Fall, right shoulder pain. TECHNIQUE: Two views of the right shoulder. COMPARISON: None FINDINGS: No acute fracture or dislocation is seen in the right shoulder. Alignment appears normal. There are mild degenerative changes in the right acromioclavicular joint. IMPRESSION: No acute osseous abnormalities seen in the right shoulder. Dictated by: Dictated on workstation # [id number]
[2019-01-31 16:52] VITALS: BP 99/66
--- NOTE | 2019-01-31 16:53 | NUR ---
PATIENT IS AWAKE AND ALERT X 4 AT TIME OF DISCHARGE. PATIENT IS ABLE TO MOVE FINGERS TO RIGHT HAND UPON DISCHARGE. LARGE HEMATOMA PRESENT TO RIGHT ELBOW. ICE PACKS SENT HOME WITH PATIENT TO PLACE ON HEMATOMA FOR 20 MINUTES EVERY HOUR NEEDED. PATIENT DISCHARGED HOME WITH FAMILY.
== END 2019-01-31 16:56 | disposition home or self-care (01) ==
LOC: EDUNIT# 12:55 → ER 12:55
DX: S53.124A Posterior dislocation of right ulnohumeral joint, initial encounter (principal); S51.812A Laceration without foreign body of left forearm, initial encounter; S70.01XA Contusion of right hip, initial encounter; I48.91 Unspecified atrial fibrillation; I25.10 Atherosclerotic heart disease of native coronary artery without angina pectoris; I10 Essential (primary) hypertension; K21.9 Gastro-esophageal reflux disease without esophagitis; R40.2142 Coma scale, eyes open, spontaneous, at arrival to emergency department; R40.2252 Coma scale, best verbal response, oriented, at arrival to emergency department; R40.2362 Coma scale, best motor response, obeys commands, at arrival to emergency department; Z90.49 Acquired absence of other specified parts of digestive tract; Z95.5 Presence of coronary angioplasty implant and graft; Z85.828 Personal history of other malignant neoplasm of skin; Z85.09 Personal history of malignant neoplasm of other digestive organs; Z90.710 Acquired absence of both cervix and uterus; Z79.01 Long term (current) use of anticoagulants; Z88.8 Allergy status to other drugs, medicaments and biological substances; W01.0XXA Fall on same level from slipping, tripping and stumbling without subsequent striking against object, initial encounter; Y92.22 Religious institution as the place of occurrence of the external cause
CPT/HCPCS: 36415; 70450; 73030; 73070; 80053; 85025; 85610; 85730; 96361; 96374; 96375

== ENCOUNTER → 2019-02-01 | Outpatient (CLI) | payer MEDICARE, OTHER ==
[~2019-02-01] MED LIST changes: +ACHD5005 PO; +DONE5TAB30 PO; +HYDR-3584 PO; +ISOS30TA3 PO; +METO50TA15 PO; +OMEP20CA12 PO; +SIMV80TA21 PO; +[UNRECOGNIZED DRUG - CODE] PO
== END ==
LOC: LAB 10:36
PROVIDERS: ATTEND Family Medicine
DX: E11.9 Type 2 diabetes mellitus without complications (principal)
CPT/HCPCS: 36415; 83036

== ENCOUNTER → 2019-08-04 | Outpatient (CLI) | payer MEDICARE, OTHER ==
[~2019-08-04] VITALS: Ht 170 cm; Wt 71.0 kg
[~2019-08-04] MED LIST changes: +CATHETER FLUSH 10 ML SYR IV PRN; -OMEP20CA12 PO; +OMEP20CA13 PO; +REGADENOSON 0.4 MG/5 ML SYR (LEXISCAN) IV ONE
--- NOTE | 2019-08-04 15:09 | STRESS TEST ---
DATE OF SERVICE: 08/04/2019 LEXISCAN MYOVIEW STRESS TEST REFERRING PHYSICIAN: Kristen Morton MD Baseline heart rate is 69, baseline blood pressure 147/77. Baseline EKG is sinus rhythm with occasional PVCs. In summary, the patient was injected with 10.08 mCi of technetium-99 Myoview and the resting images were obtained. Then, the patient received 0.4 mg of Lexiscan followed by 31.9 mCi of technetium-99 Myoview. Throughout the test, there were no EKG changes. The resting and stress images were reviewed and compared in the short axis, horizontal long axis, and vertical long axis views. Review of the images showed breast attenuation with mild decreased uptake involving the mid to apical anterior wall with no significant reversibility. SSS is 4. SDS is 0. TID value is 1.06. On the gated images, the left ventricle appeared to be normal size with normal contractility. Calculated ejection fraction is 68%. CONCLUSION: 1. The patient tolerated Lexiscan well. 2. Extracardiac attenuation with typical female pattern with no significant ischemia or infarction on SPECT images. 3. Normal left ventricular size with normal contractility. Calculated ejection fraction is 68%. Job ID: [id number] DocumentID: [id number] Dictated Date: 08/04/2019 15:03:33 Packer Fuser Date: 08/04/2019 15:09:44 Dictated By: AMADA STOUT MD
== END ==
LOC: CARD 07:57
PROVIDERS: ATTEND Physician Assistant
DX: I11.9 Hypertensive heart disease without heart failure (principal); I25.10 Atherosclerotic heart disease of native coronary artery without angina pectoris; E78.2 Mixed hyperlipidemia
CPT/HCPCS: 78452; 93017

== ENCOUNTER 2019-11-08 09:52 | Outpatient (CLI) | payer MEDICARE, OTHER ==
[~2019-11-08] VITALS: Ht 162.6 cm; Wt 73.8 kg
[~2019-11-08 09:52] MED LIST changes: -CATHETER FLUSH 10 ML SYR IV PRN; +OMEP-280 PO; -OMEP20CA13 PO; -REGADENOSON 0.4 MG/5 ML SYR (LEXISCAN) IV ONE
[2019-11-08 10:09] VITALS: BP 121/63
[2019-11-08 11:00] LABS: BASOPHILS % (AUTO) 1 % (0-10); EOSINOPHILS # (AUTO) 0.1 10^3/uL (0.0-0.3); EOSINOPHILS % (AUTO) 3 % (0-10); HEMATOCRIT 40 % (35-52); HEMOGLOBIN 13.3 G/DL (11.5-16.0); LYMPHOCYTES # (AUTO) 1.1 X 10^3 (1.0-4.0); LYMPHOCYTES % (AUTO) 37 % (12-44); MEAN CORPUSCULAR HEMOGLOBIN 31 PG (25-34); MEAN CORPUSCULAR HGB CONC 34 G/DL (32-36); MEAN CORPUSCULAR VOLUME 93 FL (80-99); MEAN PLATELET VOLUME 11.7 FL (7.4-10.4); MONOCYTES # (AUTO) 0.4 X 10^3 (0.0-1.0); MONOCYTES % (AUTO) 12 % (0-12); NEUTROPHILS # (AUTO) 1.4 X 10^3 (1.8-7.8); NEUTROPHILS % (AUTO) 47 % (42-75); PLATELET COUNT 137 10^3/uL (130-400); RED CELL DISTRIBUTION WIDTH 13.7 % (10.0-14.5)
[2019-11-08 11:02] LABS: BILIRUBIN,URINE NEGATIVE (NEGATIVE); CLARITY,URINE CLEAR; COLOR,URINE YELLOW; GLUCOSE, URINE (UA) TRACE (NEGATIVE); KETONES,URINE NEGATIVE (NEGATIVE); LEUKOCYTE ESTERASE ,URINE NEGATIVE (NEGATIVE); NITRITE,URINE NEGATIVE (NEGATIVE); PROTEIN,URINE NEGATIVE (NEGATIVE)
[2019-11-08 11:10] LABS: PROTHROMBIN TIME PATIENT 23.5 SEC (12.2-14.7)
[2019-11-08 11:16] LABS: CALCIUM 9.3 MG/DL (8.5-10.1); CREATININE SERUM 1.02 MG/DL (0.60-1.30); POTASSIUM 3.5 MMOL/L (3.6-5.0)
[2019-11-08 11:19] LABS: BACTERIA,URINE TRACE /HPF
[2019-11-08] MEDS ORDERED: CALC0.253 PO (14:52)
[2019-11-08] MEDS ORDERED: PRAV40TA2 PO (14:52)
[2019-11-08] MEDS ORDERED: DOCU100T7 PO (14:52)
[2019-11-08] MEDS ORDERED: CARV3.122 PO (14:52)
[2019-11-08] MEDS ORDERED: CYAN100088 PO (14:52)
[2019-11-08] MEDS ORDERED: UBID100C17 PO (14:52)
[2019-11-08] MEDS ORDERED: ACET-168 PO (14:52)
[2019-11-08] MEDS ORDERED: RIVA20TA2 PO (14:52)
[2019-11-08] MEDS ORDERED: FEXO-46 PO (14:52)
[2019-11-08] MEDS ORDERED: FURO20TA4 PO (14:52)
[2019-11-08] MEDS ORDERED: LEVO50TA6 PO (14:52)
[2019-11-08] MEDS ORDERED: POTA-51 PO (14:52)
[2019-11-08] MEDS ORDERED: PANT40TA3 PO (14:52)
[2019-11-08] MEDS ORDERED: ACET-2267 PO (14:52)
== END 2019-11-08 10:55 | disposition home or self-care (01) ==
LOC: PREOP 09:52
PROVIDERS: ATTEND Orthopaedic Surgery
DX: Z01.818 Encounter for other preprocedural examination (principal); Z11.2 Encounter for screening for other bacterial diseases; M17.12 Unilateral primary osteoarthritis, left knee; M79.662 Pain in left lower leg; R53.83 Other fatigue; I10 Essential (primary) hypertension; Z22.322 Carrier or suspected carrier of Methicillin resistant Staphylococcus aureus
CPT/HCPCS: 36415; 80048; 81000; 85025; 85610; 86850; 86900; 86901; 87081

== ENCOUNTER 2019-11-16 08:01 | Inpatient (IN) | payer MEDICARE, OTHER ==
[~2019-11-16] VITALS: Ht 162.6 cm; Wt 73.8 kg
[2019-11-16] VITALS (12 sets, daily range): BP systolic 99–146; BP diastolic 58–95
[~2019-11-16 08:01] MED LIST changes: +ACET-168 PO; +CALC0.253 PO; +CARV3.122 PO; +CYAN100088 PO; +DOCU100T7 PO; +FEXO-46 PO; +LEVO50TA6 PO; +PANT40TA3 PO; +POTA-51 PO
[2019-11-16] MEDS ORDERED: NEO/POLY/BAC (NEOSPORIN) OINT 15 GM TUBE ONE (08:22)
[2019-11-16] MEDS ORDERED: GENTAMICIN 40 MG/ML 2 ML INJ SDV ONE (08:22)
[2019-11-16] MEDS ORDERED: GABAPENTIN 600 MG (NEURONTIN) TAB PO ONE (08:45)
[2019-11-16] MEDS ORDERED: ONDANSETRON 4 MG/2 ML (SDV) Z0FRAN IVP ONE (08:45)
[2019-11-16] MEDS ORDERED: CELECOXIB 100 MG (CeleBREX) CAP PO ONE (08:45)
[2019-11-16] MEDS ORDERED: ceFAZolin 2 GM/50 ML NS 50 ML IV ONE (08:45)
[2019-11-16] MEDS ORDERED: DEXAMETHASONE 4 MG/ML SDV (DECADRON) IV ONE (08:45)
[2019-11-16] MEDS ORDERED: FAMOTIDINE 20MG/2ML IV (PEPCID) ONE (09:02)
[2019-11-16] MEDS ORDERED: MIDAZOLAM 2 MG/2 ML (VERSED) VIAL ONE (09:11)
[2019-11-16] MEDS ORDERED: fentaNYL INJECTION 100 MCG/2 ML AMP ONE ×2 (09:11→12:16)
[2019-11-16 09:29] LABS: INR 1.1 (0.8-1.4); PROTHROMBIN TIME PATIENT 14.2 SEC (12.2-14.7)
[2019-11-16] MEDS ORDERED: FAMOTIDINE 20MG/2ML IV (PEPCID) IVP ONE (09:30)
[2019-11-16] MEDS: LACTATED RINGERS 1,000 ML IV PRN ×2 (09:32→10:59)
[2019-11-16] MEDS ORDERED: INTRA-ARTICULAR IU ONE ×4 (10:00)
--- NOTE | 2019-11-16 10:00 | Progress Note-Pre Operative ---
Pre-Operative Progress Note H&P Reviewed The H&P was reviewed, patient examined and no changes noted. Date Seen by Provider: Nov 16, 2019 Time Seen by Provider: :59 Date H&P Reviewed: Nov 16, 2019 Time H&P Reviewed: 09:59 Pre-Operative Diagnosis: Primary Osteoarthritis Left Knee BELKIS HARKINS DO Nov 16, 2019 10:00
[2019-11-16] MEDS ORDERED: ONDANSETRON 4 MG (ZOFRAN) ORAL DISSOLVE TAB PO PRN (10:30)
[2019-11-16] MEDS ORDERED: ONDANSETRON 4 MG/2 ML (SDV) Z0FRAN IV PRN (10:30)
[2019-11-16] MEDS ORDERED: BISACODYL 10 MG SUPP (DULCOLAX) PR PRN (10:30)
[2019-11-16] MEDS ORDERED: LORATADINE (CLARITIN) 10 MG TAB PO PRN (10:30)
[2019-11-16] MEDS ORDERED: MILK OF MAGNESIA 400 MG/5 ML 30 ML UDC PO PRN (10:30)
[2019-11-16] MEDS ORDERED: BUPIVACAINE 0.5% 30 ML (SENSORCAINE) VIAL ONE (10:33)
[2019-11-16] MEDS ORDERED: LIDOCAINE PF 2% 5 ML (XYLOCAINE) VIAL ONE (10:33)
[2019-11-16] MEDS ORDERED: proPOfol 200 MG/20 ML (DIPRIVAN) VIAL IV ONE (10:33)
[2019-11-16] MEDS ORDERED: TRANEXAMIC ACID 100 MG/ML 10 ML INJECTION IV ONE (10:34)
[2019-11-16] MEDS ORDERED: SEVOFLURANE (ULTANE) 15 ML INHAL SOLN ONE ×8 (10:34→12:36)
[2019-11-16] MEDS ORDERED: ONDANSETRON 4 MG/2 ML (SDV) Z0FRAN ONE ×2 (10:34→12:53)
--- NOTE | 2019-11-16 12:35 | Progress Note-Post Operative ---
Post-Operative Progess Note Surgeon (s)/Matrix Bath Operator (s) Surgeon BELKIS HARKINS DO Matrix Bath Operator: [address] BOOM STICK WORKER-C Pre-Operative Diagnosis Primary Osteoarthritis Left Knee Post-Operative Diagnosis same Procedure & Operative Findings Date of Procedure 11/16/19 Procedure Performed/Findings Left total knee arthroplasty Anesthesia Type General with femoral and genicular block Estimated Blood Loss Estimated blood loss (mL): 100 ml Specimens/Packing Specimens Removed none BELKIS HARKINS DO Nov 16, 2019 12:34
[2019-11-16] MEDS ORDERED: morphine INJ 10 MG/ML 1ML (SYR OR VIAL) ONE (12:53)
[2019-11-16] MEDS ORDERED: ONDANSETRON 4 MG/2 ML (SDV) Z0FRAN IVP PRN (13:00)
[2019-11-16] MEDS ORDERED: morphine INJ 10 MG/ML 1ML (SYR OR VIAL) IVP ONE (13:00)
[2019-11-16] MEDS ORDERED: PROMETHAZINE INJ 25 MG/ML (PHENERGAN) AMP IVP ONE (13:00)
--- NOTE | 2019-11-16 13:16 | OPERATIVE REPORT ---
DATE OF SERVICE: 11/16/2019 PREOPERATIVE DIAGNOSIS: Primary osteoarthritis, left knee. POSTOPERATIVE DIAGNOSIS: Primary osteoarthritis, left knee. PROCEDURE: Left total knee arthroplasty. SURGEON: Belkis Harkins DO LEGISLATIVE ASSISTANT: LACI Acevedo. SURGICAL TAR HEEL DUTIES: [address], surgical resident was utilized throughout the entire procedure for the patient positioning, soft tissue retraction, assistance in placement of total knee implants, wound closure, dressing application and the patient transfer. ANESTHESIA: General with femoral and genicular regional nerve block. ESTIMATED BLOOD LOSS: 100 mL. COMPLICATIONS: None. OPERATIVE TIME: Please see anesthesia report. INDICATIONS AND FINDINGS: The patient is a 79-year-old female seen with chief complaint of progressive left knee pain, nonresponsive to conservative treatment. X-rays revealed a varus deformity of the left knee with collapse of the medial compartment and degenerative change of the patellofemoral joint. The patient was taken to surgery where a total knee arthroplasty was performed on the left without complication utilizing the [employer] Softwareguard total knee system. A 65 mm press fit femoral component was utilized. A 71 mm fixed I-beam cemented tibial component was used, a 31 mm 3-pronged all polyethylene cemented thin patella, patellar component with a 13 mm anterior stabilized tibial bearing implant, PALACOS bone cement was used. PROCEDURE IN DETAIL: The patient was seen by anesthesia preoperatively and under ultrasound guidance, a femoral and genicular regional nerve block was performed to decrease postoperative pain and decrease amount of medication required during the surgical procedure. The patient was transferred to the operating room where a general inhalation anesthetic was administered. A well-padded pneumatic tourniquet was placed about the upper aspect of left thigh. A ChloraPrep and sterile drape of the left lower extremity was performed. The left leg was elevated, exsanguinated and the tourniquet was inflated to 300 mmHg pressure. An anterior longitudinal midline incision was made over the anterior surface of the left knee. The incision was deepened through a medial parapatellar incision. Osteophytes from the distal femur were removed with a bone rongeur. A boat pilot hole was then drilled in the distal femur and an intramedullary zack was inserted. The patient had a bone infarct versus an enchondroma of the distal femur and the intramedullary zack was placed through this in the intramedullary aspect of the femur. Using a 5-degree cutting angle, a distal femoral cutting guide was assembled and a distal femoral osteotomy was completed. The distal femur was sized to a 65 mm femoral component, a 4-way cutting block was assembled. Anterior, posterior and chamfer cuts of the distal femur were made. The tibia was subluxed anteriorly. Remnants of the medial and lateral menisci as well as the anterior cruciate ligament were excised. A boat pilot hole was then drilled in the proximal tibia. An intramedullary zack was inserted measuring off the exposed bone over the proximal medial tibia. A proximal tibial cutting guide was assembled and proximal tibial osteotomy was completed. Additional subperiosteal dissection was performed over the proximal medial tibia. The posterior aspect of was resected through a cutting guide and drilled through a drill guide. Provisional components were inserted. Knee was cycled through a range of motion. Rotation of the tibial component was noted and marked on the proximal tibia. The proximal tibial bone was extremely soft and the knee was taken through range of motion with a 10 mm spacer, although this did demonstrate a very slight degree of varus valgus instability. Rotation of the tibial component was noted and marked on the proximal tibia. The proximal tibia was then broached to accept the I-beam stem component. the pins could be inserted by hand without using a mallet to stabilize the broach guide. The bony surfaces were irrigated extensively with normal saline solution. PALACOS bone cement was mixed. This was pressurized in the proximal tibia and the tibial component was gently impacted into position. Excess of cement was removed. The femoral component was press fit in place. The knee was taken into full extension with a provisional 10 mm tibial bearing implant. The patellar component was cemented in place and held with a clamp. Excessive cement was removed. The tourniquet was released. Hemostasis was obtained with electrocautery. The cement was allowed to set. The knee was then retested in flexion and extension and was found to be stable with full extension with a 13 mm spacer with full flexion and no instability and full flexion and mid range flexion. A 13 mm anterior stabilized tibial bearing implant was then inserted and locked anteriorly with a locking bar. The knee again was cycled through a range of motion with full stability noted. No evidence of mid range instability. The knee was additionally irrigated with normal saline solution. The knee was placed in 90 degrees of flexion. The medial retinaculum was closed with multiple interrupted ictbpa-sn-olgwq sutures of #1 Vicryl, reinforced with a running suture of #1 Stratafix. The subcutaneous tissues were closed in layers with 0 and 2-0 Vicryl suture. The skin was closed with stainless steel jose and Adaptic Neosporin bulky dressing was placed about the left knee. The patient was awakened and was transported to postop recovery with anesthesia personnel present in satisfactory condition. Job ID: [id number] DocumentID: [id number] Dictated Date: 11/16/2019 12:49:10 Tube Bender Hand Date: 11/16/2019 13:15:40 Dictated By: BELKIS HARKINS DO
--- NOTE | 2019-11-16 13:52 | Diagnostic Imaging Report ---
INDICATION: Osteoarthritis. Two views were obtained. FINDINGS: There are stable postsurgical changes in the left knee arthroplasty. Hardware is in satisfactory position. There is no loosening. Soft tissues are unremarkable. There is some chondroid matrix in the distal left femoral diaphysis. IMPRESSION: Stable left knee arthroplasty. Chondroid matrix in the distal femoral diaphysis suspect for underlying enchondroma. Recommend clinical correlation and follow-up imaging as clinically warranted. Dictated by: Dictated on workstation # [id number]
[2019-11-16] MEDS ORDERED: diphenhydrAMINE 50 MG/ML INJ (BENADRYL) IV PRN (14:53)
[2019-11-16] MEDS ORDERED: MAGNESIUM CITRATE 300 ML BTL PO NR (14:56)
[2019-11-16] MEDS ORDERED: morphine INJ 4 MG/ML 1 ML (VIAL/SYRINGE) IV PRN (15:00)
[2019-11-16] MEDS: HYDROcodone/APAP 10 MG/325 MG (LORTAB) TAB PO PRN (16:21)
[2019-11-16] MEDS: GABAPENTIN 100 MG (NEURONTIN) CAP PO SCH ×2 (16:25→22:10)
[2019-11-16] MEDS: KCL 20 MEQ TAB (K-DUR) PO SCH (16:26)
--- NOTE | 2019-11-16 17:11 | Physical Therapy Evaluation ---
PT Evaluation-General Medical Diagnosis Admission Date Nov 16, 2019 at 08:01 Medical Diagnosis: left TKA Onset Date: Nov 16, 2019 Therapy Diagnosis Therapy Diagnosis: impaired mobility, strength, endurance, ROM Height/Weight Height (Feet): 5 Height (Inches): 7.00 Weight (Pounds): 159 Weight (Ounces): 8.0 Precautions Precautions/Isolations: Standard Precautions Weight Bear Status Right Lower Extremity: Right Full Weight Bearing Left Lower Extremity: Left Non Weight Bearing No weight bearing until 0800 on POD 1 after femoral nerve block on affected Referral Physician: David Kumari DO Reason for Referral: Evaluation/Treatment Medical History Pertinent Medical History: OA Social History Home: Single Level Current Living Status: Significant Other Entry Into Home: Stairs Without Railing PT Steps Into Home: 2 Prior Prior Level of Function SCALE: Activities may be completed with or without assistive devices. 3-Swxnuayjtt-ldjceac completes the activity by him/herself with no assistance from a helper. 5-Set-up or Clean-up Assistance-helper sets up or cleans up; patient completes activity. [place] assists only prior to or following the activity. 4-Supervision or Touching Assistance-helper provides verbal cues and/or touching/steadying and/or contact guard assistance as patient completes activity. Assistance may be provided throughout the activity or intermittently. 3-Partial/Moderate Assistance-helper does LESS THAN HALF the effort. [place] lifts, holds or supports trunk or limbs, but provides less than half the effort. 2-Substantial/Maximal Assistance-helper does MORE THAN HALF the effort. [place] lifts or holds trunk or limbs and provides more than half the effort. 9-Kzevcohuj-kcrcnl does ALL the effort. Patient does none of the effort to complete the activity. Or, the assistance of 2 or more helpers is required for the patient to complete the activity. If activity was not attempted, code reason: 7-Patient Refused. 9-Not Applicable-not attempted and the patient did not perform the activity before the current illness, exacerbation or injury. 10-Not Attempted due to Environmental Limitations-(lack of equipment, weather restraints, etc.). 88-Not Attempted due to Medical Conditions or Safety Concerns. Bed Mobility: 6 Transfers (B,C,W/C): 6 Gait: 6 Indoor Mobility (Ambulation): Independent used a hemiwalker previously PT Evaluation-Current Subjective Patient in bed pre tx, agrees to PT, has 3-4/10 pain in left knee. Evaluation order is for tomorrow but will be doing it today per direct doctor request. Pt/Family Goals to be independent at home Objective Patient Orientation: Person, Place Attachments: SCD's, Polar Pack, IV ROM/Strength ROM Lower Extremities left knee flexion 30 degrees, extension +3 degrees Sensory Hearing: Functional Sensation Right Lower Extremit: Intact Sensation Left Lower Extremity: Intact Transfers Roll Left to Right (QC): 3 Sit to Lying (QC): 3 Lying to Sitting/Side of Bed(Q: 3 Sit to Stand (QC): 3 Patient was able to stand at the edge of the bed, knee rosmery, would like to transfer to a commode, does so with min assist, is able to wipe herself (family is there to help if needed), transfers back to the bed with mod assist, lays back down with min assist. Balance Sitting Static: Fair Sitting Dynamic: Fair Standing Static: Poor Standing Dynamic: Poor Assessment/Needs Patient has impaired mobility, strength, endurance, balance, ROM, left knee rosmery, cannot ambulate at this time. Rehab Potential: Fair PT Design Center Consultant Goals Design Center Consultant Goals PT Design Center Consultant Goals Time Frame: Nov 23, 2019 Roll Left & Right (QC): 6 Sit to Lying (QC): 6 Lying-Sitting on Side/Bed(QC): 6 Sit to Stand (QC): 4 Chair/Kuh-ph-Wlqed Xfer(QC): 4 Walk 10 feet (QC): 4 Walk 50ft with 2 Turns (QC): 4 PT Plan Problem List Problem List: Activity Tolerance, Functional Strength, Safety, Balance, Gait, Transfer, Bed Mobility, ROM Treatment/Plan Treatment Plan: Continue Plan of Care Treatment Plan: Bed Mobility, Education, Functional Activity Melissa, Functional Strength, Gait, Safety, Therapeutic Exercise, Transfers Treatment Duration: Nov 23, 2019 Frequency: 11 times per week Estimated Hrs Per Day: .25 hour per day Patient and/or Family Agrees t: Yes Safety Risks/Education Patient Education: Transfer Techniques, Correct Positioning, Safety Issues Teaching Recipient: Patient Teaching Methods: Demonstration, Discussion Response to Teaching: Reinforcement Needed Discharge Recommendations Plan Patient will perform bed mobility and transfer training, balance and endurance training, functional strengthening, stair training, gait training, and education, to improve functional mobility and independence at home. Time/GCodes Time In: 1626 Time Out: 1650 Total Billed Treatment Time: 24 Total Billed Treatment 1 visit EVL 24' ASHLEY TIRADO PT Nov 16, 2019 17:11
[2019-11-16] MEDS: ceFAZolin 2 GM/50 ML NS 50 ML IV SCH (18:31)
[2019-11-16] MEDS: ACETAMINOPHEN 500 MG TAB (TYLENOL) PO SCH (19:53)
[2019-11-16] MEDS: IBUPROFEN 600 MG (MOTRIN) TAB PO SCH (19:53)
[2019-11-16] MEDS: RIVAROXABAN 20 MG TABLET (XARELTO) PO SCH (22:10)
[2019-11-16] MEDS: CARVEDILOL 3.125 MG (COREG) TABLET PO SCH (22:10)
[2019-11-16] MEDS: SENNA W/DOCUSATE (SENOKOT S) TABLET PO SCH (22:10)
[2019-11-17] VITALS: BP 99/63
[2019-11-17] MEDS: ceFAZolin 2 GM/50 ML NS 50 ML IV SCH (03:00)
[2019-11-17 04:00] VITALS: BP 94/57
[2019-11-17 05:19] LABS: HEMOGLOBIN 9.8 G/DL (11.5-16.0); MEAN PLATELET VOLUME 11.8 FL (7.4-10.4); RED CELL DISTRIBUTION WIDTH 13.5 % (10.0-14.5); WHITE BLOOD COUNT 9.3 10^3/uL (4.3-11.0)
[2019-11-17] MEDS: ACETAMINOPHEN 500 MG TAB (TYLENOL) PO SCH ×3 (05:25→11:20)
[2019-11-17] MEDS: GABAPENTIN 100 MG (NEURONTIN) CAP PO SCH ×3 (05:26→20:40)
[2019-11-17] MEDS: KCL 20 MEQ TAB (K-DUR) PO SCH ×2 (05:26→17:25)
[2019-11-17] MEDS: IBUPROFEN 600 MG (MOTRIN) TAB PO SCH ×2 (05:26)
[2019-11-17 05:51] LABS: CALCIUM 8.4 MG/DL (8.5-10.1); CREATININE SERUM 0.96 MG/DL (0.60-1.30); POTASSIUM 4.4 MMOL/L (3.6-5.0)
--- NOTE | 2019-11-17 06:32 | Progress Note ---
Subjective Date Seen by a Provider: Nov 17, 2019 Time Seen by a Provider: 06:30 Subjective/Events-last exam POD 1 s/p left TKA, no complaints. Pain controlled. Objective Exam Vital Signs Date Time Temp Pulse Resp B/P (MAP) Pulse Ox O2 Delivery O2 Flow Rate FiO2 11/17/19 00:00 36.5 71 18 99/63 (75) 92 Room Air 11/16/19 20:00 36.3 74 18 99/58 (72) 95 Room Air 11/16/19 19:40 95 Room Air 11/16/19 16:16 Room Air 11/16/19 16:00 36.8 74 12 108/70 (83) 95 Room Air 11/16/19 14:00 Room Air 11/16/19 13:45 Room Air 11/16/19 13:45 36.7 12 131/75 (93) 94 Room Air 11/16/19 13:40 12 131/75 (93) 94 Room Air 11/16/19 13:40 Room Air 11/16/19 13:30 12 128/78 (95) 94 Room Air 11/16/19 13:25 Room Air 11/16/19 13:20 12 141/81 (101) 97 Room Air 11/16/19 13:15 Room Air 11/16/19 13:10 10 140/87 (104) 100 Room Air 11/16/19 13:00 12 145/95 (112) 100 OxyMask 4 11/16/19 13:00 OxyMask 8 11/16/19 12:50 22 136/79 (98) 100 OxyMask 8 11/16/19 12:45 OxyMask 10 11/16/19 12:45 37.2 18 107/66 (80) 96 OxyMask 10 11/16/19 12:00 36.0 62 18 146/75 (98) 92 Room Air 11/16/19 08:15 100 Room Air 11/16/19 08:15 36.3 65 16 145/76 100 Room Air I & O 11/17/19 07:00 Intake Total 1650 ml Output Total 100 ml Balance 1550 ml Capillary Refill : Less Than 3 SecondsLess Than 3 Seconds General Appearance: No Apparent Distress Gastrointestinal: non tender, soft Extremity: Normal Capillary Refill, Normal Inspection Neurologic/Psychiatric: Alert, Oriented x3, No Motor/Sensory Deficits, Normal Mood/Affect Skin: Normal Color, Warm/Dry (dressing left knee CDI) Results Lab Laboratory Tests 11/16/19 09:10: Prothrombin Time 14.2, INR Comment 1.1 11/17/19 04:40: White Blood Count 9.3, Red Blood Count 3.14L, Hemoglobin 9.8L, Hematocrit 30L, Mean Corpuscular Volume 95, Mean Corpuscular Hemoglobin 31, Mean Corpuscular Hemoglobin Concent 33, Red Cell Distribution Width 13.5, Platelet Count 109L, Mean Platelet Volume 11.8H, Sodium Level 135, Potassium Level 4.4, Chloride Level 104, Carbon Dioxide Level 20L, Anion Gap 11, Blood Urea Nitrogen 15, Creatinine 0.96, Estimat Glomerular Filtration Rate 56, BUN/Creatinine Ratio 16, Glucose Level 129H, Calcium Level 8.4L Assessment/Plan Assessment/Plan Assess & Plan/Chief Complaint s/p left TKA P: Start PT and CPM machine today Clinical Quality Measures DVT/VTE Risk/Contraindication: Risk Factor Score Per Nursin RFS Level Per Nursing on Admit: 4+=Very High RAYMON EDUARDO APRN Nov 17, 2019 06:32
[2019-11-17 08:00] VITALS: BP 97/53
[2019-11-17] MEDS: D5 1/2 NS 1000 ML IV SOLUTION 1,000 ML IV SCH ×2 (08:22→23:55)
[2019-11-17] MEDS: PANTOPRAZOLE 40 MG (PROTONIX) TAB PO SCH (08:36)
[2019-11-17] MEDS: LEVOTHYROXINE 50 MCG (LEVOTHROID) TAB PO SCH (08:36)
[2019-11-17] MEDS: LORATADINE (CLARITIN) 10 MG TAB PO SCH (08:36)
[2019-11-17] MEDS: CYANOCOBALAMIN 1,000 MCG (VITAMIN B-12) TABLET PO SCH (08:36)
[2019-11-17] MEDS: HYDROcodone/APAP 10 MG/325 MG (LORTAB) TAB PO PRN ×3 (08:37→23:49)
[2019-11-17] MEDS: FUROSEMIDE 20 MG (LASIX) TAB PO SCH (08:37)
[2019-11-17] MEDS ORDERED: NON-FORMULARY MEDICATION 1 EA EA (Ubidecarenone (Coq-10) 100 MG) PO SCH (09:00)
[2019-11-17] MEDS ORDERED: DOCUSATE SODIUM 100 MG (COLACE) CAP PO PRN (09:00)
--- NOTE | 2019-11-17 09:03 | Occupational Therapy Eval ---
OT Evaluation-General/PLF Medical Diagnosis Admission Date Nov 16, 2019 at 08:01 Medical Diagnosis: left TKA Onset Date: Nov 16, 2019 Therapy Diagnosis Therapy Diagnosis: Decreased ADL skills Height/Weight Height (Feet): 5 Height (Inches): 7.00 Weight (Pounds): 159 Weight (Ounces): 8.0 Precautions Precautions/Isolations: Standard Precautions Safety Interventions: Reorient-PRN Weight Bear Status Weight Bearing Restriction: Weight Bearing/Tolerated Referral Physician: David Kumari DO Referral Reason: Activity Tolerance, Self Care, Evaluation/Treatment, Strengthening/ROM Medical History Pertinent Medical History: OA Additional Medical History Dislocated right elbow, neuropathy bilateral feet. Current History Elective left TKR Reviewed History: Yes Social History Home: Single Level Current Living Status: Significant Other Entry Into Home: Stairs Without Railing Steps Into Home: 2 ADL-Prior Level of Function SCALE: Activities may be completed with or without assistive devices. 8-Fbeclyvcbx-quzaenj completes the activity by him/herself with no assistance from a helper. 5-Set-up or Clean-up Assistance-helper sets up or cleans up; patient completes activity. [place] assists only prior to or following the activity. 4-Supervision or Touching Assistance-helper provides verbal cues and/or touching/steadying and/or contact guard assistance as patient completes activity. Assistance may be provided throughout the activity or intermittently. 3-Partial/Moderate Assistance-helper does LESS THAN HALF the effort. [place] lifts, holds or supports trunk or limbs, but provides less than half the effort. 2-Substantial/Maximal Assistance-helper does MORE THAN HALF the effort. [place] l ifts or holds trunk or limbs and provides more than half the effort. 9-Rypfpeykg-iwdxye does ALL the effort. Patient does none of the effort to complete the activity. Or, the assistance of 2 or more helpers is required for the patient to complete the activity. If activity was not attempted, code reason: 7-Patient Refused. 9-Not Applicable-not attempted and the patient did not perform the activity before the current illness, exacerbation or injury. 10-Not Attempted due to Environmental Limitations-(lack of equipment, weather restraints, etc.). 88-Not Attempted due to Medical Conditions or Safety Concerns. ADL PLOF Comments Pt. states that she is independent with daily skills. States that she assists her spouse at home. Self Care: Independent Functional Cognition: Independent DME/Equipment Comments Pt. uses a quad cane at home to ambulate. Does not use full walker as she dislocated right elbow in January, and has residual pain at times from it. OT Current Status Subjective No pain reported. Pt. states, "my leg is shaky." Appearance Pt. in bed. Alert and oriented. Mental Status/Objective Patient Orientation: Person, Place Attachments: IV Current Upper Extremity ROM Limited in right elbow. Full ROM in shoulders. ADL-Treatment Eating (QC): 6 (Pt. eating donut when OT entered room.) On/Off Footwear (QC): 2 Toileting Hygiene (QC): 3 (Pt. requires assistance to pull down underwear, but is able to cleanse peria area after urination and able to don underwear over hips.) Other Treatments Pt. is agreeable to treatment. Transferred supine-sit with CGA. Stood with min assist and transferred to BSC. Pt. required increased time to urinate and cleanse self. Stood with min assist and walker. Pt. encouraged to balance self and pull underwear over hips. Pt. transferred back to BSC, (with lid down), as PT waiting to assess pt. and don CPM. Pt. unable to reach feet at this time and states that she was having difficulty prior to that. OT will bring in AE tomorrow and educate pt. on that. All needs met and PT taking over session at this time. Education OT Patient Education: Correct positioning, Modified ADL techniques, Progress toward Goal/Update tx plan, Purpose of tx/functional activities, Reviewed precautions, Rehab process, Transfer techniques Teaching Recipient: Patient Teaching Methods: Demonstration, Discussion Response to Teaching: Verbalize Understanding, Return Demonstration OT Short Term Goals Short Term Goals Time Frame: Nov 24, 2019 Eatin Oral hygiene: 5 Toileting hygiene: 5 Shower/bathe self: 4 Upper body dressin Lower body dressin Putting on/taking off footwear: 4 OT Correction Goals Correction Goals Time Frame: Dec 01, 2019 Eating (QC): 6 Oral Hygiene (QC): 6 Toileting Hygiene (QC): 6 Shower/Bathe Self (QC): 5 Upper Body Dressing (QC): 6 Lower Body Dressing (QC): 6 On/Off Footwear (QC): 6 Additional Goals: 1-Demonstrate ADL Tasks, 2-Verbalize Understanding, 3- ImproveStrength/Melissa 1=Demonstrate adherence to instructed precautions during ADL tasks. 2=Patient will verbalize/demonstrate understanding of assistive devices/modifications for ADL. 3=Patient will improve strength/tolerance for activity to enable patient to perform ADL's. OT Education/Plan Problem List/Assessment Assessment: Decreased Activ Tolerance, Dependent Transfers, Impaired Funct Bal ance, Impaired I ADL's, Impaired Self-Care Skills, Restricted Funct UE ROM Discharge Recommendations Plan/Recommendations: Continue POC Therapy Discharge Recommendati: Post Acute OT Equpiment Recommendations-D/C: Hip Kit Treatment Plan/Plan of Care Treatment,Training & Education: Yes Patient would benefit from OT for education, treatment and training to promote independence in ADL's, mobility, safety and/or upper extremity function for ADL's. Plan of Care: ADL Retraining, Functional Mobility, UE Funct Exercise/Act Treatment Duration: Dec 01, 2019 Frequency: At least 5 of 7 days/Wk (IRF) Estimated Hrs Per Day: .5 hour per day Agreement: Yes Rehab Potential: Fair Time/GCodes Start Time: 08:30 Stop Time: 08:55 Total Time Billed (hr/min): 25 Billed Treatment Time 1, EVH x 10minutes, ADL x 15minutes GABO PATEL OT Nov 17, 2019 09:03
--- NOTE | 2019-11-17 09:19 | Physical Therapy Daily Note ---
PT Daily Note-Current Subjective Patient on commode pre tx, got there with OT, PT will take over, has 6/10 pain in left leg. Appearance Patient in bed post tx with nurse call, phone, tray, all needs met. CPM donned and set to 50/-2 and fit to leg. Mental Status Patient Orientation: Person, Place, Situation Attachments: SCD's, Polar Pack, IV Transfers SCALE: Activities may be completed with or without assistive devices. 1-Xojgrbsvet-piprknb completes the activity by him/herself with no assistance from a helper. 5-Set-up or Clean-up Assistance-helper sets up or cleans up; patient completes activity. [place] assists only prior to or following the activity. 4-Supervision or Touching Assistance-helper provides verbal cues and/or touching/steadying and/or contact guard assistance as patient completes activity. Assistance may be provided throughout the activity or intermittently. 3-Partial/Moderate Assistance-helper does LESS THAN HALF the effort. [place] lifts, holds or supports trunk or limbs, but provides less than half the effort. 2-Substantial/Maximal Assistance-helper does MORE THAN HALF the effort. [place] lifts or holds trunk or limbs and provides more than half the effort. 8-Ioxgpojmx-servdr does ALL the effort. Patient does none of the effort to complete the activity. Or, the assistance of 2 or more helpers is required for the patient to complete the activity. If activity was not attempted, code reason: 7-Patient Refused. 9-Not Applicable-not attempted and the patient did not perform the activity before the current illness, exacerbation or injury. 10-Not Attempted due to Environmental Limitations-(lack of equipment, weather restraints, etc.). 88-Not Attempted due to Medical Conditions or Safety Concerns. Roll Left & Right (QC): 3 Sit to Lying (QC): 3 Sit to Stand (QC): 4 Chair/Gwj-ay-Ezcsv Xfer(QC): 4 CGA for sit to stand and transfer. Patient has trouble bearing weight through left leg due to pain. Weight Bearing Right Lower Extremity: Right Full Weight Bearing Left Lower Extremity: Left Non Weight Bearing No weight bearing until 0800 on POD 1 after femoral nerve block on affected Gait Training Distance: 3' Gait Assistive Device: FWW Antalgic, very little weight on left leg due to pain, poor heel strike. Exercises Supine Ex: Ankle pumps, Quad Set, Heel Slides, Short Arc Quads, Straight leg raise Supine Reps: 10 Treatments bed mobility and transfers, ambulation, LE exercise. Patient was able to flex left knee to 60 degrees, ext +5 degrees Assessment Current Status: Poor Progress Poor weight bearing on left leg. PT Obiee Architect Goals Obiee Architect Goals PT Mcfp Goals Time Frame: Nov 23, 2019 Roll Left & Right (QC): 6 Sit to Lying (QC): 6 Lying-Sitting on Side/Bed(QC): 6 Sit to Stand (QC): 4 Chair/Diu-dr-Uugnf Xfer(QC): 4 Walk 10 feet (QC): 4 Walk 50ft with 2 Turns (QC): 4 PT Plan Problem List Problem List: Activity Tolerance, Functional Strength, Safety, Balance, Gait, Transfer, Bed Mobility, ROM Treatment/Plan Treatment Plan: Continue Plan of Care Treatment Plan: Bed Mobility, Education, Functional Activity Melissa, Functional Strength, Gait, Safety, Therapeutic Exercise, Transfers Treatment Duration: Nov 23, 2019 Frequency: 11 times per week Estimated Hrs Per Day: .25 hour per day Patient and/or Family Agrees t: Yes Safety Risks/Education Patient Education: Gait Training, Transfer Techniques, Correct Positioning, Safety Issues Teaching Recipient: Patient Teaching Methods: Demonstration, Discussion Response to Teaching: Reinforcement Needed Time/GCodes Time In: 851 Time Out: 906 Total Billed Treatment Time: 15 Total Billed Treatment 1 visit FA 15' ASHLEY TIRADO PT Nov 17, 2019 09:19
[2019-11-17] MEDS: CARVEDILOL 3.125 MG (COREG) TABLET PO SCH ×2 (10:55→20:40)
[2019-11-17] MEDS: CALCITRIOL 0.25 MCG (ROCALTROL) CAPSULE PO SCH (11:19)
--- NOTE | 2019-11-17 11:46 | NUR ---
RD ASSESSMENT PMHx: hypercholesterolemia; HTN; afib; hypothyroidism; chronic constipation; GERD PT INTERACTION: Pt was awake and pleasant during nutrition assessment. Pt states current appetite is "getting better" and had been poor prior to today. Note PO intake of "bites" x1meal, per chart review. Pt states following a regular diet at home and has no issues with chewing/swallowing food. Pt states recent issues with n/v. Note 3 episodes of emesis on 11/16 per chart review. Pt states recent issues with constipation, and that her last BM was 2d ago. Note pt currently on bowel regimen of senna HS, per chart review. Pt states intentional 48# wt loss x18mon, in an effort to lose weight. Note unable to determine recent wt hx, per chart review. ABNORMAL NUTRITION-RELATED LAB VALUES LOW: Ca 8.4 HIGH: glu 129 Est. kcal needs: 2866-0436 kcal | 25-30 kcal/kg Est. Pro needs: 59-74 g Pro | 0.8-1.0 g Pro/kg PES STATEMENT: Inadequate oral intake (NI-2.1) related to loss of appetite | nausea | vomiting | constipation as evidenced by pt interview | PO intake of "bites" x1meal INTERVENTION: Continue with current diet order of Regular diet. Pt may benefit from nutrition supplementation if PO intake remains low. Will continue to follow and reassess as pt needs and status change. MONITOR/EVALUATE: PO Intake; Plan of Care; Hydration Status; Weight Status; Lab Values Nirmala Davies, MS, RD, LD
--- NOTE | 2019-11-17 11:48 | Anesthesia-General Post-Op ---
General Patient Condition Mental Status/LOC: Same as Preop Cardiovascular: Satisfactory Nausea/Vomiting: Absent Respiratory: Satisfactory Pain: Controlled Complications: Absent Post Op Complications Complications None Follow Up Care/Instructions Patient Instructions None needed. Anesthesia/Patient Condition Patient Condition Patient is doing well, no complaints, stable vital signs, no apparent adverse anesthesia problems. She had some N/V yesterday which she states is typical for her post-anesthesia, better today. She states her femoral nerve block is starting to wear off, but her minimal pain is controlled with Rx. FITO DURANT DO Nov 17, 2019 11:48
[2019-11-17 12:00] VITALS: BP 98/55
[2019-11-17] MEDS ORDERED: IBUPROFEN 600 MG (MOTRIN) TAB PO SCH (12:00)
[2019-11-17] MEDS ORDERED: IBUPROFEN TABLET 200 MG TAB PO SCH (12:38)
[2019-11-17] MEDS: IBUPROFEN TABLET 200 MG TAB PO SCH ×3 (13:06→23:49)
--- NOTE | 2019-11-17 13:27 | NUR ---
DR. TONG CONSULTED AT THIS TIME.
--- NOTE | 2019-11-17 14:43 | Physical Therapy Daily Note ---
PT Daily Note-Current Subjective Pt. sitting up in chair with nurse and Dr and daughter present. Pts daughter anxious for her to ambulate. 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 Pt. states near end of rx that she rates her pain at 5/10. Pt. also states " it really feels alot better being up on it" Pain Numeric Pain Scale: 5-Moderate Pain Location: Left Location Body Site: Knee Pain Description: Ache Mental Status Patient Orientation: Normal For Age fresh ice was dispensed and put in polar pack for after rx Transfers SCALE: Activities may be completed with or without assistive devices. 9-Qcbgczwbow-xojabjv completes the activity by him/herself with no assistance from a helper. 5-Set-up or Clean-up Assistance-helper sets up or cleans up; patient completes activity. [place] assists only prior to or following the activity. 4-Supervision or Touching Assistance-helper provides verbal cues and/or touching/steadying and/or contact guard assistance as patient completes activity. Assistance may be provided throughout the activity or intermittently. 3-Partial/Moderate Assistance-helper does LESS THAN HALF the effort. [place] lifts, holds or supports trunk or limbs, but provides less than half the effort. 2-Substantial/Maximal Assistance-helper does MORE THAN HALF the effort. [place] lifts or holds trunk or limbs and provides more than half the effort. 6-Lfafosrjw-yhqnmr does ALL the effort. Patient does none of the effort to complete the activity. Or, the assistance of 2 or more helpers is required for the patient to complete the activity. If activity was not attempted, code reason: 7-Patient Refused. 9-Not Applicable-not attempted and the patient did not perform the activity before the current illness, exacerbation or injury. 10-Not Attempted due to Environmental Limitations-(lack of equipment, weather restraints, etc.). 88-Not Attempted due to Medical Conditions or Safety Concerns. sit to stand several times with CGA and use of UEs on arms of chair instruction for stability and safety etc. pt. follows well with instruction Weight Bearing Right Lower Extremity: Right Full Weight Bearing Left Lower Extremity: Left Non Weight Bearing No weight bearing until 0800 on POD 1 after femoral nerve block on affected Gait Training Does the Patient Walk?: Yes Walk 10 feet (QC): 4 Gait Persons Needed: 1 Gait Assistive Device: FWW pt. was instructed in sequence and wt bearing on UEs to relieve TKR . Pt. had a few steps requiring min assist for stability as she was wobbly , this improved as did sequence of gait . pt. walked 15 ft x4 and 10 ft x2 CGA to min assist. pt requested BSC at end of Rx for BM. Nursing present to assist pt. into bed after Rx. Exercises Seated Therapy Exercises: Ankle pumps, Sit to stand, Long arc quads, Hip flexion Seated Reps: 15 pt. needed assist for LAQ, was unable to lift for knee extension but was able to maintain it if lifted for her Assessment Current Status: Good Progress improved gait and sequence with FWW PT Weaver Hand Loom Goals Weaver Hand Loom Goals PT Weaver Hand Loom Goals Time Frame: Nov 23, 2019 Roll Left & Right (QC): 6 Sit to Lying (QC): 6 Lying-Sitting on Side/Bed(QC): 6 Sit to Stand (QC): 4 Chair/Zpu-tr-Avitj Xfer(QC): 4 Walk 10 feet (QC): 4 Walk 50ft with 2 Turns (QC): 4 PT Plan Treatment/Plan Treatment Plan: Continue Plan of Care Treatment Plan: Bed Mobility, Education, Functional Activity Melissa, Functional Strength, Gait, Safety, Therapeutic Exercise, Transfers Treatment Duration: Nov 23, 2019 Frequency: 11 times per week Estimated Hrs Per Day: .25 hour per day Patient and/or Family Agrees t: Yes Safety Risks/Education Patient Education: Gait Training, Transfer Techniques, Correct Positioning, Dis ease Process, Safety Issues Teaching Recipient: Patient Teaching Methods: Demonstration, Discussion Response to Teaching: Verbalize Understanding, Return Demonstration, Reinforcement Needed Time/GCodes Time In: 1400 Time Out: 1435 Total Billed Treatment Time: 35 Total Billed Treatment 1,GT20m,EX15m DEB SPRINGER WAFER FAB OPERATOR Nov 17, 2019 14:43
--- NOTE | 2019-11-17 15:24 | NUR ---
Discharge Planning. Pt plans to be discharged to her home in [place]. She is and will be present in the home and a daughter plans to stay with her and assist till the week-end. She has a front Wheel walker at home and chose [facility] for her physical therapy. Faxed preliminary information to [facility] pending physician orders. She has several close family members who are planning to assist her intermittently upon discharge.
[2019-11-17 16:00] VITALS: BP 105/56
[2019-11-17] MEDS ORDERED: ACETAMINOPHEN 500 MG TAB (TYLENOL) PO PRN ×2 (16:00→16:45)
[2019-11-17 20:30] VITALS: BP 108/60
[2019-11-17] MEDS: SENNA W/DOCUSATE (SENOKOT S) TABLET PO SCH ×2 (20:40→20:49)
[2019-11-17] MEDS: RIVAROXABAN 20 MG TABLET (XARELTO) PO SCH (20:40)
[2019-11-18 00:36] VITALS: BP 108/56
[2019-11-18] MEDS: HYDROcodone/APAP 10 MG/325 MG (LORTAB) TAB PO PRN ×4 (03:58→19:07)
[2019-11-18 04:00] VITALS: BP 102/54
[2019-11-18 05:19] LABS: BASOPHILS % (AUTO) 0 % (0-10); EOSINOPHILS # (AUTO) 0.1 10^3/uL (0.0-0.3); EOSINOPHILS % (AUTO) 2 % (0-10); HEMATOCRIT 27 % (35-52); HEMOGLOBIN 8.7 G/DL (11.5-16.0); LYMPHOCYTES % (AUTO) 17 % (12-44); MEAN CORPUSCULAR HEMOGLOBIN 31 PG (25-34); MEAN CORPUSCULAR HGB CONC 32 G/DL (32-36); MEAN CORPUSCULAR VOLUME 95 FL (80-99); MEAN PLATELET VOLUME 11.5 FL (7.4-10.4); MONOCYTES # (AUTO) 0.8 X 10^3 (0.0-1.0); MONOCYTES % (AUTO) 15 % (0-12); NEUTROPHILS # (AUTO) 3.7 X 10^3 (1.8-7.8); NEUTROPHILS % (AUTO) 66 % (42-75); PLATELET COUNT 98 10^3/uL (130-400); RED CELL DISTRIBUTION WIDTH 13.9 % (10.0-14.5); WHITE BLOOD COUNT 5.6 10^3/uL (4.3-11.0)
[2019-11-18 05:42] LABS: ALBUMIN 3.1 GM/DL (3.2-4.5); BILIRUBIN,TOTAL 0.5 MG/DL (0.1-1.0); CALCIUM 7.9 MG/DL (8.5-10.1); POTASSIUM 4.3 MMOL/L (3.6-5.0)
[2019-11-18] MEDS: GABAPENTIN 100 MG (NEURONTIN) CAP PO SCH ×3 (05:42→22:04)
[2019-11-18] MEDS: KCL 20 MEQ TAB (K-DUR) PO SCH ×2 (05:42→17:15)
[2019-11-18] MEDS: IBUPROFEN TABLET 200 MG TAB PO SCH ×3 (05:43→17:15)
[2019-11-18 08:00] VITALS: BP 111/61
[2019-11-18] MEDS: FUROSEMIDE 20 MG (LASIX) TAB PO SCH (08:37)
[2019-11-18] MEDS: LEVOTHYROXINE 50 MCG (LEVOTHROID) TAB PO SCH (08:37)
[2019-11-18] MEDS: CYANOCOBALAMIN 1,000 MCG (VITAMIN B-12) TABLET PO SCH (08:37)
[2019-11-18] MEDS: CARVEDILOL 3.125 MG (COREG) TABLET PO SCH ×2 (08:37→22:04)
[2019-11-18] MEDS: LORATADINE (CLARITIN) 10 MG TAB PO SCH (08:37)
[2019-11-18] MEDS: ASPIRIN 81 MG CHEW (CHILDREN'S ASA) PO SCH (08:37)
[2019-11-18] MEDS: PANTOPRAZOLE 40 MG (PROTONIX) TAB PO SCH (08:37)
--- NOTE | 2019-11-18 10:26 | Physical Therapy Daily Note ---
PT Daily Note-Current Subjective Patient is agreeable to therapy at this time. Pain Numeric Pain Scale: 7 Location: Left Location Body Site: Knee Appearance Patient left in bathroom on shower bench with CALLISTHENICS INSTRUCTOR for shower. Daughter also present. Mental Status Patient Orientation: Normal For Age Attachments: Polar Pack, IV Transfers SCALE: Activities may be completed with or without assistive devices. 9-Suhsjxwclc-pddfwlo completes the activity by him/herself with no assistance from a helper. 5-Set-up or Clean-up Assistance-helper sets up or cleans up; patient completes activity. [place] assists only prior to or following the activity. 4-Supervision or Touching Assistance-helper provides verbal cues and/or touching/steadying and/or contact guard assistance as patient completes activity. Assistance may be provided throughout the activity or intermittently. 3-Partial/Moderate Assistance-helper does LESS THAN HALF the effort. [place] lifts, holds or supports trunk or limbs, but provides less than half the effort. 2-Substantial/Maximal Assistance-helper does MORE THAN HALF the effort. [place] lifts or holds trunk or limbs and provides more than half the effort. 9-Bahzbaxub-tbneih does ALL the effort. Patient does none of the effort to complete the activity. Or, the assistance of 2 or more helpers is required for the patient to complete the activity. If activity was not attempted, code reason: 7-Patient Refused. 9-Not Applicable-not attempted and the patient did not perform the activity before the current illness, exacerbation or injury. 10-Not Attempted due to Environmental Limitations-(lack of equipment, weather restraints, etc.). 88-Not Attempted due to Medical Conditions or Safety Concerns. Roll Left & Right (QC): 6 Lying to Sitting/Side of Bed(Q: 6 Sit to Stand (QC): 4 Chair/Ysb-xe-Diqed Xfer(QC): 4 Weight Bearing Right Lower Extremity: Right Full Weight Bearing Left Lower Extremity: Left Non Weight Bearing No weight bearing until 0800 on POD 1 after femoral nerve block on affected Gait Training Does the Patient Walk?: Yes Distance: 150' Walk 10 feet (QC): 4 Walk 50 ft with 2 Turns(QC): 4 Walk 150 ft (QC): 4 Gait Persons Needed: 1 Gait Assistive Device: FWW CGA for safety. Patient is steady during gait. Exercises Supine Ex: Ankle pumps, Quad Set, Heel Slides, Short Arc Quads, Straight leg raise Supine Reps: 10 (LLE only) Treatments LLE exercises, ambulation, bed mobility, transfers. Assessment Current Status: Good Progress Patient tolerates exercises well and is able to perform all AROM except SLR with which she required assistance. Patient is steady during ambulation and beginning to walk with a more normal gait sequence. PT Skilled Nursing Goals Manufacturing Quality Technician Goals PT Skilled Nursing Goals Time Frame: Nov 23, 2019 Roll Left & Right (QC): 6 Sit to Lying (QC): 6 Lying-Sitting on Side/Bed(QC): 6 Sit to Stand (QC): 4 Chair/Mec-wg-Pwdkb Xfer(QC): 4 Walk 10 feet (QC): 4 Walk 50ft with 2 Turns (QC): 4 PT Plan Problem List Problem List: Activity Tolerance, Functional Strength, Safety, Balance, Gait, Transfer, Bed Mobility, ROM Treatment/Plan Treatment Plan: Continue Plan of Care Treatment Plan: Bed Mobility, Education, Functional Activity Melissa, Functional Strength, Gait, Safety, Therapeutic Exercise, Transfers Treatment Duration: Nov 23, 2019 Frequency: 11 times per week Estimated Hrs Per Day: .25 hour per day Patient and/or Family Agrees t: Yes Safety Risks/Education Patient Education: Gait Training, Transfer Techniques Teaching Recipient: Patient Teaching Methods: Discussion Response to Teaching: Reinforcement Needed Time/GCodes Time In: 826 Time Out: 849 Total Billed Treatment Time: 23 Total Billed Treatment 1 visit EX 10 GT 13 JYOTSNA SMITH PT Nov 18, 2019 10:26
--- NOTE | 2019-11-18 11:58 | Occupational Ther Daily Note ---
OT Current Status-Daily Note Subjective Pt sleeping in bed, woke easily to name. Pt's daughter present in room. Pt agrees to therapy. Mental Status/Objective Patient Orientation: Person, Place, Time, Situation Attachments: IV ADL-Treatment Pt requested to use bathroom. Pt able to complete bed mobility using HOB elevated and bed rails. Pt ambulated using FWW into bathroom, assist with IV pole only. Pt transferred to/off toilet, mod I. Completed toilet hygiene and clothing manipulation, mod I. Pt ambulated to sink with assist for IV pole only and stood at sink to wash hands. Pt ambulated to EOB to complete lower body dressing. Pt educated on AE for lower body dressing. Pt demonstrated understanding of dressing stick and sock aide to don/doff clothing, min A to doff socks due to knee. Pt able to use sock aide to don socks by self after education. Pt laid down in bed by self. After therapy, pt lying in bed with call light/phone in reach. All needs met in room. Daughter present in room. Therapy Code Descriptions/Definitions Functional [place] Measure: 0=Not Assessed/NA 4=Minimal Assistance 1=Total Assistance 5=Supervision or Setup 2=Maximal Assistance 6=Modified [place] 3=Moderate Assistance 7=Complete IndependenceSCALE: Activities may be completed with or without assistive devices. 1-Ceaofgbwrj-jvjcpwo completes the activity by him/herself with no assistance from a helper. 5-Set-up or Clean-up Assistance-helper sets up or cleans up; patient completes activity. [place] assists only prior to or following the activity. 4-Supervision or Touching Assistance-helper provides verbal cues and/or touching/steadying and/or contact guard assistance as patient completes activity. Assistance may be provided throughout the activity or intermittently. 3-Partial/Moderate Assistance-helper does LESS THAN HALF the effort. [place] lifts, holds or supports trunk or limbs, but provides less than half the effort. 2-Substantial/Maximal Assistance-helper does MORE THAN HALF the effort. Bath lifts or holds trunk or limbs and provides more than half the effort. 6-Trmyazcwp-ljzuep does ALL the effort. Patient does none of the effort to complete the activity. Or, the assistance of 2 or more helpers is required for the patient to complete the activity. If activity was not attempted, code reason: 7-Patient Refused. 9-Not Applicable-not attempted and the patient did not perform the activity before the current illness, exacerbation or injury. 10-Not Attempted due to Environmental Limitations-(lack of equipment, weather restraints, etc.). 88-Not Attempted due to Medical Conditions or Safety Concerns. On/Off Footwear: 3 Toileting Hygiene (QC): 6 Toilet Transfer (QC): 6 OT Short Term Goals Short Term Goals Time Frame: Nov 24, 2019 Eatin Oral hygiene: 5 Toileting hygiene: 5 Shower/bathe self: 4 Upper body dressin Lower body dressin Putting on/taking off footwear: 4 OT Nursing Home Goals Nursing Home Goals Time Frame: Dec 01, 2019 Eating (QC): 6 Oral Hygiene (QC): 6 Toileting Hygiene (QC): 6 Shower/Bathe Self (QC): 5 Upper Body Dressing (QC): 6 Lower Body Dressing (QC): 6 On/Off Footwear (QC): 6 Additional Goals: 1-Demonstrate ADL Tasks, 2-Verbalize Understanding, 3- ImproveStrength/Melissa 1=Demonstrate adherence to instructed precautions during ADL tasks. 2=Patient will verbalize/demonstrate understanding of assistive devices/mod ifications for ADL. 3=Patient will improve strength/tolerance for activity to enable patient to perform ADL's. OT Education/Plan Problem List/Assessment Assessment: Impaired Self-Care Skills Discharge Recommendations Plan/Recommendations: Continue POC Treatment Plan/Plan of Care Patient would benefit from OT for education, treatment and training to promote independence in ADL's, mobility, safety and/or upper extremity function for ADL's. Plan of Care: ADL Retraining, Functional Mobility, UE Funct Exercise/Act Treatment Duration: Dec 01, 2019 Frequency: At least 5 of 7 days/Wk (IRF) Estimated Hrs Per Day: .5 hour per day Agreement: Yes Rehab Potential: Fair Time/GCodes Start Time: 11:30 Stop Time: 11:44 Total Time Billed (hr/min): 14 Billed Treatment Time 1 visit-ADL 1 (14 min) ELIAN GREEN Nov 18, 2019 11:58
[2019-11-18 12:00] VITALS: BP 111/55
--- NOTE | 2019-11-18 12:14 | Consultation - Hospitalist ---
HPI History of Present Illness: HPI/Chief Complaint Monika Castro is a 79-year-old female with past medical history of atrial fibrillation on Xarelto, hypothyroidism, hyperlipidemia, GERD, osteoarthritis, who presented for a left total knee arthroplasty. She underwent surgery on 11/16. She reports that she is doing well postopShe denies any fevers or chills. She denies any chest pain or shortness of breath. She denies any abdominal pain, nausea, or vomiting. She was doing physical therapy today and reports having some issues with her neuropathy. She has not been walking yet but has gotten up to the chair. She has been using her incentive spirometer. Source: patient Exam Limitations: no limitations Date Seen 11/17/19 Attending Physician David Kumari Rachel L MD Referring Physician Date of Admission Nov 16, 2019 at 08:01 Home Medications & Allergies Home Medications Reviewed patient Home Medication Reconciliation performed by pharmacy medication reconciliations finishing technician and/or nursing. Patients Allergies have been reviewed. Allergies Allergies Coded Allergies Isosorbide Mononitrate (Verified Allergy, Unknown, 01/31/19) atorvastatin calcium (Verified Allergy, Unknown, 01/31/19) Past Mgwxvnd-Ivlvej-Fuljuu Hx Past Med/Social Hx: Reviewed Nursing Past Med/Soc Hx Patient Social History Alcohol Use: Denies Use Recreational Drug Use: No Smoking Status: Never a Smoker 2nd Hand Smoke Exposure: No Physical Abuse Screen: No Sexual Abuse: No Recent Foreign Travel: No Contact w/other who traveled: No Recent Hopitalizations: No Recent Infectious Disease Expo: No Immunizations Up To Date Tetanus Booster (TDap): Unknown Date of Pneumonia Vaccine: Nov 27, 2016 Date of Influenza Vaccine: Jul 30, 2019 Seasonal Allergies Seasonal Allergies: Yes Past Medical History Surgeries: Appendectomy, Coronary Stent, Gallbladder, Hysterectomy, Oophorectomy Cardiac: Atrial Fibrillation, Coronary Artery Disease, Hypertension : No Female Reproductive Disorders: Ovarian Cyst Hysterectomy Gastrointestinal: Gastroesophageal Reflux, Chronic Constipation Musculoskeletal: Arthritis HEENT: Cataract History of Blood Disorders: No Family History Arthritis 19 MOTHER G8 BROTHER G8 SISTER Cardiovascular disease 19 MOTHER Colon cancer G8 BROTHER Diabetes mellitus 19 FATHER 19 MOTHER G8 BROTHER Hypertension 19 MOTHER G8 BROTHER Myocardial infarction G8 BROTHER No Pertinent Family Hx Review of Systems Constitutional: no symptoms reported EENTM: no symptoms reported Respiratory: no symptoms reported Cardiovascular: no symptoms reported Gastrointestinal: no symptoms reported Genitourinary: no symptoms reported Musculoskeletal: no symptoms reported Skin: no symptoms reported Psychiatric/Neurological: Paresthesia (neuropathy) Physical Exam Physical Exam Vital Signs Vital Signs - First Documented Capillary Refill : Less Than 3 SecondsLess Than 3 Seconds Height, Weight, BMI Height: 5'7.00" Weight: 159lbs. 8.0oz. 72.167483ql; 27.91 BMI Method:Stated General Appearance: No Apparent Distress, WD/WN Respiratory: Lungs Clear, Normal Breath Sounds, No Respiratory Distress Cardiovascular: Regular Rate, Rhythm, No Edema, No Murmur Gastrointestinal: Normal Bowel Sounds, Non Tender, Soft Extremity: Normal Capillary Refill, Normal Inspection, No Pedal Edema Neurologic/Psychiatric: Alert, Oriented x3, No Motor/Sensory Deficits, Normal Mood/Affect Skin: Normal Color, Warm/Dry Results Results/Procedures Labs Laboratory Tests 11/17/19 04:40 11/18/19 04:55 Patient resulted labs reviewed. Assessment/Plan Assessment and Plan Assess & Plan/Chief Complaint Osteoarthritis Status post total knee arthroplasty Continue management per orthopedic surgery service continue incentive spirometer continue bowel regimen Continue pain regimen Continue PT/OT Atrial fibrillation Hypothyroidism Hyperlipidemia GERD Continue home meds DVT prophylaxis: Already receiving therapeutic anticoagulation Diagnosis/Problems Diagnosis/Problems (1) S/P total knee arthroplasty Qualifiers: Laterality: left Qualified Codes: Z96.652 - Presence of left artificial knee joint (2) Primary osteoarthritis of left knee Status: Chronic (3) Atrial fibrillation Status: Chronic (4) Hypothyroidism Status: Chronic (5) HLD (hyperlipidemia) Status: Chronic (6) GERD (gastroesophageal reflux disease) Status: Chronic Clinical Quality Measures DVT/VTE Risk/Contraindication: Risk Factor Score Per Nursin RFS Level Per Nursing on Admit: 4+=Very High JENSEN TONG MD Nov 18, 2019 12:13
--- NOTE | 2019-11-18 12:47 | Progress Note ---
Subjective Date Seen by a Provider: Nov 18, 2019 Time Seen by a Provider: 12:45 Subjective/Events-last exam POD 2 s/p left TKA. Doing well, ambulating with staff assistance. No complaints at this time. Objective Exam Vital Signs Date Time Temp Pulse Resp B/P (MAP) Pulse Ox O2 Delivery O2 Flow Rate FiO2 11/18/19 12:00 36.0 76 18 111/55 (73) 99 Room Air 11/18/19 09:00 Room Air 11/18/19 08:00 35.8 86 18 111/61 (78) 96 Room Air 11/18/19 04:00 36.5 79 18 102/54 (70) 92 Room Air 11/18/19 00:36 36.4 91 16 108/56 (73) 96 Room Air 11/17/19 20:30 36.8 71 18 108/60 (76) 93 Room Air 11/17/19 20:30 95 Room Air 11/17/19 16:00 36.2 76 20 105/56 (72) 94 Room Air I & O 11/18/19 07:00 Intake Total 3222 ml Balance 3222 ml Capillary Refill : Less Than 3 SecondsLess Than 3 Seconds General Appearance: No Apparent Distress Extremity: Normal Capillary Refill, No Calf Tenderness Neurologic/Psychiatric: Alert, Oriented x3, No Motor/Sensory Deficits, Normal Mood/Affect, distribution operations supervisor II-XII Norm as Tested Skin: Normal Color, Warm/Dry (dressing left knee CDI) Results Lab Laboratory Tests 11/18/19 04:55: White Blood Count 5.6, Red Blood Count 2.83L, Hemoglobin 8.7L, Hematocrit 27L, Mean Corpuscular Volume 95, Mean Corpuscular Hemoglobin 31, Mean Corpuscular Hemoglobin Concent 32, Red Cell Distribution Width 13.9, Platelet Count 98L, Mean Platelet Volume 11.5H, Neutrophils (%) (Auto) 66, Lymphocytes (%) (Auto) 17, Monocytes (%) (Auto) 15H, Eosinophils (%) (Auto) 2, Basophils (%) (Auto) 0, Neutrophils # (Auto) 3.7, Lymphocytes # (Auto) 1.0, Monocytes # (Auto) 0.8, Eosinophils # (Auto) 0.1, Basophils # (Auto) 0.0, Sodium Level 135, Potassium Level 4.3, Chloride Level 102, Carbon Dioxide Level 26, Anion Gap 7, Blood Urea Nitrogen 12, Creatinine 1.00, Estimat Glomerular Filtration Rate 53, BUN/Creatinine Ratio 12, Glucose Level 121H, Calcium Level 7.9L, Corrected Calcium 8.6, Total Bilirubin 0.5, Aspartate Amino Transf (AST/SGOT) 13, Alanine Aminotransferase (ALT/SGPT) 6, Alkaline Phosphatase 47, Total Protein 5.0L, Albumin 3.1L Assessment/Plan Assessment/Plan Assess & Plan/Chief Complaint s/p left TKA P: Continue current treatment. Plan to DC to home with [facility] therapy tomorrow. Will need home therapy 5x/week x 2 weeks. Clinical Quality Measures DVT/VTE Risk/Contraindication: Risk Factor Score Per Nursin RFS Level Per Nursing on Admit: 4+=Very High RAYMON EDUARDO APRN Nov 18, 2019 12:47
--- NOTE | 2019-11-18 12:52 | D/C HH Face to Face Order ---
D/C Face to Face Orders Reconcile Patient Problems Problems Reviewed?: Yes Instructions for Patient Via [facility], Patient Instructions/FollowUp: f/u 2 weeks Physician to follow Patient: Quoc Discharge Diet for Home: No Restrictions Patient Data-Allergies,Ht & Wt Patient Allergies: Coded Allergies: Isosorbide Mononitrate (Verified Allergy, Unknown, 01/31/19) atorvastatin calcium (Verified Allergy, Unknown, 01/31/19) Height (Feet): 5 Height (Inches): 7.00 Weight (Pounds): 159 Weight (Ounces): 8.0 Home Health Need/Face to Face Date of Face to Face: Nov 18, 2019 Clinical Findings: Muscle weakness, Pain with ambulation, Unsteady gait I have seen Pt kxjv-[id number]: Yes Discharged To: Home Diagnosis/Conditions: s/p left TKA Primary OA left knee Problems/Diagnosis/Condition: (1) Primary osteoarthritis of left knee (2) S/P total knee arthroplasty Patient is Homebound due to: Diana fall risk due to instabilty, Pain w/ambulation Homebound Status Due to the above stated illness, injury or surgical procedure (medical condi tion or diagnosis) and associated clinical findings, the patient is homebound because of his/her inability to leave home except with aid of a supportive device and/or person AND leaving the home requires a considerable and taxing effort or is medically contraindicated. Pt req the following assistanc: Cane, Walker Home Health Nursing Orders Home Health Services Order: Nursing Services, Physical Therapy-Evaluate & Treat physical therapy 5x/week x 2 weeks to assist with ambulation and treat ROM nursing to remove jose and apply steri strips in 7 days Home Health Infusion Therapy Line Start Date: Nov 16, 2019 Therapy Orders Therapy Orders: Physical Therapy Therapy Specific Orders: Eval assistive deivces, Gait training, Increase strength/endurance, Restore ROM Certify Stmt I certify that this patient is under my care and that I, a nurse practitioner or a physician; a medical assistant internal medicine working with me, had a face to face encounter that - meets the physician face to face encounter requirements with this patient as dated. RAYMON EDUARDO APRN Nov 18, 2019 12:52
[2019-11-18] MEDS ORDERED: SENN-20 PO (12:56)
[2019-11-18] MEDS ORDERED: HYDR-3820 PO (12:56)
[2019-11-18] MEDS ORDERED: ASPI-999 PO (12:56)
--- NOTE | 2019-11-18 14:11 | Physical Therapy Daily Note ---
PT Daily Note-Current Subjective Patient is agreeable to therapy at this time. Pain Numeric Pain Scale: 5-Moderate Pain Location: Left Location Body Site: Knee Mental Status Patient Orientation: Normal For Age Transfers SCALE: Activities may be completed with or without assistive devices. 8-Gxhfoclizw-cjhmeal completes the activity by him/herself with no assistance from a helper. 5-Set-up or Clean-up Assistance-helper sets up or cleans up; patient completes activity. Dix assists only prior to or following the activity. 4-Supervision or Touching Assistance-helper provides verbal cues and/or touching/steadying and/or contact guard assistance as patient completes activity. Assistance may be provided throughout the activity or intermittently. 3-Partial/Moderate Assistance-helper does LESS THAN HALF the effort. Dix lifts, holds or supports trunk or limbs, but provides less than half the effort. 2-Substantial/Maximal Assistance-helper does MORE THAN HALF the effort. Dix lifts or holds trunk or limbs and provides more than half the effort. 2-Kbgtfztux-ceqkuk does ALL the effort. Patient does none of the effort to complete the activity. Or, the assistance of 2 or more helpers is required for the patient to complete the activity. If activity was not attempted, code reason: 7-Patient Refused. 9-Not Applicable-not attempted and the patient did not perform the activity before the current illness, exacerbation or injury. 10-Not Attempted due to Environmental Limitations-(lack of equipment, weather restraints, etc.). 88-Not Attempted due to Medical Conditions or Safety Concerns. Roll Left & Right (QC): 6 Lying to Sitting/Side of Bed(Q: 6 Sit to Stand (QC): 4 Chair/Ebp-gk-Tdpdl Xfer(QC): 4 Toilet Transfer (QC): 4 Weight Bearing Right Lower Extremity: Right Full Weight Bearing Left Lower Extremity: Left Non Weight Bearing No weight bearing until 0800 on POD 1 after femoral nerve block on affected Gait Training Does the Patient Walk?: Yes Distance: 150' Walk 10 feet (QC): 4 Walk 50 ft with 2 Turns(QC): 4 Walk 150 ft (QC): 4 Gait Persons Needed: 1 Gait Assistive Device: FWW SBA to CGA for safety. Wheelchair Training Does the Pt Use a Wheelchair?: No Exercises Supine Ex: Ankle pumps, Quad Set, Heel Slides, Short Arc Quads, Straight leg raise Supine Reps: 10 (LLE only) Assessment Current Status: Good Progress Patient is stable during ambulation with cueing to stay inside walker and stand upright. PT Blood Donor Recruiter Goals Blood Donor Recruiter Goals PT Fdc Goals Time Frame: Nov 23, 2019 Roll Left & Right (QC): 6 Sit to Lying (QC): 6 Lying-Sitting on Side/Bed(QC): 6 Sit to Stand (QC): 4 Chair/Djh-zo-Ibqde Xfer(QC): 4 Walk 10 feet (QC): 4 Walk 50ft with 2 Turns (QC): 4 PT Plan Problem List Problem List: Activity Tolerance, Functional Strength, Safety, Balance, Gait, T ransfer, Bed Mobility Treatment/Plan Treatment Plan: Continue Plan of Care Treatment Plan: Bed Mobility, Education, Functional Activity Melissa, Functional Strength, Gait, Safety, Therapeutic Exercise, Transfers Treatment Duration: Nov 23, 2019 Frequency: 11 times per week Estimated Hrs Per Day: .25 hour per day Patient and/or Family Agrees t: Yes Safety Risks/Education Patient Education: Gait Training, Transfer Techniques Teaching Recipient: Patient Teaching Methods: Discussion Response to Teaching: Reinforcement Needed Time/GCodes Time In: 1333 Time Out: 1402 Total Billed Treatment Time: 29 Total Billed Treatment 1 visit EX 15 GT 14 JYOTSNA SMITH PT Nov 18, 2019 14:11
[2019-11-18 16:00] VITALS: BP 106/60
--- NOTE | 2019-11-18 16:48 | NUR ---
PT AMBULATING (APPROX. 70FT) IN [place] WITH FAMILY Addendum: 11/18/19 at 1651 by GERRY EMANUEL RN PT AMBULATING IN [place] (APPROX 150FT) WITH FAMILY
[2019-11-18 20:00] VITALS: BP 102/56
[2019-11-18] MEDS: RIVAROXABAN 20 MG TABLET (XARELTO) PO SCH (22:04)
[2019-11-18] MEDS: SENNA W/DOCUSATE (SENOKOT S) TABLET PO SCH (22:04)
[2019-11-19] VITALS: BP 110/66
[2019-11-19] MEDS: IBUPROFEN TABLET 200 MG TAB PO SCH ×2 (00:46→05:46)
[2019-11-19 04:00] VITALS: BP 110/62
[2019-11-19 05:09] LABS: HEMOGLOBIN 8.5 G/DL (11.5-16.0)
[2019-11-19] MEDS: GABAPENTIN 100 MG (NEURONTIN) CAP PO SCH (05:46)
[2019-11-19] MEDS: KCL 20 MEQ TAB (K-DUR) PO SCH (05:47)
[2019-11-19] MEDS: HYDROcodone/APAP 10 MG/325 MG (LORTAB) TAB PO PRN (06:45)
[2019-11-19 08:00] VITALS: BP 100/60
--- NOTE | 2019-11-19 08:31 | Progress Note ---
Subjective Date Seen by a Provider: Nov 19, 2019 Time Seen by a Provider: 08:29 Subjective/Events-last exam POD 3 s/p left TKA, She is doing well, no complaints, daughter at bedside. Objective Exam Vital Signs Date Time Temp Pulse Resp B/P (MAP) Pulse Ox O2 Delivery O2 Flow Rate FiO2 11/19/19 04:00 36.6 92 18 110/62 (78) 91 Room Air 11/19/19 00:00 36.8 118 20 110/66 (81) 95 Room Air 11/18/19 20:38 94 Room Air 11/18/19 20:00 37.1 83 18 102/56 (71) 94 Room Air 11/18/19 16:00 36.7 75 18 106/60 (75) 98 Room Air 11/18/19 12:00 36.0 76 18 111/55 (73) 99 Room Air 11/18/19 09:00 Room Air I & O 11/19/19 07:00 Intake Total 2910 ml Balance 2910 ml Capillary Refill : Less Than 3 SecondsLess Than 3 Seconds General Appearance: No Apparent Distress Respiratory: Lungs Clear, Normal Breath Sounds Cardiovascular: Regular Rate, Rhythm, No Edema Gastrointestinal: non tender, soft Extremity: Normal Capillary Refill, No Calf Tenderness Neurologic/Psychiatric: Alert, Oriented x3, No Motor/Sensory Deficits, Normal Mood/Affect Skin: Normal Color, Warm/Dry (dressing left knee CDI) Results Lab Laboratory Tests 11/19/19 04:05: Hemoglobin 8.5L, Hematocrit 26L Assessment/Plan Assessment/Plan Assess & Plan/Chief Complaint s/p left TKA P: DC to home with HHC therapy today. Will need home therapy 5x/week x 2 weeks. Clinical Quality Measures DVT/VTE Risk/Contraindication: Risk Factor Score Per Nursin RFS Level Per Nursing on Admit: 4+=Very High RAYMON EDUARDO APRN Nov 19, 2019 08:31
[2019-11-19] MEDS: LORATADINE (CLARITIN) 10 MG TAB PO SCH (09:41)
[2019-11-19] MEDS: FUROSEMIDE 20 MG (LASIX) TAB PO SCH (09:41)
[2019-11-19] MEDS: CYANOCOBALAMIN 1,000 MCG (VITAMIN B-12) TABLET PO SCH (09:41)
[2019-11-19] MEDS: LEVOTHYROXINE 50 MCG (LEVOTHROID) TAB PO SCH (09:41)
[2019-11-19] MEDS: ASPIRIN 81 MG CHEW (CHILDREN'S ASA) PO SCH (09:41)
[2019-11-19] MEDS: CARVEDILOL 3.125 MG (COREG) TABLET PO SCH (09:41)
[2019-11-19] MEDS: PANTOPRAZOLE 40 MG (PROTONIX) TAB PO SCH (09:41)
--- NOTE | 2019-11-19 10:13 | Physical Therapy Progress Note ---
Therapy Progress Note Patient is up IND with family walking in the hallways and is discharging later today. Patient and family educated on use of polar pack and CPM. Patient encouraged to keep performing exercises IND at home. 1 visit JYOTSNA SMITH PT Nov 19, 2019 10:13
--- NOTE | 2019-11-19 10:34 | NUR ---
Pt ready for discharge home. Pt given preference list of Home Health Care agencies and she chose [facility] as has received their services in the past. Pt will be cared for by family. A daughter from out of town will be with her and will transfer her caregiving to another daughter. Pt's also in the home. CPM machine in the room and delivered for home use. Faxed physician orders and medical instructions to [facility].
[2019-11-19 10:45] VITALS: BP 100/60
[2019-11-19] MEDS: CALCITRIOL 0.25 MCG (ROCALTROL) CAPSULE PO SCH (11:07)
== END 2019-11-19 10:45 | disposition home health service (06) | DRG 470 ==
LOC: 4TH 08:01 → SURG 08:02 → 4TH 13:45
PROVIDERS: ADMIT Orthopaedic Surgery; ATTEND Orthopaedic Surgery
PROC: 0SRD0J9 Replacement of Left Knee Joint with Synthetic Substitute, Cemented, Open Approach (ICD-10-PCS; principal; 2019-11-16 10:25)
DX: M17.12 Unilateral primary osteoarthritis, left knee (principal); I25.10 Atherosclerotic heart disease of native coronary artery without angina pectoris; I10 Essential (primary) hypertension; I48.91 Unspecified atrial fibrillation; E03.9 Hypothyroidism, unspecified; G47.33 Obstructive sleep apnea (adult) (pediatric); K59.09 Other constipation; K21.9 Gastro-esophageal reflux disease without esophagitis; G62.9 Polyneuropathy, unspecified; E78.5 Hyperlipidemia, unspecified; N28.9 Disorder of kidney and ureter, unspecified; D16.22 Benign neoplasm of long bones of left lower limb; Z95.5 Presence of coronary angioplasty implant and graft; Z79.01 Long term (current) use of anticoagulants
CPT/HCPCS: 36415; 73560; 80048; 80053; 85014; 85018; 85025; 85027; 85610; 86850; 86900; 86901; 94664

== ENCOUNTER → 2021-06-20 | Outpatient (CLI) | payer MEDICARE, OTHER ==
[~2021-06-20] MED LIST changes: +ACHYD1T PO; +ASPI-999 PO; -ISOS30TA3 PO; +ISOS30TA82 PO; -OMEP-280 PO; +OMEP20CA18 PO; -PANT40TA3 PO; +PANT40TA52 PO; +SENN-20 PO
== END ==
LOC: CARD 08:30
PROVIDERS: ATTEND Internal Medicine Cardiovascular Disease
DX: I11.9 Hypertensive heart disease without heart failure (principal); I25.10 Atherosclerotic heart disease of native coronary artery without angina pectoris; I08.3 Combined rheumatic disorders of mitral, aortic and tricuspid valves
CPT/HCPCS: 93306

== ENCOUNTER → 2022-01-14 | Outpatient (CLI) | payer MEDICARE, OTHER ==
[~2022-01-14] VITALS: Ht 170 cm; Wt 72.0 kg
[~2022-01-14] MED LIST changes: +CATHETER FLUSH 10 ML SYR IVP PRN; +FEXO-249 PO; -FEXO-46 PO; +REGADENOSON 0.4 MG/5 ML SYR (LEXISCAN) IV ONE
[2022-01-14 08:52] VITALS: BP 186/87
--- NOTE | 2022-01-16 08:37 | Cardiology Stress Test Report ---
Stress Test Report Date of Procedure/Referring: Date of Procedure: Jan 14, 2022 Shahana Baron Admitting Physician Kristen Morton MD Indications: a fib Baseline Heart Rate: 94 Baseline Blood Pressure: Blood Pressure Systolic: 186 Blood Pressure Diastolic: 87 Baseline Vitals Vital Signs Date Time Temp Pulse Resp B/P (MAP) Pulse Ox O2 Delivery O2 Flow Rate FiO2 01/14/22 08:52 74 186/87 (120) 99 Baseline EKG: Baseline EKG: a fib Summary After explaining the procedure to the patient, she signed a consent and then brought to the stress nuclear laboratory. Patient received 0.4 mg Lexiscan for stress test, ECG, heart rate and blood pressure were monitored continuously. Resting and stress dose of radio tracer were injected, imaging was acquired and reviewed in short axis, horizontal long axis and vertical long axis views. TID: 1.03 SSS: 6 SDS: 3 EF: 79 1. Patient tolerated Lexiscan well 2. Baseline atrial fibrillation persisted during test 3. Breast attenuation with decreased uptake involving the mid to apical anterior wall and anterolateral wall with moderate reversibility 4. Normal left ventricular size, ejection fraction 79%, gated images are unreliable due to underlying atrial fibrillation AMADA STOUT MD Jan 16, 2022 08:37
== END ==
LOC: CARD 07:30
PROVIDERS: ATTEND Physician Assistant
DX: I25.10 Atherosclerotic heart disease of native coronary artery without angina pectoris (principal)
CPT/HCPCS: 78452; 93017; A9502

== ENCOUNTER 2022-01-23 09:00 | Day surgery (SDC) | payer MEDICARE, OTHER ==
[2022-01-23] VITALS (10 sets, daily range): BP systolic 109–170; BP diastolic 61–97
[~2022-01-23] VITALS: Ht 170.1 cm; Wt 73.8 kg
[2022-01-23 07:26] LABS: BILIRUBIN,URINE NEGATIVE (NEGATIVE); CLARITY,URINE CLEAR; COLOR,URINE YELLOW; GLUCOSE, URINE (UA) NEGATIVE (NEGATIVE); HEMATOCRIT 40 % (35-52); HEMOGLOBIN 13.2 g/dL (11.5-16.0); KETONES,URINE NEGATIVE (NEGATIVE); LEUKOCYTE ESTERASE ,URINE TRACE (NEGATIVE); MEAN CORPUSCULAR HEMOGLOBIN 31 pg (25-34); MEAN CORPUSCULAR HGB CONC 33 g/dL (32-36); MEAN CORPUSCULAR VOLUME 94 fL (80-99); MEAN PLATELET VOLUME 11.1 fL (9.0-12.2); NITRITE,URINE NEGATIVE (NEGATIVE); PLATELET COUNT 182 10^3/uL (130-400); PROTEIN,URINE NEGATIVE (NEGATIVE); WHITE BLOOD COUNT 4.2 10^3/uL (4.3-11.0)
--- NOTE | 2022-01-23 07:28 | Diagnostic Imaging Report ---
EXAM: CHEST 1 VIEW, AP/PA ONLY INDICATION: Abnormal stress test. Coronary artery disease. COMPARISON: 12/11/2016. FINDINGS: Stable heart size and central pulmonary vascularity. No focal pulmonary opacity. No pleural effusion or pneumothorax. No acute osseous findings. IMPRESSION: No acute cardiopulmonary findings. Dictated by: Dictated on workstation # [id number]
[2022-01-23 07:34] LABS: ALBUMIN 4.2 GM/DL (3.2-4.5); POTASSIUM 3.5 MMOL/L (3.6-5.0)
[2022-01-23 07:35] LABS: CALCIUM 9.7 MG/DL (8.5-10.1)
[2022-01-23 07:37] LABS: TOTAL PROTEIN 6.7 GM/DL (6.4-8.2)
[2022-01-23 07:38] LABS: BILIRUBIN,TOTAL 0.9 MG/DL (0.1-1.0)
[2022-01-23 07:40] LABS: CREATININE SERUM 0.93 MG/DL (0.60-1.30)
--- NOTE | 2022-01-23 08:12 | Conscious Sedation/ASA ---
Conscious Sedation Pre-Proced Time 08:12 ASA Score 3 For ASA 3 and 4: Consider anesthesia and medical clearance. Also, for patients with a history of failed moderate sedation consider anesthesia. Airway Lungs Heart ASA score ASA 1: a normal healthy patient ASA 2: a patient with a mild systemic disease (mid diabetes, controlled hypertension, obesity x ASA 3: a patient with a severe systemic disease that limits activity (angina, COPD, prior Myocardial infarction) ASA 4: a patient with an incapacitating disease that is a constant threat to life (CHF, renal failure) ASA 5: a moribund patient not expected to survive 24 hrs. (ruptured aneurysm) ASA 6: a declared brain- patient whose organs are being harvested. For emergent operations, add the letter E after the classification Mallampati Classification Grade 3 Sedation Plan Analgesia, Amnesia, Plan communicated to team members, Discussed options with patient/fam, Discussed risks with patient/fam The patient is an appropriate candidate to undergo the planned procedure, sedation, and anesthesia. The patient immediately re-assessed prior to indication. AMADA STOUT MD Jan 23, 2022 08:12
[2022-01-23 08:13] LABS: BACTERIA,URINE SMALL /HPF; INR 1.1 (0.8-1.4); PROTHROMBIN TIME PATIENT 14.7 SEC (12.2-14.7)
--- NOTE | 2022-01-23 08:53 | Discharge Inst-Post CATH ---
Discharge Inst-CATH/EP Problems Reviewed?: Yes Post Cardiac Cath/EP D/C Inst Follow Up/Plan Appointment with Dr. Tabor's office in 2 to 4 weeks <b>CARDIAC CATH/EP PROCEDURE DISCHARGE INSTRUCTIONS</b> ACTIVITY * Go Home directly and rest. * Limit activity of the leg (or wrist if it was used) for 7 days including aer obics, swimming, jogging, bicycling, etc. * Restrict stair-climbing for 7 days if possible, if not, climb up with your non-cath leg, then bring together on the same step. * Avoid lifting, pushing, pulling or excessive movement of the affected extremi ty for 7 days. * Customary sexual activity may be resumed after 2 days-use caution not to use a position that strains or causes pain to the affected extremity. * No driving for 24 hours. * NO SMOKING. * Avoid straining for bowel movements for 7 days. * Gentle walking on level ground is allowed. * Returning to work will depend on the type of procedure and the results. Your doctor will discuss this with you. CALL YOUR DOCTOR FOR ANY OF THE FOLLOWING: *If bleeding from the puncture site occurs- Apply gentle pressure to site with clean cloth and call your doctor or EMS. * If a knot or lump forms under the skin, increases in size, or causes pain. * If bruising appears to be worsening or moving further down your leg instead of disappearing. * Temperature above 101 F. CARE OF YOUR GROIN INCISION; * Bruising or purple discoloration of the skin near the puncture site is common. * You may shower only, no bathtub bathing for 5 days. Be careful to avoid slipping as your leg may feel stiff. * If a closure device was used on your femoral artery, please see the attached guide regarding care of the device and your leg. * Leave dressing on FOR 24 hours. CARE OF YOUR WRIST INCISION; * Bruising or purple discoloration of the skin near the puncture site is common. * You may shower. * DO NOT submerge wrist. * Leave dressing on FOR 24 hours. AMADA TABOR MD Jan 23, 2022 08:53
--- NOTE | 2022-01-23 08:58 | Cardiac Cath Report ---
Cardiac Cath Report Physician (s)/Braider Operator (s) Physician AMADA STOUT MD Pre-Procedure Diagnosis Pre-Procedure Diagnosis: Coronary artery disease Post-Procedure Note Procedure Start Date: Jan 23, 2022 Name of Procedure: Coronary angiogram Aortic arch angiogram Findings/Procedure Note PROCEDURE NOTE: 81-year-old lady with history of coronary artery disease, multiple interventions in the past, had an abnormal stress test, scheduled for cardiac catheterization possible PTCA. After explaining the procedure to the patient, all pros and cons were explained, all questions were answered. The patient signed the consent and then she was placed on the cardiac catheterization laboratory. Groin was prepped SL fashion local anesthesia was used. Sheath placed in the right radial artery, [place] catheter was advanced to the ascending aorta, I was unable to cross the aortic valve. I had difficulty advancing through the brachiocephalic artery due to tortuosity. Engaged the right and left coronary system and angiogram was done. I exchanged the catheter and used a straight pigtail catheter, tried to cross the aortic valve without success. I pulled back to the aortic arch and performed aortic arch angiogram. At the end of the procedure the sheath was removed. Vascular band was used FINDINGS: Hemodynamics LV was not evaluated, did not cross the aortic valve Aorta 119/60 mean of 79 ANATOMY: Left Main is free of obstructive disease Left Anterior Descending has patent proximal and mid stent, small vessel disease distally. Nonobstructive disease Left Circumflex is moderate in size with mild disease nonobstructive disease Right Coronary Artery is dominant artery with mild disease nonobstructive disease LV Gram was not done Aorta evaluation with aortic arch angiogram showed prominent aortic arch and ascending aorta, tortuous brachiocephalic artery, no obstructive disease, normal left subclavian and left carotid arteries. CONCLUSION: 1. Patent stent in the proximal and mid LAD, small vessel disease distally, nonobstructive disease 2. Otherwise mild coronary artery disease nonobstructive disease 3. Prominent ascending aorta and aortic arch, no dissection. Tortuous brachiocephalic artery. No obstructive disease in the neck DISCUSSION AND RECOMMENDATION: Abnormal stress test is probably due to small vessel disease, medical therapy is recommended no intervention is warranted During recovery phase patient was noted to have multiple episodes of bradycardia with a heart rate around 30 bpm. I instructed her to stop carvedilol and continue to monitor heart rate as an outpatient Anesthesia Type: Conscious Sedation Estimated blood loss (mL): 20 ml Contrast Amount: 50 ml Total Radiation Dose: 388 mGy Post-Procedure Diagnosis Post-operative diagnosis: Chest pain Corornary artery disease Hypertension Hyperlipidemia AMADA STOUT MD Jan 23, 2022 08:58
[~2022-01-23 09:00] MED LIST changes: +ACET1TAB43 PO; -CATHETER FLUSH 10 ML SYR IVP PRN; +CHOL10004 PO; +CRAN500T3 PO; +HEParin (CATH LAB) 2,000 ML IV ONE; +HEParin 1000 UNIT/ML (10ML VIAL) FOR BOLUS ONE; +LIDOCAINE 1% INJ 20 ML VIAL ONE; +MIDAZOLAM 5 MG/5 ML (VERSED) VIAL ONE; +NITR0.4T39 SL; +NITRO DRIP 25000 MCG/D5W 250 ML IV ONE; +NS IV 1000 ML 1,000 ML IV SCH; +NS IV 1000 ML 1,000 ML ONE; -REGADENOSON 0.4 MG/5 ML SYR (LEXISCAN) IV ONE; +VERAPAMIL 5 MG/2 ML (CALAN) VIAL IV ONE; +fentaNYL INJ 100 MCG/2 ML AMP ONE
== END 2022-01-23 12:20 ==
LOC: CATH 09:00
PROVIDERS: ATTEND Internal Medicine Cardiovascular Disease
DX: I25.10 Atherosclerotic heart disease of native coronary artery without angina pectoris (principal); I48.19 Other persistent atrial fibrillation; I49.5 Sick sinus syndrome; J44.9 Chronic obstructive pulmonary disease, unspecified; G47.33 Obstructive sleep apnea (adult) (pediatric); I34.0 Nonrheumatic mitral (valve) insufficiency; I37.1 Nonrheumatic pulmonary valve insufficiency; I65.23 Occlusion and stenosis of bilateral carotid arteries; I12.9 Hypertensive chronic kidney disease with stage 1 through stage 4 chronic kidney disease, or unspecified chronic kidney disease; I50.9 Heart failure, unspecified; T50.995A Adverse effect of other drugs, medicaments and biological substances, initial encounter; N18.9 Chronic kidney disease, unspecified; E03.9 Hypothyroidism, unspecified; K21.9 Gastro-esophageal reflux disease without esophagitis; R60.0 Localized edema; M79.662 Pain in left lower leg; M79.661 Pain in right lower leg; E78.2 Mixed hyperlipidemia; Z79.899 Other long term (current) drug therapy; Z95.5 Presence of coronary angioplasty implant and graft; Z99.89 Dependence on other enabling machines and devices; Z79.890 Hormone replacement therapy
CPT/HCPCS: 36221; 71045; 80053; 80061; 81000; 85027; 85610; 85730; 87081; 93005; 93454; C1894; 36415

== ENCOUNTER 2022-03-13 07:13 | Outpatient (CLI) | payer MEDICARE, OTHER ==
[~2022-03-13] VITALS: Ht 170.2 cm; Wt 71.5 kg
[~2022-03-13 07:13] MED LIST changes: +ACET-11 PO; -ACET1TAB43 PO; -FEXO-249 PO; -HEParin (CATH LAB) 2,000 ML IV ONE; -HEParin 1000 UNIT/ML (10ML VIAL) FOR BOLUS ONE; -LIDOCAINE 1% INJ 20 ML VIAL ONE; -MIDAZOLAM 5 MG/5 ML (VERSED) VIAL ONE; +NF-ALLE180 PO; -NITRO DRIP 25000 MCG/D5W 250 ML IV ONE; -NS IV 1000 ML 1,000 ML IV SCH; -NS IV 1000 ML 1,000 ML ONE; -VERAPAMIL 5 MG/2 ML (CALAN) VIAL IV ONE; -fentaNYL INJ 100 MCG/2 ML AMP ONE
== END 2022-03-13 13:00 | disposition home or self-care (01) ==
LOC: PREOP 07:13
PROVIDERS: ATTEND Surgery
DX: Z01.818 Encounter for other preprocedural examination (principal)

== ENCOUNTER 2022-03-20 11:35 | Day surgery (SDC) | payer MEDICARE, OTHER ==
[~2022-03-20] VITALS: Ht 170.2 cm; Wt 71.5 kg
[2022-03-20] MEDS ORDERED: LACTATED RINGERS 1,000 ML IV STA (11:37)
[2022-03-20] MEDS ORDERED: LIDOCAINE JELLY 2% 6 ML SYRINGE MM PRN (11:45)
[2022-03-20] MEDS ORDERED: HURRICAINE EXT TUBE (BENZOCAINE) XX PRN (11:45)
[2022-03-20] MEDS ORDERED: LACTATED RINGERS 1,000 ML IV ONE (11:46)
[2022-03-20 11:50] VITALS: BP 142/84
--- NOTE | 2022-03-20 12:06 | Progress Note-Pre Operative ---
Pre-Operative Progress Note H&P Reviewed The H&P was reviewed, patient examined and no changes noted. Date Seen by Provider: Mar 20, 2022 Time Seen by Provider: 12:00 Date H&P Reviewed: Mar 20, 2022 Time H&P Reviewed: 12:00 Pre-Operative Diagnosis: BENIGNO SORTO MD Mar 20, 2022 12:06
[2022-03-20] MEDS ORDERED: PANT40TA2 PO (12:07)
--- NOTE | 2022-03-20 12:08 | Discharge Inst-Surgical ---
D/C Lap Instructions-KIDO New, Converted, or Re-Newed RX: RX on Chart Follow Up Activity as tolerated High Fiber Diet 25g or more per day Avoid Alcohol, Caffeine, Spicy [place] and Acid foods. Drink 64 fluid oz or more of fluids per day. Symptoms to Report: Fever over 101 degree F, Nausea/Vomiting If any problems/questions: Contact your physician or go to Emergency Room BENIGNO VOGEL MD Mar 20, 2022 12:08
[2022-03-20] MEDS ORDERED: ONDANSETRON 4 MG/2 ML (SDV) Z0FRAN IVP PRN (12:15)
[2022-03-20] MEDS ORDERED: ONDANSETRON 4 MG (ZOFRAN) ORAL DISSOLVE TAB PO PRN (12:15)
[2022-03-20] MEDS ORDERED: PROPOFOL INJECTION 50 ML IV ONE (12:41)
[2022-03-20 13:10] VITALS: BP 113/57
[2022-03-20 13:15] VITALS: BP 124/59
[2022-03-20 13:20] VITALS: BP 124/60
[2022-03-20] MEDS ORDERED: ONDANSETRON 4 MG/2 ML (SDV) Z0FRAN ONE (13:32)
[2022-03-20 14:00] VITALS: BP 159/89
--- NOTE | 2022-03-20 14:19 | Anesthesia-General Post-Op ---
MAC Patient Condition Mental Status/LOC: Same as Preop Cardiovascular: Satisfactory Nausea/Vomiting: Absent Respiratory: Satisfactory Pain: Controlled Complications: Absent Post Op Complications Complications None Follow Up Care/Instructions Patient Instructions None needed. Anesthesiology Discharge Order Discharge Order Patient is doing well, no complaints, stable vital signs, no apparent adverse anesthesia problems. No complications reported per nursing. SANTOS NEUMANN CRNA Mar 20, 2022 14:19
--- NOTE | 2022-03-20 14:31 | Progress Note-Post Operative ---
Post-Operative Progess Note Surgeon (s)/Client Services Account Manager (s) Surgeon BENIGNO VOGEL MD Client Services Account Manager: none Pre-Operative Diagnosis GERD Post-Operative Diagnosis reflux esophagitis(grade C), dist esoph stricture, Procedure & Operative Findings Date of Procedure 03/20/22 Procedure Performed/Findings EGD with bx and balloon dilatation. Anesthesia Type mac Estimated Blood Loss Estimated blood loss (mL): minimal Specimens/Packing Specimens Removed ge jxn, antrum BENIGNO VOGEL MD Mar 20, 2022 14:31
--- NOTE | 2022-03-20 22:47 | OPERATIVE REPORT ---
DATE OF SERVICE: 03/20/2022 ATTENDING PRIMARY CARE PHYSICIAN: Dr. Darrin Villagran. PREOPERATIVE DIAGNOSES: Gastroesophageal reflux disease, chest pain, dysphagia. POSTOPERATIVE DIAGNOSES: Reflux esophagitis, [place] grade C with a distal esophageal stricture, moderate-sized type 3 hiatal hernia approximately 3.5 cm in size, severe gastritis. No distal obstructions. PROCEDURE: EGD with biopsy and balloon dilatation. SURGEON: Benigno Vogel MD ANESTHESIA: Monitored anesthesia care. ESTIMATED BLOOD LOSS: Minimal. FINDINGS: Reflux esophagitis, [place] grade C with a distal esophageal stricture, moderate sized type 3 hiatal hernia approximately 3.5 cm in size, severe gastritis. No distal obstructions. DISPOSITION: The patient tolerated the procedure well. INDICATIONS: The patient is an 81-year-old female, who has had issues with epigastric pain with radiation towards the shoulder and jaw. She was seen by her lead systems engineer and underwent a cardiac catheterization, which was normal. She has had a longstanding history of gastroesophageal reflux disease and this has worsened over time and she also has developed dysphagia. The patient was brought to the endoscopy suite, laid in the left lateral decubitus position. After adequate IV pain and sedative medications and monitored anesthesia care, mouthpiece was applied. The endoscope was placed in the mouth, visualizing the pharynx and hypopharyngeal region. Vocal cords, epiglottis and vallecula identified and appeared to be normal. The endoscope was then gently intubated into the esophageal opening and esophagus insufflated. The endoscope was then advanced through the first, second and third portion of the esophagus at the level of the GE junction. Reflux esophagitis, [place] grade C identified with a distal esophageal stricture also identified. A biopsy was taken with forceps with visualization of good hemostasis. The endoscope was then advanced in the stomach and endoscope retroflexed, visualizing a moderate sized type 3 hiatal hernia approximately 3.5 cm in size. There was a severe gastritis also noted more towards the stomach antrum. A biopsy was taken of stomach antrum to rule out H. pylori with visualization of good hemostasis. The endoscope was then advanced to the pylorus and the first and second portion of the duodenum, which appeared normal with no distal obstructions. The balloon was then placed in the stomach and pulled back to the area of the stricture. We then proceeded in a stepwise graded fashion from 2, 4, then eventually 6 atmospheres of pressure or 20 mm in luminal diameter with moderate resistance and left this in place for 60 seconds. The balloon was then desufflated and removed with visualization of good hemostasis as well as no mucosal tears. The endoscope was then slowly withdrawn while taking a second look and suctioning of residual air with no additional findings. The patient tolerated the procedure well. We will recommend the necessary lifestyle and dietary accommodation including small and more frequent meals, avoiding to eating at night as well as head elevation while lying supine. She also needs to avoid caffeinated beverages, spicy, greasy and acidic foods. We will also start her on omeprazole to be taken in conjunction with her pantoprazole to be taken at a different time during the day. If she does have recurrent issues with dysphagia, we will have her follow up for repeat dilatation. Job ID: [id number] DocumentID: [id number] Dictated Date: 03/20/2022 13:17:36 [employer]ness Programs Director Date: 03/20/2022 22:46:31 Dictated By: BENIGNO VOGEL MD
== END 2022-03-20 14:15 | disposition home or self-care (01) ==
LOC: ENDO 11:35
PROVIDERS: ATTEND Surgery
DX: K21.00 Gastro-esophageal reflux disease with esophagitis, without bleeding (principal); K22.2 Esophageal obstruction; K29.70 Gastritis, unspecified, without bleeding; K44.9 Diaphragmatic hernia without obstruction or gangrene; Z79.01 Long term (current) use of anticoagulants; Z79.899 Other long term (current) drug therapy; Z85.828 Personal history of other malignant neoplasm of skin; Z95.5 Presence of coronary angioplasty implant and graft; Z88.8 Allergy status to other drugs, medicaments and biological substances; Z28.310 Unvaccinated for COVID-19; E66.9 Obesity, unspecified; Z28.29 Immunization not carried out because of patient decision for other reason; I25.10 Atherosclerotic heart disease of native coronary artery without angina pectoris; I48.19 Other persistent atrial fibrillation; I49.5 Sick sinus syndrome; J44.9 Chronic obstructive pulmonary disease, unspecified; G47.33 Obstructive sleep apnea (adult) (pediatric); I65.23 Occlusion and stenosis of bilateral carotid arteries; I07.1 Rheumatic tricuspid insufficiency; I37.1 Nonrheumatic pulmonary valve insufficiency; E78.5 Hyperlipidemia, unspecified; R60.9 Edema, unspecified; N18.9 Chronic kidney disease, unspecified; E78.2 Mixed hyperlipidemia; I13.0 Hypertensive heart and chronic kidney disease with heart failure and stage 1 through stage 4 chronic kidney disease, or unspecified chronic kidney disease; Z68.24 Body mass index [BMI] 24.0-24.9, adult; I50.9 Heart failure, unspecified; Z86.16 Personal history of COVID-19